=== PATIENT | male | born 1970 | race Caucasian/White ===

== ENCOUNTER 2023-04-12 13:02 | Outpatient (CLI) | payer MEDICAID, SELFPAY | END 2023-04-12 13:03 | disposition home or self-care (01) | PROVIDERS: PCP Internal Medicine; Visit Provider Internal Medicine | DX: E78.5 Hyperlipidemia, unspecified (principal); Z12.5 Encounter for screening for malignant neoplasm of prostate; Z13.29 Encounter for screening for other suspected endocrine disorder | CPT/HCPCS: 80053; 80061; 84153; 84443 ==

== ENCOUNTER 2023-07-20 08:12 | Outpatient (CLI) | payer MEDICAID, SELFPAY | END 2023-07-20 08:13 | disposition home or self-care (01) | PROVIDERS: PCP Internal Medicine; Visit Provider Internal Medicine | DX: R63.4 Abnormal weight loss (principal) | CPT/HCPCS: 80053; 84443 ==

== ENCOUNTER 2023-07-26 14:04 | Outpatient (CLI) | payer MEDICAID, SELFPAY ==
--- NOTE | 2023-07-26 15:00 | CRLHL7_ITS ---
For Patients: As a result of the Century Cures Act, medical imaging exams and procedure reports are released immediately into your electronic medical record. You may view this report before your referring provider. If you have questions, please contact your health care provider. Indication: RECENT WEIGHT LOSS, FATIGUE, ABD PAIN, LBP, SHOULDER PAIN Technique: Postcontrast CT chest, abdomen and pelvis. 74 cc Isovue 370 intravenous contrast Please note that all CT scans at this facility use dose modulation, iterative reconstruction, and/or weight-based dosing when appropriate to reduce radiation dose to as low as reasonably achievable. Comparison: 03/27/2023 Findings: In the chest, there is a 1.2 cm lobular nodule within the periphery of the right lower lobe. No pleural effusion. Mild dependent atelectasis. Mild fullness of the right hilar lymph nodes measuring up to 1.1 cm. No enlarged mediastinal lymph nodes. No pneumothorax. No fracture. In the abdomen, no intrahepatic mass is present. The gallbladder is normal. Hypodense lesion within the tail of the pancreas measuring 1.3 cm. Spleen is normal. Adrenal glands unremarkable. Ill-defined stranding within the left upper retroperitoneal fat. Mildly prominent periportal lymph nodes measuring up to 1.2 cm. Vascular calcifications. In the pelvis, there is increased stool in the rectum. No bowel obstruction. No free air or free fluid. No abscess. The appendix is absent. No abdominal wall hernia. Postop changes of bilateral vasectomy. Degenerative changes L3-4 and L5-S1. Impression: 1.3 cm hypodense lesion within the tail of the pancreas. Interval development of adjacent inflammatory changes within the upper left retroperitoneal fat. Differential diagnosis includes infected/inflamed pancreatic cyst, focal pancreatitis or solid mass. Pre and postcontrast MRI of the pancreas recommended for further evaluation. Lobular pulmonary nodule within the right lower lobe measuring 1.2 cm with suspicion of mild right hilar adenopathy. CT PET recommended for further evaluation. Please note that all CT scans at this facility use dose modulation, iterative reconstruction, and/or weight-based dosing when appropriate to reduce radiation dose to as low as reasonably achievable. Dictated by Galen Momin MD @ 07/28/2023 12:40:09 PM (Electronically Signed)
== END 2023-07-26 14:05 | disposition home or self-care (01) ==
LOC: CT 14:05
PROVIDERS: PCP Internal Medicine; Visit Provider Internal Medicine
DX: R63.4 Abnormal weight loss (principal); R91.1 Solitary pulmonary nodule; K86.9 Disease of pancreas, unspecified; R53.83 Other fatigue; R10.9 Unspecified abdominal pain
CPT/HCPCS: 71260; 74177; Q9967

== ENCOUNTER 2023-08-10 08:25 | Outpatient (CLI) | payer MEDICAID, SELFPAY ==
--- NOTE | 2023-08-10 08:15 | CRLHL7_ITS ---
For Patients: As a result of the Century Cures Act, medical imaging exams and procedure reports are released immediately into your electronic medical record. You may view this report before your referring provider. If you have questions, please contact your health care provider. INDICATION: Pancreatic tail abnormality follow-up. TECHNIQUE: Abdominal MRI. T1-T2 diffusion postcontrast T1 imaging. Contrast: 20 cc intravenous gadolinium. COMPARISON: CT scan abdomen and pelvis 07/26/2023. CT scan 03/27/2023. CT scan 10/12/2018. FINDINGS: Pancreas: Well-circumscribed area of rounded abnormal signal in the extreme tail of the pancreas. The intensity is moderate on T2 and decreased on T1. There may be some minimal peripheral gadolinium enhancement. This measures between 9 and 10 mm. No overall change in size. It was present in March as well but not present in 2017. Suggestion of slight decrease in phlegmon stranding adjacent to the tail of the pancreas in the anterior to Gerota`s fascia at the left kidney. No pancreatic duct dilatation. Liver and biliary tree: Stable no change unremarkable. Spleen adrenal glands and kidneys: No change unremarkable. Lymph nodes: No adenopathy. Ascites: Absent. IMPRESSION: 1. No progression of the lesion at the pancreatic tail. The phlegmon about the tail may be somewhat decreased but it is difficult to compare between different modalities. 2. Overlapping features could suggest either a pseudocyst from focal pancreatitis or a pancreatic neoplasm. 3. Continued surveillance is suggested. The lesion was relatively well visualized on CT scan, if CT surveillance is desired a multiphasic arterial and venous pancreatic protocol is suggested. 4. Please consider GI consult. It might be possible to potentially evaluate the lesion endoscopically through sonographic window from the stomach. Dictated by Mike Leach MD @ 08/14/2023 5:07:09 PM (Electronically Signed)
== END 2023-08-10 08:26 | disposition home or self-care (01) ==
LOC: MRI 08:25
PROVIDERS: PCP Internal Medicine; Visit Provider Internal Medicine
DX: K86.89 Other specified diseases of pancreas (principal)
CPT/HCPCS: 74183; A9575

== ENCOUNTER 2023-08-26 15:44 | Outpatient (CLI) | payer MEDICAID, SELFPAY ==
--- NOTE | 2023-08-26 16:15 | PE_ITS ---
[facility] [address] [facility] [address] Phone:?[phone] Fax:?[phone] Referring Physician Information: Eleno Vines M.D. [address] [facility] [address] Phone:?[phone] Fax:?[phone] Patient:Carole Oro D.O.B:?1970 Sex:?Male Phone:?[phone] [facility] MRN:?[id number] Exam Date:?08/26/2023 EXAM: PET EYES TO THIGHS, CANCER RESTAGING Addendum A ADDENDUM: The corrected exam title is as follows. This is a technical addendum only, provided for documentation and coding purposes. There are no changes to the interpretation of the exam. PROCEDURE: PET WHOLE BODY CANCER RESTAGING CLINICAL INFORMATION: Pancreatic cancer. TECHNICAL INFORMATION: Helical acquisition of data was obtained from the vertex to the toes with reconstruction of 3.75 mm thick images at 3.[address] data was used for attenuation correction. PET scanning was performed through the same anatomic range 60 minutes following administration of 11.84 mCi of 18-FDG delivered intravenously. The patient's glucose at the time of the injection was 91 mg/dL. PET, CT and PET/CT fusion images are interpreted using a computer viewing workstation. PET, CT and PET/CT fusion images were archived and saved in the patient's permanent medical record. COMPARISON: Abdominal MRI from 08/10/2023, CT from 07/26/2023, and prior studies. INTERPRETATION: Head and Neck: There are no abnormal hypermetabolic foci within the head or neck. There is physiologic uptake in the intracranial soft tissues. Focally increased FDG uptake at the level of vocal cords (Se 2 Im 93) is likely physiologic/volitional. Chest: Three right hilar lymph nodes demonstrate modest hypermetabolism (Se 2 Im 136, 139, 140, SUVmax = 5.7). Peripheral consolidation in the ipsilateral lower lobe (Se 2 Im 136) is not hypermetabolic (SUVmax = 1.98). Background mediastinal blood pool uptake has a maximum SUV of 2.61. Abdomen and Pelvis: There are no abnormal hypermetabolic foci within the abdomen or pelvis. Specifically, the known hypoattenuating lesion in the pancreatic tail (Se 2 Im 193) has low level FDG uptake (SUVmax = 2.69), strongly favoring a benign etiology. Background hepatic parenchymal uptake has a maximum SUV of 3.31. There is physiologic excretion of radiotracer in the urine and bowel. No abdominopelvic lymphadenopathy in terms of size, morphology, or metabolic rate. Skeleton, Musculature, and Integument: No abnormal hypermetabolic foci within the skeleton. No anoop osteoblastic or osteolytic disease. CONCLUSION: 1. No evidence of hypermetabolic malignancy. 2. Hypoattenuating lesion in the pancreatic tail has low level FDG uptake, which strongly favors a benign etiology (e.g., pseudocyst, benign cystic neoplasm). 3. Probable postinflammatory residua in the right lower lobe with ipsilateral reactive lymphadenopathy in the hilum. Electronically signed on 08/27/2023 11:28:00 AM by Rasta Nathan M.D.
== END 2023-08-26 15:45 | disposition home or self-care (01) ==
PROVIDERS: PCP Internal Medicine; Visit Provider Internal Medicine
DX: C25.9 Malignant neoplasm of pancreas, unspecified (principal)
CPT/HCPCS: 78815; 78816; A9552

== ENCOUNTER 2024-01-12 10:04 | Outpatient (CLI) | payer MEDICAID, SELFPAY | END 2024-01-12 10:05 | disposition home or self-care (01) | PROVIDERS: PCP Internal Medicine; Visit Provider Internal Medicine | DX: K85.90 Acute pancreatitis without necrosis or infection, unspecified (principal) | CPT/HCPCS: 80053; 82150 ==

== ENCOUNTER 2024-08-09 13:42 | Outpatient (CLI) | payer MEDICAID, SELFPAY ==
--- OUTSIDE RECORDS SUMMARY | 2024-08-09 13:44 | XMS_ITS | Referral Summary ---
Author Organization [facility] Address [address] [place] [address] Care Team Providers Care Jacquard Plate Maker Name Role Phone Unavailable Primary Care Provider Unavailabl e Source Comments Patient records contain information from all sites at [facility]. For routine questions regarding patient records, call [phone] during business hours, M-F 8:00 AM - 5:00 PM Central Time. Record requests for emergency care only can be directed to [phone] at any time.[facility] Encounters Date Type Department Care Team Description 07/17/2024 Clinical Communication Department of Nicotine Dependence, [facility], in [place], [place] [address] [place] [address] Jud Weaver M.S., L.A.D.C., L.P.C.C. Nicotine Dependence from Last 3 Months Allergies Active Allergy Reactions Criticality Noted Date Comments Morphine Itching Low 06/09/2007 Feels like poison octavio Peanut Other (see comments) 11/15/2019 Itching mouth Medications multivitamin-ir on-FA (CENTRUM COMPLETE) 18-400 mg-mcg per tablet Take 1 tablet by mouth daily. 01/06/2024 Active acetaminophen (TYLENOL) 500 mg tablet Take 2 tablets (1,000 mg total) by mouth every 6 (six) hours as needed for pain. 01/06/2024 Active rosuvastatin (CRESTOR) 20 mg tablet Take 1 tablet (20 mg total) by mouth at bedtime. 90 tablet 3 01/06/2024 Active thiamine (VITAMIN B1) 100 mg tablet Take 1 tablet (100 mg total) by mouth daily. 5 tablet 01/06/2024 Active oxyCODONE (ROXICODONE) 5 mg immediate release tabletIndicatio ns:Acute Pain Take 1 tablet (5 mg total) by mouth every 6 (six) hours as needed for severe pain or score 7-10 of 10 Indication: Acute Pain. 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 Lumbar Re gion 06/26/2009 Herpes Genitalis 12/13/2007 Nicotine Dependence Unspecified 12/13/2007 Affective Disorder 06/15/2007 Immunizations Name Administration Dates Next Due DTaP (Infanrix, Tripedia) 03/12/1976 Polio, Unspecified 03/12/1976 Tdap 03/28/2022,08/05/2011,08/14/2010 Social History Tobacco Use Types Packs/Day Years Used Date Smoking Tobacco: Every Day Cigarettes Tobacco Cessation:Ready to Q uit: Not Asked; Counseling Given: Not Answered Alcohol Use Standard Drinks/Week Comments Yes 0 (1 standard drink = 0.6 oz pur e alcohol) [facility] Utilities Answer Date Recorded In the past 12 months has [facility] [employer], oil, or water [employer] threatened to shut off services in your home? No 01/03/2024 Humiliation, Afraid, Rape, and Kick questionnair e Answer Date Recorded Within the last year, have y ou been afraid of your partner or ex-partner? No 01/03/2024 Within the last year, have y ou been humiliated or emotionally abused in other ways by your partner or ex-partner? No Within the last year, have y ou been kicked, hit, slapped, or otherwise physically hurt by your partner or ex-partner? No 01/03/2024 Within the last year, have y ou been raped or forced to have any kind of sexual activity by your partner or ex-partner? No 01/03/2024 Hunger Vital Sign Answer Date Recorded Within the past 12 months, y ou worried that your food would run out before you got the money to buy more. Never true 01/03/20 24 Within the past 12 months, t he food you bought just didn't last and you didn't have money to get more. Never true 01/03/2024 PRAPARE - Transportation Answer Date Re corded In the past 12 months, has l ack of transportation kept you from medical appointments or from getting medications? No 12/16 In the past 12 months, has l ack of transportation kept you from meetings, work, or from getting things needed for daily living? No 01/03/2024 Nutrition Answer Date Recorded Nutrition: EVOO Fat Source Unknown 12/19 Nutrition: Servings of Fruits/Vegetables per Day Not on file 12/19/2020 Dental Answer Date Recorded Dental: Regular Dentist Unknown 12/20/19 Housing Stability Answer Date Recorded What is your living situation today? 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 Gender Identity Not on file Sexual Orientation Not on file Last Filed Vital Signs Vital Sign Reading Time Taken Comments Blood Pressure 112/71 01/06/2024 11:00 AM CDT Pulse 93 01/06/2024 11:00 AM CDT Temperature 37.1 ??C (98.8 ??F) 01/06/2024 11:00 AM C DT Respiratory Rate 16 01/06/2024 11:00 AM CDT Oxygen Saturation 97% 01/06/2024 11:00 AM CDT Inhaled Oxygen Concentration - - Weight 68.5 kg (151 lb 0.2 oz) 01/05/2024 9:00 A M CDT Height 177.8 cm (5' 10) 01/03/2024 1:48 PM CDT Body Mass Index 21.67 01/03/2024 1:48 PM CDT Plan of Treatment Not on file Medical Devices Implanted Type Area Studio Model Device Identifier Shelf Expiration Date Model / Serial / Lot Coil Azur Cx Det 018 4x13 - [id number] Implanted:Qty : 1 on 01/04/2024 by Olivier Sosa M.D. at [facility] [employer] 08/17/2028 [id number] / / [id number] Coil Azur Cx Det 018 2x4 - [id number] Implanted:Qty : 1 on 01/04/2024 by Olivier Sosa M.D. at [facility] [employer] 12/15/2026 [id number] / / [id number] Coil Azur Cx Det 018 2x4 - [id number] Implanted:Qty : 1 on 01/04/2024 by Olivier Sosa M.D. at [facility] [employer] 08/17/2028 [id number] / / [id number] Coil Azur Cx Det 018 4x13 - [id number] Implanted:Qty : 1 on 01/04/2024 by Olivier Sosa M.D. at [facility] [employer] 08/17/2027 [id number] / / [id number] Azur Hydropack 18 5cm Implanted:Qty : 1 on 01/04/2024 by Olivier Sosa M.D. at [facility] [employer] 07/17/2028 [id number] / / [id number] Azur Hydropack 18 5cm Implanted:Qty : 1 on 01/04/2024 by Olivier Sosa M.D. at [facility] [employer] 07/17/2028 [id number] / / [id number] Azur Hydropack 18 10cm Implanted:Qty : 1 on 01/04/2024 by Olivier Sosa M.D. at [facility] [employer] 09/16/2028 [id number] / / [id number] Azur Hydropack 18 20cm Implanted:Qty : 1 on 01/04/2024 by Olivier Sosa M.D. at [facility] 07/17/2028 [id number] / / [id number] Procedures Procedure Name Priority Date/Time Associated Diagnosis Comments BASIC METABOLIC PANEL, S/P Routine 01/06/2024 5:07 AM CDT LIPID PANEL, S STAT 01/03/2024 3:03 PM CDT from Last 3 Months or Most Recently Relevant to Health Maintenance Results * Basic Metabolic Panel (01/06/2024 5:07 AM CDT) Potassium, S 4.1 3.6 - 5.2 mmol/L 01/06/2024 6:35 AM CDT DTL Sodium, S 136 135 - 145 mmol/L 01/06/2024 6:35 AM CDT DTL Chloride, S 102 98 - 107 mmol/L 01/06/2024 6:35 AM CDT DTL Bicarbonate, S 24 22 - 29 mmol/L 01/06/2024 6:35 AM CDT DTL Anion Gap 10 7 - 15 01/06/2024 6:35 AM CDT DTL BUN (Blood Urea Nitrogen), S 11 8 - 24 mg/dL 01/06/2024 6:35 AM CDT DTL Creatinine 1.01 0.74 - 1.35 mg/dL 01/06/2024 6:35 AM CDT DTL Estimated GFR (eGFR) 89 >=60 mL/min/BSA 01/06/2024 6:35 AM CDT DTL Comment: Estimated GFR calculated using the 2020 CKD_EPI creatinine equation. Calcium, Total, S 9.0 8.6 - 10.0 mg/dL 01/06/2024 6:35 AM CDT DTL Glucose, S 99 70 - 140 mg/dL 01/06/2024 6:35 AM CDT DTL Blood (Blood, Venous) 01/06/2024 5:07 AM CDT 01/06/2024 6:12 AM CDT Allie Keys M.D., M.P.H. LAB BLOOD ADD-ON Final Result [facility] [address] [place] [address], [facility] DTL [facility] [address] [place] [address] * Lipid Panel (01/03/2024 3:03 PM CDT) Triglycerides 43 mg/dL 01/03/2024 4:56 PM CDT DTL Comment: ----REFERENCE VALUE---- Normal: <150 mg/dL Borderline High: 150-199 mg/dL High: 200-499 mg/dL Very High: > or =500 mg/dL Cholesterol, Total 174 mg/dL 2023 4:56 PM CDT DTL Comment: ----REFERENCE VALUE---- Desirable: < 200 mg/dL Borderline High: 200 - 239 mg/dL High: > or = 240 mg/dL Cholesterol, LDL, Calculated 93 mg/dL 01/03/2024 4:56 PM CDT DTL Comment: ----REFERENCE VALUE---- Desirable: <100 mg/dL Above Desirable: 100-129 mg/dL Borderline High: 130-159 mg/dL High: 160-189 mg/dL Very High: >=190 mg/dL ----ADDITIONAL INFORMATION---- LDL cholesterol calculated using the Allison/NIH equation. Cholesterol, HDL, S 72 >=40 mg/dL 01/03/2024 4:56 PM CDT DTL Cholesterol, Non-HDL, Calculated 102 mg/dL 01/03/2024 4:56 PM CDT DTL Comment: ----REFERENCE VALUE---- Desirable: <130 mg/dL Above Desirable: 130-159 mg/dL Borderline High: 160-189 mg/dL High: 190-219 mg/dL Very High: > or =220 mg/dL Fasting (8 HR or more) Unknown 01/03/2024 3:36 PM CDT DTL Blood (Blood, Venous) 01/03/2024 3:03 PM CDT 01/03/2024 3:36 PM CDT Marcial Cleary M.D., Ph.D. LAB BLOOD ADD-ON Fi nal Result [facility] [address] [place] [address], [place] DTL [facility] [address] [place] [address] from Last 3 Months or Most Recently Relevant to Health Maintenance Insurance [facility] Advance Directives For more information, please contact: [phone] * Full Code (Latest Code Status on File) Date Activated Date Inactivated Comments 01/03/2024 2:35 PM 01/06/2024 2:01 PM Question Answer Comments Full Code: Discussed
--- OUTSIDE RECORDS SUMMARY | 2024-08-09 13:44 | XMS_ITS | Encounter Summary ---
Author Organization [facility] Address [address] [place] [address] Care Team Providers Care Knifeman Name Role Phone Unavailable Primary Care Provider Unavailabl e Encounter Details Date Type Department Care Team (Latest Contact Info) Description 01/03/2024 Intake [facility] Social History Tobacco Use Types Packs/Day Years Used Date Smoking Tobacco: Every Day Cigarettes Alcohol Use Standard Drinks/Week Comments Yes 0 (1 standard drink = 0.6 oz pur e alcohol) [facility] Utilities Answer Date Recorded In the past 12 months has e [employer], gas, oil, or water [email or web address] threatened to shut off services in your [...] your living situation today? 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
--- OUTSIDE RECORDS SUMMARY | 2024-08-09 13:44 | XMS_ITS | Clinical Summary ---
Author Organization [facility] Address [address] [place] [address] Care Team Providers Care Process Expert Name Role Phone Unavailable Primary Care Provider Unavailabl e Source Comments Patient records contain information from all sites at [facility]. For routine questions regarding patient records, call [phone] during business hours, M-F 8:00 AM - 5:00 PM Central Time. Record requests for emergency care only can be directed to [phone] at any time.[facility] Allergies Active Allergy Reactions Criticality Noted Date [...] Nicotine Dependence Unspecified 12/13/2007 Affective Disorder 06/15/2007 Encounters Date Type Department Care Team Description 07/17/2024 Clinical Communication Department of Nicotine Dependence, [facility], in [place] [address] [place] [address] Jud Weaver M.S., L.A.D.C., L.P.C.C. Nicotine Dependence from Last 3 Months Immunizations Name Administration Dates Next Due DTaP (Infanrix, Tripedia) 03/12/1976 Polio, Unspecified 03/12/1976 Tdap 03/28/2022,08/05/2011,08/14/2010 Social History Tobacco Use Types Packs/Day Years Used Date Smoking Tobacco: Every Day Cigarettes Tobacco Cessation:Ready to Q uit: Not Asked; Counseling Given: Not Answered Alcohol Use Standard Drinks/Week Comments Yes 0 (1 standard drink = 0.6 oz pur e alcohol) [facility] Utilities Answer Date Recorded In the past 12 months has [facility] [employer], oil, or water [employer] threatened to shut off services in your [...] your living situation today? 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 Gender Identity Not on file Sexual Orientation [...] 01/03/2024 1:48 PM CDT Plan of Treatment Health Maintenance Due Date Last Done Comments CT Colonography 1970 Cologuard 1970 Colonoscopy 1970 Colorectal Cancer Surveillance 1970 HIV Screening 1970 Hepatitis C Screening 1970 Tobacco Cessation counseling 1970 Pneumococcal vaccine (0-64 y ears) (1 of 2 - PCV) 1976 Hepatitis B Vaccines (1 of 3 - 19+ 3-dose series) 1989 Zoster Vaccines (1 of 2) 2020 Depression Screening (Annual PHQ-2) 10/18/2023 COVID-19 Vaccine (1 - 2023-2 5 season) 2024 Influenza Vaccine (#1) 2024 Fasting Glucose for Diabetes Screening 01/05/2027 01/06/2024, 01/05/2024, 01/04/2024, Additional history exists Lipid (Cholesterol) Screening 01/02/2029 01/03/2024 DTaP,Tdap,and Td Vaccines (5 - Td or Tdap) 03/28/2032 03/28/2022, 08/05/2011, 08/14/2010, Additional history exists Medical Devices Implanted Type Area Major Account Manager Device Identifier Shelf Expiration Date Model / Serial / Lot Coil Azur Cx Det 018 4x13 - [id number] Implanted:Qty : 1 on 01/04/2024 by Olivier Sosa M.D. at [facility] [employer] 08/17/2028 [id number] / / [id number] Coil Azur Cx Det 018 2x4 - [id number] Implanted:Qty : 1 on 01/04/2024 by Olivier Sosa M.D. at [facility] [employer] 12/15/2026 [id number] / / [id number] Coil Azur Cx Det 018 2x4 - [id number] Implanted:Qty : 1 on 01/04/2024 by Olivier Sosa M.D. at [facility] [employer] 08/17/2028 [id number] / / [id number] Coil Azur Cx Det 018 4x13 - [id number] Implanted:Qty : 1 on 01/04/2024 by Olivier Sosa M.D. at [facility] [employer] 08/17/2027 [id number] / / [id number] Azur Hydropack 18 5cm Implanted:Qty : 1 on 01/04/2024 by Olivier Sosa M.D. at [facility] [employer] 07/17/2028 [id number] / / [id number] Azur Hydropack 18 5cm Implanted:Qty : 1 on 01/04/2024 by Olivier Sosa M.D. at [facility] [employer] 07/17/2028 [id number] / / [id number] Azur Hydropack 18 10cm Implanted:Qty : 1 on 01/04/2024 by Olivier Sosa M.D. at [facility] [employer] 09/16/2028 [id number] / / [id number] Azur Hydropack 18 20cm Implanted:Qty : 1 on 01/04/2024 by Olivier Sosa M.D. at [facility] [employer] 07/17/2028 [id number] / / [id number] Procedures Procedure Name Priority Date/Time Associated [...] M.D., M.P.H. LAB BLOOD ADD-ON Final Result [address] [address], [facility] [address] [address] * Lipid Panel (01/03/2024 3:03 PM CDT) Pathologist [facility] Triglycerides 43 mg/dL 01/03/2024 4:56 PM CDT [...] LAB BLOOD ADD-ON Fi nal Result [facility] [address] [place] [address], [facility] [address] [place] [address] from Last 3 Months or Most Recently Relevant to Health Maintenance Insurance [facility] Member Subscriber Plan / Payer (Ef fective 2021-Present) Name:Polo Oro Relation to Subscriber:Self Name:Polo Oro Payer ID:[id number] (NAIC) _[id number] Type:Medicaid HMO Address: [facility] [address] [id number] Advance Directives For more information, please contact: [phone] * Full Code (Latest Code Status on File) Date Activated Date Inactivated Comments 01/03/2024 2:35 PM 01/06/2024 2:01 PM Question Answer Comments Full Code: Discussed
--- OUTSIDE RECORDS SUMMARY | 2024-08-09 13:44 | XMS_ITS | Encounter Summary ---
Author Organization [facility] Address [address] [place] [address] Care Team Providers Care Gas Maker Helper Name Role Phone Unavailable Primary Care Provider Unavailabl e Reason for Visit * Reason Onset Date Comments Nicotine Dependence 07/17/2024 Encounter Details Date Type Department Care Team (Latest Contact Info) Description 07/17/2024 Clinical Communication Department of Nicotine Dependence, [facility], in [place], [place] [address] [place] [phone] Jud Weaver M.S., L.A.D.C., L.P.C.C. [address] [place] [phone] Nicotine Dependence Social History Tobacco Use Types Packs/Day Years Used Date Smoking Tobacco: Every Day Cigarettes Alcohol Use Standard Drinks/Week Comments Yes 0 (1 standard drink = 0.6 oz pur e alcohol) [facility] Utilities Answer Date Recorded In the past 12 months has [facility] [employer], gas, oil, or water [employer] threatened to shut off services in your [...] your living situation today? 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
--- OUTSIDE RECORDS SUMMARY | 2024-08-09 13:44 | XMS_ITS | Continuity of Care Document ---
Author Organization [facility] Address [address] [place] [address] Phone Care Team Providers Care Alarm Security Or Surveillance Monitor Name Role Phone Lynsey Sylvester MD Unavailable Unavailable Medications Medication Instructions Dosage Effective Dates (start - stop) Status Comments Vicodin 5 mg-500 mg Tab take 1 Tablet by Oral route every 8 hours as needed - Active written rx from clinic aam Procedures Procedure Date Postop followup visit [facility] Assist Lamin[facility], [facility]explr [facility] visit,[facility] 2009 Postop followup visit Low back disk surgery/decompress 2007 PA Assist Low back disk surgery/decompre ss Office consultation, [facility] X-ray exam lower spine 2-3 views 2006 Advance Directives Directive Yes / No Effective Date File Name No Information Encounters Encounter Description Practice Location Reason(s) For Visit Diagnoses Date Provider Providers Copied on Encounter [facility], [address] [place] [address], [address], [place] tel:[phone] [facility] No Information 1 Higinio Menon. [facility], [address] [place] [address] [address], [place], [id number] , [place]. tel:[phone] [facility], [address] [place] [address], [address], [place] tel:[phone] [facility] No Information 0 0 Mehbod Amir. [facility], [address], [place], [place], [id number] , [place]. [phone] Referring Provider: Chandana Chowdhury [facility], [place], [address]. tel:[phone] [facility], [address] [place], [place] [address], [place], [address], [place] tel:[phone] [facility] No Information 9-201 0 Mehbod Amir. [facility], [address], [place], [place], [id number] , [place]. tel:[phone] Referring Provider: Chandana Chowdhury [facility], [place], [address]. tel:[phone] Office/outpat ient visit,est, low [facility], [address] [place] [address], [place], [address], [place] tel:[phone] [facility] No Information 1-201 0 Mehbod Amir. [facility], [address] [place] [address] [address], [place], [place], [id number] , [place]. [phone] Referring Provider: Chandana Chowdhury [facility] Maria M [facility], [place], [address]. tel:[phone] [facility], [address] [place], [place] [address]ite [facility], [place], [address], [place] tel:[phone] [facility] No Information 200 8 Mehbod Amir. [facility], [address] [place] [address] [address], [place], [place], [id number] , [place]. [phone] Referring Provider: Chandana Chowdhury [facility] Maria M [facility], [place], [address]. tel:[phone] [facility], [address] [place], [place] [address] [place] [address], [address], [place] tel:[phone] [facility] No Information 3-200 8 Mehbod Amir. [facility], [address] [place] [address] [address], [place], [place], [id number] , [place]. tel:[phone] Referring Provider: Chandana Chowdhury [facility] [address], [place], [address]. tel:[phone] Office consultation, low [facility], [address] [place], [place] [address], [place], [address], [place] tel:[phone] [facility] No Information 8-200 7 Mehbod Amir. [facility], [address], [place], [place], [id number] , [place]. tel:[phone] Referring Provider: Chandana Chowdhury [facility] [address], [place], [address]. tel:[phone] Family History Family Member Type Diagnosis Age At Onset No Information Payers Payer name Insurance type Covered democrat ID Yvonne shannon(s) [facility] [id number] Social History Type Description Quantity Date Captured Comments Sex Male Smoking Status No Information Chief Complaint And Reason For Visit No Information Reason For Referral Reason For Referral No Information History Of Present Illness Encounter Date Complaint History Of Prese nt Illness No Information Functional Status Date Functional Assessmen t No Information Instructions Date Instruction Additional Infor mation No Information Assessments Type Assessment Date No Information Patient Care Teams Name Effective Dates (start - stop) Status Members No Information
--- OUTSIDE RECORDS SUMMARY | 2024-08-09 13:44 | XMS_ITS ---
Author Organization [facility] Address [address] [place] [address] Care Team Providers Care Baker Head Name Role Phone Unavailable Unavailable Unavailable Surgery Details Not on file Complications Check Surgery Details section. Procedure Estimated Blood Loss Check Surgery Details section. Procedure Findings Check Surgery Details section. Procedure Specimens Taken Check Surgery Details section.
--- OUTSIDE RECORDS SUMMARY | 2024-08-09 13:45 | XMS_ITS | Clinical Summary ---
Author Organization [facility] Address [place], [place] [address] Care Team Providers Care Grade Teacher Name Role Phone Eleno Vines MD Primary Care Provider Allergies Active Allergy Reactions Criticality Noted Date Comments Morphine Itching Low 06/09/2007 Feels like poison octavio Peanut Other - Describe In Comment Field 11/15/2019 Itching mouth Medications Medication Sig Dispensed Refills Start Date End Date Status lithium carbonate (LITHOBID) 300 mg Controlled-Release tablet 10/26/2019 Active valACYclovir (VALTREX) 1 gram tabletIndications:H SV (herpes simplex virus) infection Take 1 tablet by mouth once daily. 30 tablet 11 12/18/2020 Active terbinafine HCL (LamISIL) 250 mg tabletIndications:T inea pedis of both feet,Dermatophytosi s of nail Take 1 Tablet (250 mg) by mouth once daily. 90 Tablet 12/31/2020 Active nicotine 21 mg/24 hr (NICODERM; HABITROL) 21 mg/24 hr patchIndications:Sm oking greater than 40 pack years Apply 1 Patch on dry, clean, hairless skin once daily. 30 Patch 11 10/01/2021 Active cabergoline (DOSTINEX) 0.5 mg tabletIndications:D elayed ejaculation Take 0.5 mg by mouth every Wednesday and . 14 Tablet 11 11/10/2021 Active testosterone enanthate (Xyosted) 75 mg/0.5 mL atInIndications:Hyp ogonadism in male Inject 75 mg subcutaneous once weekly. 4 Each 5 03/04/2022 Active Active Problems Problem Noted Date Diagnosed Date Failed back syndrome 02/18/2011 Hyperplastic colon polyp 12/29/2010 Overview (12/29/2010): Colonoscopy 12/2010 polyp repeat in 10 years LESLIE 06/2009 AHI- 9, supine 22 09/23/2009 Degeneration of cervical intervertebral disc 06/2009 Lumbar Disk Injury, 2006 Discectomy 06/26/2009 Tobacco use disorder 12/13/2007 Genital herpes, unspecified 12/13/2007 Lumbago 08/04/2007 Unspecified episodic mood disorder 06/15/2007 Immunizations Name Administration Dates Next Due DTaP 03/12/1976 Polio Virus, Unspecified 03/12/1976 Td (Age >=7 Years) 08/24/2000 Tdap 08/05/2011,08/14/2010 Family History * Patient is adopted Medical History Relation Name Comments Other Daughter 2 gallstones, s/p cholecystectomy Unknown Father Good Health Mother Good Health Son 2 Relation Name Status Comments Daughter 1 Alive Daughter 2 Father Other unknown Mother Alive Son 1 Alive Son 2 Social History Tobacco Use Types Packs/Day Years Used Date Smoking Tobacco: Every Day Cigarettes 1 27 Smokeless Tobacco: Never Tobacco Cessation:Ready to Q uit: Yes; Counseling Given: Yes Comments:Has tried many ways to quit Alcohol Use Standard Drinks/Week Comments Yes 0 (1 standard drink = 0.6 oz pur e alcohol) 2 drinks 4 days/week Sex and Gender Information Value Date Recorded Sex Assigned at Not on file Gender Identity Not on file Sexual Orientation Not on file Obstetrics History Last Filed Vital Signs Vital Sign Reading Time Taken Comments Blood Pressure 118/82 10/01/2021 11:18 AM DESIZING MACHINE OPERATOR HEAD END Pulse 90 10/01/2021 11:18 AM DESIZING MACHINE OPERATOR HEAD END Temperature 36.8 ??C (98.2 ??F) 02/26/2016 7:35 PM CD T Respiratory Rate 18 10/09/2020 10:01 AM DESIZING MACHINE OPERATOR HEAD END Oxygen Saturation 99% 10/01/2021 11:18 AM DESIZING MACHINE OPERATOR HEAD END Inhaled Oxygen Concentration - - Weight 76.2 kg (168 lb) 10/01/2021 11:18 AM DESIZING MACHINE OPERATOR HEAD END Height 178 cm (5' 10.08) 02/26/2016 7:35 PM CDT Body Mass Index 24.05 02/26/2016 7:35 PM CDT Plan of Treatment Health Maintenance Due Date Last Done Comments Depression screening for age 12+ 1982 Lipids for age 45-75 2015 02/07/2009 BMI (ht and wt on same day) for age 18+ 02/25/2017 02/26/2016 Zoster (shingles) series for age 50+ (1 of 2) 2020 Colonoscopy through age 75 12/23/2020 12/23/2010 Tetanus booster 08/05/2021 08/05/2011, 08/14/2010, 08/24/2000 COVID-19 vaccine series (2023- season) 2024 Influenza for age 50-64 06/18/2024 HIV for age 15-65 Completed 09/20/2008 Hepatitis C screening for ag e 18-79 Completed 09/20/2008 Tdap Completed 08/05/2011, 08/14/2010 Pneumococcal series for age 6-64 Aged Out No longer eligible b ased on patient's age to complete this topic Procedures Procedure Name Priority Date/Time Associated Diagnosis Comments LIPID PANEL Routine 02/07/2009 8:15 AM CDT Lipid Screening EXPOSURE (BBF) RAPID HIV Routine 09/20/2008 3:20 PM DESIZING MACHINE OPERATOR HEAD END Accidental Puncture or Laceration During a Procedure EXPOSURE (BBF) ANTI HCV Routine 09/20/2008 3:20 PM DESIZING MACHINE OPERATOR HEAD END Accidental Puncture or Laceration During a Procedure from Last 3 Months or Most Recently Relevant to Health Maintenance Results * (ABNORMAL) LIPID PANEL (02/07/2009 8:15 AM CDT) CHOLESTEROL,TOTAL 208(H) 110 - 199 mg/dL [facility] TRIGLYCERIDES 405(H) <150 mg/dL [facility] HDL CHOLESTEROL 38(L) >40 mg/dL [facility] CHOL/HDL RATIO 5.47(H) <4.51 [facility] LDL CHOLESTEROL Invalid LDL when Trig >400. [facility] PATIENT STATUS Fasting [facility] Blood specimen (specimen) BLOOD SPECIMEN / Unknown 02/07/2009 8:15 AM CDT 02/07/2009 8:[address] MD CHEMISTRY [facility] [address] [place] [address] * PATIENT SOURCE RAPID HIV (09/20/2008 3:20 PM DESIZING MACHINE OPERATOR HEAD END) SOURCE RAPID HIV SCREEN Non-react dash (Nonreact dash) [facility] Blood specimen (specimen) BLOOD SPECIMEN / Unknown 09/20/2008 3:20 PM DESIZING MACHINE OPERATOR HEAD END 09/20/2008 3:13 PM DESIZING MACHINE OPERATOR HEAD END Lee Deal MD SEND OUTS [facility] INTERNAL ZIP [address] [place] [address] * PATIENT SOURCE ANTI HCV (09/20/2008 3:20 PM DESIZING MACHINE OPERATOR HEAD END) SOURCE ANTI HCV Non-react dash [facility] Blood specimen (specimen) BLOOD SPECIMEN / Unknown 09/20/2008 3:20 PM DESIZING MACHINE OPERATOR HEAD END 09/20/2008 3:13 PM DESIZING MACHINE OPERATOR HEAD END Lee Deal MD SEND OUTS [facility] INTERNAL ZIP [address] [place] [address] from Last 3 Months or Most Recently Relevant to Health Maintenance Advance Directives * Full Code (Latest Code Status on File) Date Activated Date Inactivated Comments 08/26/2010 10:43 AM 08/27/2010 2:10 PM * Full Code Date Activated Date Inactivated Comments 11/01/2007 8:49 AM 11/02/2007 4:04 PM * Full Code Date Activated Date Inactivated Comments 11/01/2007 6:23 AM 11/01/2007 8:49 AM Care Teams Grade Teacher Relationship Specialty Start Date End Date Eleno Vines MD [address] [place] [address] PCP - General Internal Medicine 08/11/19
--- OUTSIDE RECORDS SUMMARY | 2024-08-09 13:45 | XMS_ITS | Referral Summary ---
Author Organization [facility] Address [address] [place] [address] Care Team Providers Care Card Boxer Name Role Phone No Ref-Primary, Physician Primary Care Provider Allergies Active Allergy Reactions Criticality Noted Date Comments Morphine Itching Low 06/09/2007 Feels like poison octavio Social History Tobacco Use Types Packs/Day Years Used Date Smoking Tobacco: Every Day Cigarettes Smokeless Tobacco: Never Tobacco Cessation:Ready to Q uit: Not Asked; Counseling Given: Not Answered Alcohol Use Standard Drinks/Week Comments Yes 0 (1 standard drink = 0.6 oz pur e alcohol) 1 a day Adolescent Education Answer Date Record ed Getting School Help Needed Not on file 09/02 Sex and Gender Information Value Date Recorded Sex Assigned at Not on file Legal Sex Male 3:48 AM SORT LINE WORKER Gender Identity Not on file Sexual Orientation Not on file Last Filed Vital Signs Vital Sign Reading Time Taken Comments Blood Pressure 138/82 09/07/2023 10:50 AM SORT LINE WORKER Pulse 66 09/07/2023 10:50 AM SORT LINE WORKER Temperature - - Respiratory Rate 15 09/07/2023 10:50 AM SORT LINE WORKER Oxygen Saturation 99% 09/07/2023 10:50 AM SORT LINE WORKER Inhaled Oxygen Concentration - - Weight 70.3 kg (155 lb) 09/07/2023 9:40 AM SORT LINE WORKER Height 177.8 cm (5' 10) 09/07/2023 9:40 AM SORT LINE WORKER Body Mass Index 22.24 09/07/2023 9:40 AM SORT LINE WORKER Plan of Treatment Not on file [facility] Care Teams Card Boxer Relationship Specialty Start Date End Date No Ref-Primary, Physician PCP - General 08/27/23
--- OUTSIDE RECORDS SUMMARY | 2024-08-09 13:45 | XMS_ITS | Clinical Summary ---
Author Organization [facility] Address [address] [place] [address] Care Team Providers Care Outdoor Pursuits Instructor Name Role Phone No Ref-Primary, Physician Primary [...] on file Legal Sex Male 3:48 AM MEDICAL EDITOR Gender Identity Not on file Sexual Orientation Not on file Last Filed Vital Signs Vital Sign Reading Time Taken Comments Blood Pressure 138/82 09/07/2023 10:50 AM MEDICAL EDITOR Pulse 66 09/07/2023 10:50 AM MEDICAL EDITOR Temperature - - Respiratory Rate 15 09/07/2023 10:50 AM MEDICAL EDITOR Oxygen Saturation 99% 09/07/2023 10:50 AM MEDICAL EDITOR Inhaled Oxygen Concentration - - Weight 70.3 kg (155 lb) 09/07/2023 9:40 AM MEDICAL EDITOR Height 177.8 cm (5' 10) 09/07/2023 9:40 AM MEDICAL EDITOR Body Mass Index 22.24 09/07/2023 9:40 AM MEDICAL EDITOR Plan of Treatment Health Maintenance Due Date Last Done Comments ADVANCE CARE PLANNING 1970 ANNUAL REVIEW OF HM ORDERS 1970 CT COLONOGRAPHY 1970 FIT 1970 FLEX SIG 1970 GLUCOSE 1970 NICOTINE/TOBACCO CESSATION COUNSELING Q 1 YR 1970 YEARLY PREVENTIVE VISIT 1970 sDNA (Cologuard) 1970 Pneumococcal Vaccine: Pediatrics (0 to 5 Years) and At-Risk Patients (6 to 64 Years) (1 of 2 - PCV) 1976 COLONOSCOPY 1980 COLORECTAL CANCER SCREENING 1980 HIV SCREENING 1985 HEPATITIS C SCREENING 1988 HEPATITIS B IMMUNIZATION (1 of 3 - 19+ 3-dose series) 1989 LIPID 2010 LUNG CANCER SCREENING 2020 ZOSTER IMMUNIZATION (1 of 2) 2020 PHQ-2 (once per calendar year) 2023 COVID-19 Vaccine ( - 2023-25 season) 2024 INFLUENZA VACCINE (#1) 2024 DTAP/TDAP/TD IMMUNIZATION (5 - Td or Tdap) 03/28/2032 03/28/2022, 08/05/2011, 08/14/2010, Additional history exists RSV VACCINE (1 - 1-dose 75+ series) 2045 HPV IMMUNIZATION Aged Out No longer e ligible based on patient's age to complete this topic MENINGITIS IMMUNIZATION Aged Out No l onger eligible based on patient's age to complete this topic RSV MONOCLONAL ANTIBODY Aged Out No l onger eligible based on patient's age to complete this topic Insurance [facility] [place] [place] [address] Care Teams Outdoor Pursuits Instructor Relationship Specialty Start Date End Date No Ref-Primary, Physician PCP - General 08/27/23
--- NOTE | 2024-08-09 14:00 | CRLHL7_ITS ---
For Patients: As a result of the Century Cures Act, medical imaging exams and procedure reports are released immediately into your electronic medical record. You may view this report before your referring provider. If you have questions, please contact your health care provider. INDICATION: Acute pancreatitis. COMPARISON: CT abdomen and pelvis March 27, 2023 and July 26, 2023; MRI abdomen August 10, 2023; PET-CT 08/26/2023. TECHNIQUE: CT abdomen pelvis with intravenous contrast; coronal and sagittal reformats. FINDINGS: No nodules through the lung bases. No evidence of pleural effusion. No focal hepatic or splenic pathology. Embolization coils identified in the left upper quadrant of the abdomen in and around the pancreatic tail. A 2.4 x 1.5 cm cystic area identified involving the tail of the pancreas; no gross interval change when compared to July 2023. 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 No evidence of pancreatic ductal dilatation. Gallbladder is unremarkable. No adrenal pathology. Kidneys are unremarkable. No retroperitoneal lymphadenopathy. No evidence of abdominal or pelvic ascites. Impression : 1. 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 2. A 2.4 x 1.5 cm cystic lesion in the tail of the pancreas; relatively stable without any grossly control change. Please note that all CT scans at this facility use dose modulation, iterative reconstruction, and/or weight-based dosing when appropriate to reduce radiation dose to as low as reasonably achievable. Dictated by Roberta Reid MD @ 08/11/2024 12:04:31 PM (Electronically Signed)
--- NOTE | 2024-08-09 14:30 | CRLHL7_ITS ---
For Patients: As a result of the Century Cures Act, medical imaging exams and procedure reports are released immediately into your electronic medical record. You may view this report before your referring provider. If you have questions, please contact your health care provider. DXA BONE MINERAL DENSITY STUDY Reason for exam: Acute pancreatitis. Current height (in): 70. Weight (lb): 160. Menopause age: N/A. Ethnicity: White. 1. Have you had a previous hip or vertebral fracture? Yes. 2. Have you had any fractures during your adult life which did not result from significant trauma (e.g., auto accident)? Yes. 3. Did either of your parents have a hip fracture? No. 4. Do you smoke? Yes. 5. Have you ever taken Glucocorticoids? No. 6. Do you have rheumatoid arthritis? No. 7. Do you have secondary osteoporosis? No. 8. Do you drink 3 or more alcoholic drinks per day? No. 9. Are you being treated for osteoporosis? No. 10. Have you ever taken any of the following medications: Actonel, Evista, Fosamax, Miacalcin, Reclast, Boniva, Forteo, HRT (i.e., estrogen/hormone therapy), Protelos, Prolia, Vitamin D, Calcium, other ??? please specify. ANSWER: No. 11. Do you have any of the following medical conditions: Anorexia or bulimia, asthma or emphysema, end stage renal disease, hyperparathyroidism, any seizure disorders, cancer, inflammatory bowel diseases, hysterectomy, other ??? please specify. ANSWER: No. 12. What was your maximum height (inches)? 70. 13. Do you perform weight bearing exercise regularly? Yes. 14. Do you regularly consume dairy products? Yes. 15. Do you drink caffeinated beverages? Yes. TECHNIQUE: Bone mineral density study was performed using the [employer]. FINDINGS: The results of the study expressed as bone mineral density (BMD) are as follows: Lumbar spine L1 to L4: BMD: 0.938 g/cm2. T-score: -1.4. Z-score: -0.9 Neck Left: BMD: 0.673 g/cm2. T-score: -1.9. Z-score: -1.1 Right: BMD: 0.686 g/cm2. T-score: -1.8. Z-score: -1.0 Total Left: BMD: 0.900 g/cm2. T-score: -0.9. Z-score: -0.5 Right: BMD: 0.908 g/cm2. T-score: -0.8. Z-score: -0.5 IMPRESSION: Osteopenia. *Comparison exams done prior to 03/2020 were performed on different unit, [employer]. Galen Momin M.D. Diagnostic Radiologist [email or web address] MILAN/ursula vergara/Dictated by: Galen Momin MD @ 08/10/2024 12:22:00 PM (Electronically Signed)
== END 2024-08-09 13:43 | disposition home or self-care (01) ==
LOC: CT 13:42
PROVIDERS: PCP Internal Medicine; Visit Provider Internal Medicine
DX: K85.90 Acute pancreatitis without necrosis or infection, unspecified (principal); K86.0 Alcohol-induced chronic pancreatitis; F17.200 Nicotine dependence, unspecified, uncomplicated; I72.8 Aneurysm of other specified arteries; M85.89 Other specified disorders of bone density and structure, multiple sites
CPT/HCPCS: 74177; 77080; Q9967

== ENCOUNTER 2025-01-09 12:37 | Emergency (ER) | payer MEDICAID, SELFPAY ==
--- OUTSIDE RECORDS SUMMARY | 2025-01-09 12:39 | XMS_ITS | Clinical Summary ---
Author Organization [facility] Address [address] [place] [address] Care Team Providers Care Spinner Frame Name Role Phone Eleno Vines MD Primary Care Provider Allergies Active Allergy Reactions Criticality Noted Date Comments Morphine Itching Low 06/09/2007 Feels like poison octavio Peanut Other - Describe In Comment Field 11/15/2019 Itching mouth Medications lithium carbonate (LITHOBID) 300 mg Controlled-Rele ase tablet 0 Active valACYclovir (VALTREX) 1 gram tabletIndicatio ns:HSV (herpes simplex virus) infection Take 1 tablet by mouth once daily. 30 tablet 11 1 Active terbinafine HCL (LamISIL) 250 mg tabletIndicatio ns:Tinea pedis of both feet,Dermatophy tosis of nail Take 1 Tablet (250 mg) by mouth once daily. 90 Tablet 1 Active nicotine 21 mg/24 hr (NICODERM; HABITROL) 21 mg/24 hr patchIndication s:Smoking greater than 40 pack years Apply 1 Patch on dry, clean, hairless skin once daily. 30 Patch 11 1 Active cabergoline (DOSTINEX) 0.5 mg tabletIndicatio ns:Delayed ejaculation Take 0.5 mg by mouth every Wednesday and . 14 Tablet 11 2 Active testosterone enanthate (Xyosted) 75 mg/0.5 mL atInIndications :Hypogonadism in male Inject 75 mg subcutaneous once weekly. 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 Gender Identity Not on file Sexual Orientation Not on file Occupation Industry Job Start Date Job End Date Not on file Not on file Not on file Not on file Obstetrics History Last Filed Vital Signs Vital Sign Reading Time Taken Comments Blood Pressure 118/82 10/01/2021 11:18 AM PEDIATRIC GENETICIST Pulse 90 10/01/2021 11:18 AM PEDIATRIC GENETICIST Temperature 36.8 C (98.2 F) 02/26/2016 7:35 PM CDT Respiratory Rate 18 10/09/2020 10:01 AM PEDIATRIC GENETICIST Oxygen Saturation 99% 10/01/2021 11:18 AM PEDIATRIC GENETICIST Inhaled Oxygen Concentration - - Weight 76.2 kg (168 lb) 10/01/2021 11:18 AM PEDIATRIC GENETICIST Height 178 cm (5' 10.08) 02/26/2016 7:35 PM CDT Body Mass Index 24.05 02/26/2016 7:35 PM CDT Plan of Treatment Upcoming Encounters Date Type Department Care Team (Late st Contact Info) Description 01/24/2025 1:00 PM CDT Office Visit [facility] [address] [place] [address] Lane Tim DPM [address] [place] [address] Health Maintenance Due Date Last Done Comments Depression screening for age 12+ 1982 Lipids for age 45-75 2015 02/07/2009 BMI (ht and wt on same day) for age 18+ 02/25/2017 02/26/2016 Pneumococcal series for age 50+ (1 of 1 - PCV) 2020 Zoster (shingles) series for age 50+ (1 of 2) 2020 Colonoscopy through age 75 12/23/2020 12/23/2010 Tetanus booster 08/05/2021 08/05/2011, 07/19, 08/24/2000 COVID-19 vaccine series (2023- season) 2024 Influenza Vaccine (#1) 2024 HIV for age 15-65 Completed 09/20/2008 Hepatitis C screening for age 18-79 Completed 09/20 Tdap Completed 08/05/2011, 08/14/2010 Procedures Procedure Name Priority Date/Time Associated Diagnosis Comments LIPID PANEL Routine 02/07/2009 8:15 AM CDT Lipid Screening EXPOSURE (BBF) RAPID HIV Routine 09/20/2008 3:20 PM PEDIATRIC GENETICIST Accidental Puncture or Laceration During a Procedure EXPOSURE (BBF) ANTI HCV Routine 09/20/2008 3:20 PM PEDIATRIC GENETICIST Accidental Puncture or Laceration During a Procedure from Last 3 Months or Most Recently Relevant to Health Maintenance Results * (ABNORMAL) LIPID PANEL (02/07/2009 8:15 AM CDT) CHOLESTEROL,TOTAL 208(H) 110 - 199 mg/dL [facility] TRIGLYCERIDES 405(H) <150 mg/dL [facility] HDL CHOLESTEROL 38(L) >40 mg/dL [facility] CHOL/HDL RATIO 5.47(H) <4.51 [facility] LDL CHOLESTEROL Invalid LDL when Trig >400. [facility] PATIENT STATUS Fasting [facility] Blood specimen (specimen) BLOOD SPECIMEN / Unknown 02/07/2009 8:15 AM CDT 02/07/2009 8:15 AM CDT us [address] MD CHEMISTRY Final Result [facility] [address] [place] [address] * PATIENT SOURCE RAPID HIV (09/20/2008 3:20 PM PEDIATRIC GENETICIST) SOURCE RAPID HIV SCREEN Non-react dash (Nonreact dash) [facility] Blood specimen (specimen) BLOOD SPECIMEN / Unknown 09/20/2008 3:20 PM PEDIATRIC GENETICIST 09/20/2008 3:13 PM PEDIATRIC GENETICIST us Lee Deal MD SEND OUTS Final Re sult [facility] INTERNAL ZIP [id number] [address] * PATIENT SOURCE ANTI HCV (09/20/2008 3:20 PM PEDIATRIC GENETICIST) SOURCE ANTI HCV Non-react dash [facility] Blood specimen (specimen) BLOOD SPECIMEN / Unknown 09/20/2008 3:20 PM PEDIATRIC GENETICIST 09/20/2008 3:13 PM PEDIATRIC GENETICIST us Lee Deal MD SEND OUTS Final Re sult [facility] INTERNAL ZIP [phone] [address] from Last 3 Months or Most Recently Relevant to Health Maintenance Insurance [facility] Advance Directives * Full Code (Latest Code Status on File) Date Activated Date Inactivated Comments 08/26/2010 10:43 AM 08/27/2010 2:10 PM * Full Code Date Activated Date Inactivated Comments 11/01/2007 8:49 AM 11/02/2007 4:04 PM * Full Code Date Activated Date Inactivated Comments 11/01/2007 6:23 AM 11/01/2007 8:49 AM Care Teams Spinner Frame Relationship Specialty Start Date End Date Eleno Vines MD [address] [place] [id number] PCP - General Internal Medicine 08/11/19
--- OUTSIDE RECORDS SUMMARY | 2025-01-09 12:39 | XMS_ITS | Clinical Summary ---
Author Organization [facility] Address [address] [place] [address] Care Team Providers Care Hospice Clinical Marketer Name Role Phone No Ref-Primary, Physician Primary [...] on file Legal Sex Male 3:48 AM BIN FILLER Gender Identity Not on file Sexual Orientation Not on file Last Filed Vital Signs Vital Sign Reading Time Taken Comments Blood Pressure 138/82 09/07/2023 10:50 AM BIN FILLER Pulse 66 09/07/2023 10:50 AM BIN FILLER Temperature - - Respiratory Rate 15 09/07/2023 10:50 AM BIN FILLER Oxygen Saturation 99% 09/07/2023 10:50 AM BIN FILLER Inhaled Oxygen Concentration - - Weight 70.3 kg (155 lb) 09/07/2023 9:40 AM BIN FILLER Height 177.8 cm (5' 10) 09/07/2023 9:40 AM BIN FILLER Body Mass Index 22.24 09/07/2023 9:40 AM BIN FILLER Plan of Treatment Health Maintenance Due Date Last Done Comments ADVANCE CARE PLANNING 1970 ANNUAL REVIEW OF HM ORDERS 1970 CT COLONOGRAPHY 1970 DIABETES SCREENING 1970 FIT 1970 FLEX SIG 1970 sDNA (Cologuard) 1970 YEARLY PREVENTIVE VISIT 1973 COLONOSCOPY 1980 COLORECTAL CANCER SCREENING 1980 HIV SCREENING 1985 HEPATITIS C SCREENING 1988 HEPATITIS B IMMUNIZATION (1 of 3 - 19+ 3-dose series) 1989 Pneumococcal Vaccine: 50+ Years (1 of 2 - PCV) 1989 LIPID 2010 LUNG CANCER SCREENING 2020 ZOSTER IMMUNIZATION (1 of 2) 2020 COVID-19 Vaccine (1 - 2023- season) 2024 INFLUENZA VACCINE (#1) 2024 PHQ-2 (once per calendar year) 2024 DTAP/TDAP/TD IMMUNIZATION (5 - Td or Tdap) 03/28/2032 03/28/2022, 08/05/2011, 08/14/2010, Additional history exists HPV IMMUNIZATION Aged Out No longer e ligible based on patient's age to complete this topic MENINGITIS IMMUNIZATION Aged Out No l onger eligible based on patient's age to complete this topic Insurance [facility] Care Teams Hospice Clinical Marketer Relationship Specialty Start Date End Date No Ref-Primary, Physician PCP - General 08/27/23
--- OUTSIDE RECORDS SUMMARY | 2025-01-09 12:39 | XMS_ITS | Clinical Summary ---
Author Organization [facility] Address [address] [place] [address] Care Team Providers Care Animal Trapper Name Role Phone Unavailable Primary Care Provider Unavailabl e Source Comments Patient records contain information from all sites at [facility]. For routine questions regarding patient records, call [phone] during business hours, M-F 8:00 AM - 5:00 PM Central Time. Record requests for emergency care only can be directed to [phone] at any time.[facility] Allergies Active Allergy Reactions Criticality Noted Date [...] Dependence Unspecified 12/13/2007 Affective Disorder 06/15/2007 Immunizations Immunization Administration Dates Next Due DTaP (Infanrix, Tripedia) 03/12/1976 Polio, Unspecified 03/12/1976 Tdap 03/28/2022,08/05/2011,08/14/2010 Social History Tobacco Use Types Packs/Day Years Used Date Smoking Tobacco: Every Day Cigarettes Tobacco Cessation:Ready to Q uit: Not Asked; Counseling Given: Not Answered Alcohol Use Standard Drinks/Week Comments Yes 0 (1 standard drink = 0.6 oz pur e alcohol) [facility] Utilities Answer Date Recorded In the past 12 months has e [employer], gas, oil, or water [employer] threatened to shut off services in your [...] your living situation today? 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 Gender Identity Not on file Sexual Orientation Not on file Last Filed Vital Signs Vital Sign Reading Time Taken Comments Blood Pressure 112/71 01/06/2024 11:00 AM CDT Pulse 93 01/06/2024 11:00 AM CDT Temperature 37.1 C (98.8 F) 01/06/2024 11:00 AM CDT Respiratory Rate 16 01/06/2024 11:00 AM CDT [...] C Screening 1970 Tobacco Cessation counseling 1970 IPV Vaccines (2 of 3 - 4-dos e series) 04/09/1976 03/12/1976 Hepatitis B Vaccines (1 of 3 - 19+ 3-dose series) 1989 Pneumococcal vaccine (50+ ye ars) (1 of 2 - PCV) 1989 Zoster Vaccines (1 of 2) 2020 COVID-19 Vaccine (1 - 2023-2 5 season) 2024 Influenza Vaccine (#1) 2024 Depression Screening (Annual PHQ-2) 10/18/2024 Fasting Glucose for Diabetes Screening 01/05/2027 01/06/2024, 01/05/2024, 01/04/2024, Additional history exists Lipid (Cholesterol) Screening 01/02/2029 01/03/2024 DTaP,Tdap,and Td Vaccines (5 - Td or Tdap) 03/28/2032 03/28/2022, 08/05/2011, 08/14/2010, Additional history exists Medical Devices Implanted Type Area Cattle Knocker Device Identifier Shelf Expiration Date Model / Serial / Lot Coil Azur Cx Det 018 4x13 - [id number] Implanted:Qty : 1 on 01/04/2024 by Olivier Sosa M.D. at [facility] Emb[employer]ization [employer] 08/17/2028 [id number] / / [id number] Coil Azur Cx Det 018 2x4 - [id number] Implanted:Qty : 1 on 01/04/2024 by Olivier Sosa M.D. at [facility] [employer] 12/15/2026 [id number] / / [id number] Coil Azur Cx Det 018 2x4 - [id number] Implanted:Qty : 1 on 01/04/2024 by Olivier Sosa M.D. at [facility] [employer]ization [employer] 08/17/2028 [id number] / / [id number] Coil Azur Cx Det 018 4x13 - [id number] Implanted:Qty : 1 on 01/04/2024 by Olivier Sosa M.D. at [facility] [employer] 08/17/2027 [id number] / / [id number] Azur Hydropack 18 5cm Implanted:Qty : 1 on 01/04/2024 by Olivier Sosa M.D. at [facility] [employer] 07/17/2028 [id number] / / [id number] Azur Hydropack 18 5cm Implanted:Qty : 1 on 01/04/2024 by Olivier Sosa M.D. at [facility] [employer] 07/17/2028 [id number] / / [id number] Azur Hydropack 18 10cm Implanted:Qty : 1 on 01/04/2024 by Olivier Sosa M.D. at [facility] [employer] 09/16/2028 [id number] / / [id number] Azur Hydropack 18 20cm Implanted:Qty : 1 on 01/04/2024 by Olivier Sosa M.D. at [facility] [employer] 07/17/2028 [id number] / / [id number] Procedures Procedure Name Priority Date/Time Associated Diagnosis Comments BASIC METABOLIC PANEL, S/P Routine 01/06/2024 5:07 AM CDT LIPID PANEL, S STAT 01/03/2024 3:03 PM CDT from Last 3 Months or Most Recently Relevant to Health Maintenance Results * Basic Metabolic Panel (01/06/2024 5:07 AM CDT) [facility] Potassium, S 4.1 3.6 - 5.2 mmol/L [...] M.D., M.P.H. LAB BLOOD ADD-ON Final Result [facility] [address] [place] [address], [facility] [address] [place] [address] * Lipid Panel (01/03/2024 3:03 PM CDT) [...] Ph.D. LAB BLOOD ADD-ON Fi nal Result [facility] [address] [place] [address], [facility] [address] [place] [address] from Last 3 Months or Most Recently Relevant to Health Maintenance Insurance [facility] Advance Directives For more information, please contact: [phone] * Full Code (Latest Code Status on File) Date Activated Date Inactivated Comments 01/03/2024 2:35 PM 01/06/2024 2:01 PM Question Answer Comments Full Code: Discussed
[2025-01-09 12:42] VITALS: BP 158/101; PULSE 96; RESP 20; TEMP 36.4; O2SAT 96; BMI 22.8
--- NOTE | 2025-01-09 13:06 | ED.GENADULT ---
HPI - General Adult General Chief complaint: Chest Pain Stated complaint: Right Shoulder pain into chest Time Seen by Provider: 01/09/25 12:39 History of Present Illness HPI narrative: This 54-year-old male comes in reporting right shoulder pain that he woke up with this morning. He does not report any specific injury event or strenuous activity. He states that he did assist in lifting a washing machine a couple days ago but did not do most of the work. He has a history of couple surgeries to his shoulder including rotator cuff repair. He does take tramadol on occasion and took 1 tablet this morning without much relief. He states that the pain is mostly located in his shoulder with some pain radiating toward his neck on the right side and also partly down his arm at times. Related Data Previous Rx's ?Medication ?Instructions ?Recorded tramadol 50 mg tablet 50 mg PO TID PRN pain #60 tabs 09/19/24 cyclobenzaprine 10 mg tablet 10 mg PO TID #15 tabs 01/09/25 ketorolac 10 mg tablet 10 mg PO TID 5 days #15 tabs 01/09/25 methylprednisolone 4 mg tablets in See Rx Instructions PO .COMPLEX 01/09/25 a dose pack (Medrol (Anoop)) #21 ea tramadol 50 mg tablet 50 mg PO Q6H PRN pain #15 tabs 01/09/25 Allergies Allergy/AdvReac Type Severity Reaction Status Date / Time [place] nut Allergy Intermediate swelling, Verified 01/09/25 12:46 itching morphine Allergy Intermediate nausea, Verified 01/09/25 12:46 hives Review of Systems Status of ROS: Reports: 10 or more systems reviewed and unremarkable except as noted in History and below Narrative: Constitutional: No fevers, no weight gain or loss. Eyes: No discharge. No vision changes. HENT: No congestion, no sore throat, no ear pain. Cardiovascular: No chest pain, no palpitations. Respiratory: No shortness of breath, no wheezes, no cough. Gastrointestinal: No abdominal pain, no vomiting, no diarrhea. Genitourinary: No dysuria, no hematuria. Musculoskeletal: Right shoulder pain as described above. Skin: No rashes, no pruritis. Neurological: No dizziness, weakness, sensory change, speech change. Endo/Heme/Allergies: No bruising or bleeding. No polydipsia. Pysch: no suicidality, no anxiety, no insomnia. All other systems reviewed and are negative. [facility] Medical History (Updated 01/09/25 @ 13:56 by Casimiro Hyatt MD) Pancreatitis ?K85.90 - Acute pancreatitis without necrosis or infection, unspecified (ICD-10) Lung mass ?R91.8 - Other nonspecific abnormal finding of lung field (ICD-10) Pancreatic mass ?K86.89 - Other specified diseases of pancreas (ICD-10) Weight loss ?R63.4 - Abnormal weight loss (ICD-10) Hyperlipidemia ?E78.5 - Hyperlipidemia, unspecified (ICD-10) Lipoma of back ?D17.1 - Benign lipomatous neoplasm of skin and subcutaneous tissue of trunk (ICD-10) Dermatitis ?L30.9 - Dermatitis, unspecified (ICD-10) Surgical History (Updated 03/27/23 @ 17:25 by Tiffanie Howell MD) H/O knee surgery ?Z98.890 - Other specified postprocedural states (ICD-10) History of colonoscopy ?Z98.890 - Other specified postprocedural states (ICD-10) History of shoulder surgery ?Z98.890 - Other specified postprocedural states (ICD-10) History of dental surgery ?Z92.89 - Personal history of other medical treatment (ICD-10) Previous back surgery ?Z98.890 - Other specified postprocedural states (ICD-10) Social History (Updated 04/12/23 @ 16:19 by Doretha Rushing ~ [facility]) What is your current living situation?: I presently have a place to live Problems where you live: no known problems In the past 12 months, utilities in danger of being shut off: no In the past 12 mos, have been you worried that your food would run out before you had money to buy more?: never true In the past 12 mos, the food you bought just didn't last and you didn't have money to buy more?: never true Smoking Status: Current every day smoker How often do you have a drink containing alcohol: 4 or more times a week How many standard drinks containing alcohol do you have on a typical day: 1 or 2 How often do you have six or more drinks on one occasion: Less than monthly AUDIT-C Alcohol total score: 5 Non-prescribed substance use: denies use How often does anyone, including family, friends and others, physically hurt you: How often does anyone, including family, friends and others, insult or talk down to you: How often does anyone, including family, friends and others, threaten you with harm: How often does anyone, including family, friends and others, scream or curse at you: service: No Exam Narrative: Exam Narrative: Constitutional: Well-developed, well-nourished, no acute distress. HEENT: Normocephalic, atraumatic. Neck: Normal range of motion. Nontender. Supple. Heart: Regular. No murmurs. Normal rate. Intact distal pulses. Lungs: Clear to auscultation. No chest discomfort. No wheezes, rhonchi, or rales. Abdomen: Normal bowel sounds. Nontender. No rebound tenderness. Genitalia: Deferred. Back: No midline tenderness. Normal range of motion. Extremities: No sign of injury. No anterior fullness of the right shoulder. Range of motion is preserved but is painful. Spurling's test is negative but the patient does report report some pain radiating down into his little finger at times. Skin: Intact. No rash. Warm. No erythema or pallor. Neurologic: No altered sensation. No weakness. Alert and oriented. Psychiatric: No suicidality. No anxiety or depression. No insomnia. Nursing notes and vitals signs are reviewed. Const: Vital Signs, click to edit/add: Vital Signs - 24 hr 01/09/25 12:42 Temperature 97.5 F L Pulse Rate [Pulse Oximeter] 96 Respiratory Rate 20 Blood Pressure [Ri ght Upper Arm] 158/101 H Pulse Oximetry 96 Oxygen Delivery Me thod Room Air Course Vital Signs Vital signs: Initial Vital Signs Temperature 97.5 F L 01/09/25 12:42 Temperature Source Temporal Artery Scan 01/09/25 12:42 Pulse Rate 96 01/09/25 12:42 Respiratory Rate 20 01/09/25 12:42 Blood Pressure 158/101 H 01/09/25 12:42 Blood Pressure Mean 120 H 01/09/25 12:42 Blood Pressure Position Sitting 01/09/25 12:42 Pulse Oximetry 96 01/09/25 12:42 Oxygen Delivery Method Room Air 01/09/25 12:42 Vital Signs Temperature 97.5 F L 01/09/25 12:42 Pulse Rate 96 01/09/25 12:42 Respiratory Rate 20 01/09/25 12:42 Blood Pressure 158/101 H 01/09/25 12:42 Pulse Oximetry 96 01/09/25 12:42 Oxygen Delivery Method Room Air 01/09/25 12:42 Temperature 97.5 F L 01/09/25 12:42 Pulse Rate 96 01/09/25 12:42 Respiratory Rate 20 01/09/25 12:42 Blood Pressure 158/101 H 01/09/25 12:42 Pulse Oximetry 96 01/09/25 12:42 Oxygen Delivery Method Room Air 01/09/25 12:42 Medications Administered Medications: Discontinued Medications Generic Name Dose Route Start Last Admin Trade Name Andrew PRN Reason Stop Dose Admin Ketorolac Tromethamine 30 mg 01/09/25 13:05 01/09/25 13:19 Ketorolac 30 Mg/Ml Inj IM 01/09/25 13:06 30 mg ONCE ONE Administration Medical Decision Making [facility] Narrative Medical decision making narrative: X-ray images of the patient's right shoulder returned with no acute findings. The patient did receive an intramuscular injection of Toradol 30 mg which has not yet provided much relief. With the pain radiating down his right arm at times there is suspicion for a cervical radiculopathy. He also has history of a couple shoulder surgeries in that right shoulder. I advised the patient to follow-up with orthopedic clinic for ongoing diagnosis and management. He did receive prescriptions for Toradol, some tablets of tramadol, Flexeril, and Medrol Dosepak. Imaging Data XR R Shoulder: Radiologist's impression: Bones: No evidence of acute fracture. Sclerosis at the level of the margin of the greater tuberosity. Joint spaces: Attachment hooks at the glenoid consistent with prior labral surgery. No dislocation. Soft tissues: Enthesopathic calcification greater tuberosity. ECG Data Attestation: I personally reviewed and interpreted this ECG as follows: Interpretation: Normal sinus rhythm. Rate is 67 beats per minute. There are no ST or T-wave abnormalities. Discharge Plan Discharge Clinical Impression: Right shoulder pain Patient Disposition: Home, Self-Care Condition: Stable Additional Instructions: Take medications as prescribed and needed. Follow-up with orthopedic clinic for ongoing diagnosis and management. Call [phone] for appointment. Return if worsening. Prescriptions: New cyclobenzaprine 10 mg tablet 10 mg PO TID Qty: 15 0RF tramadol 50 mg tablet 50 mg PO Q6H PRN (Reason: pain) Qty: 15 0RF ketorolac 10 mg tablet 10 mg PO TID 5 Days Qty: 15 0RF methylprednisolone [Medrol (Anoop)] 4 mg tablets,dose pack See Rx Instructions .ROUTE .COMPLEX Qty: 21 0RF Rx Instructions: orally per package directions No Action tramadol 50 mg tablet 50 mg PO TID PRN (Reason: pain) Qty: 60 0RF Follow Up/Referrals: Eleno Vines MD [Primary Care Provider] - Stand Alone Forms: [employer] Info Instructions
[2025-01-09] MEDS: KETOROLAC 30 MG/ML inj IM (13:19)
--- OUTSIDE RECORDS SUMMARY | 2025-01-09 13:42 | XMS_ITS | Clinical Summary ---
Author Organization [facility] Address [address] [place] [address] Care Team Providers Care Floor Finisher Name Role Phone Unavailable Primary Care Provider Unavailabl e Source Comments Patient records contain information from all sites at [facility]. For routine questions regarding patient records, call [phone] during business hours, M-F 8:00 AM - 5:00 PM Central Time. Record requests for emergency care only can be directed to [phone] at any time.[facility] Allergies Active Allergy Reactions Criticality Noted [...] drink = 0.6 oz pur e alcohol) [facility] Utilities Answer Date Recorded In the past 12 months has e [employer], gas, oil, or water [employer] threatened to shut off services in your [...] your living situation today? 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 at [facility] Embolization Coil [employer] 08/17/2028 [id number] / / [id number] Coil Azur Cx Det 018 2x4 - [id number] Implanted:Qty : 1 on 01/04/2024 by Olivier Sosa M.D. at [facility] Embolization Coil [employer] 12/15/2026 [id number] / / [id number] Coil Azur Cx Det 018 2x4 - [id number] Implanted:Qty : 1 on 01/04/2024 by Olivier Sosa M.D. at [facility] Embolization Coil [employer] 08/17/2028 [id number] / / [id number] Coil Azur Cx Det 018 4x13 - [id number] Implanted:Qty : 1 on 01/04/2024 by Olivier Sosa M.D. at [facility] Embolization Coil [employer] 08/17/2027 [id number] / / [id number] Azur Hydropack 18 5cm Implanted:Qty : 1 on 01/04/2024 by Olivier Sosa M.D. at [facility] Embolization Coil [employer] 07/17/2028 [id number] / / [id number] Azur Hydropack 18 5cm Implanted:Qty : 1 on 01/04/2024 by Olivier Sosa M.D. at [facility] Embolization Coil [employer] 07/17/2028 [id number] / / [id number] Azur Hydropack 18 10cm Implanted:Qty : 1 on 01/04/2024 by Olivier Sosa M.D. at [facility] Embolization Coil [employer] 09/16/2028 [id number] / / [id number] Azur Hydropack 18 20cm Implanted:Qty : 1 on 01/04/2024 by Olivier Sosa M.D. at [facility] Embolization Coil [employer] 07/17/2028 [id number] / / [id number] Procedures Procedure Name Priority Date/Time Associated Diagnosis Comments BASIC METABOLIC PANEL, S/P Routine 01/06/2024 5:07 AM CDT LIPID PANEL, S STAT 01/03/2024 3:03 PM CDT from Last 3 Months or Most Recently Relevant to Health Maintenance Results * Basic Metabolic Panel (01/06/2024 5:07 AM CDT) [facility] Potassium, S 4.1 3.6 - 5.2 mmol/L [...] M.D., M.P.H. LAB BLOOD ADD-ON Final Result [facility] [address] [place] [address], [facility] [address] [place] [address] * Lipid Panel (01/03/2024 3:03 PM CDT) [...] Ph.D. LAB BLOOD ADD-ON Fi nal Result [facility] [address] [place] [address], [facility] [address] [place] [address] from Last 3 Months or Most Recently Relevant to Health Maintenance Insurance [facility] Advance Directives For more information, please contact: [phone] * Full Code (Latest Code Status on File) Date Activated Date Inactivated Comments 01/03/2024 2:35 PM 01/06/2024 2:01 PM Question Answer Comments Full Code: Discussed
--- OUTSIDE RECORDS SUMMARY | 2025-01-09 13:42 | XMS_ITS | Clinical Summary ---
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 Gender Identity Not on file Sexual Orientation Not on file Occupation Industry Job Start Date Job End Date Not on file Not on file Not on file Not on file Obstetrics History Last Filed Vital Signs Vital Sign Reading Time Taken Comments Blood Pressure 118/82 10/01/2021 11:18 AM OPERATIONS INTELLIGENCE SUPERINTENDENT Pulse 90 10/01/2021 11:18 AM OPERATIONS INTELLIGENCE SUPERINTENDENT Temperature 36.8 C (98.2 F) 02/26/2016 7:35 PM CDT Respiratory Rate 18 10/09/2020 10:01 AM OPERATIONS INTELLIGENCE SUPERINTENDENT Oxygen Saturation 99% 10/01/2021 11:18 AM OPERATIONS INTELLIGENCE SUPERINTENDENT Inhaled Oxygen Concentration - - Weight 76.2 kg (168 lb) 10/01/2021 11:18 AM OPERATIONS INTELLIGENCE SUPERINTENDENT Height 178 cm (5' 10.08) 02/26/2016 7:35 PM CDT Body Mass Index 24.05 02/26/2016 7:35 PM CDT Plan of Treatment Upcoming Encounters Date Type Department Care Team (Late st Contact Info) Description 01/24/2025 1:00 PM CDT Office Visit [facility] [address] [place] [address] Lane Tim DPM [address] [place] [address] Health Maintenance Due Date Last Done Comments [...] (BBF) RAPID HIV Routine 09/20/2008 3:20 PM OPERATIONS INTELLIGENCE SUPERINTENDENT Accidental Puncture or Laceration During a Procedure EXPOSURE (BBF) ANTI HCV Routine 09/20/2008 3:20 PM OPERATIONS INTELLIGENCE SUPERINTENDENT Accidental Puncture or Laceration During a Procedure from Last 3 Months or Most Recently Relevant to Health Maintenance Results * (ABNORMAL) LIPID PANEL (02/07/2009 8:15 AM CDT) CHOLESTEROL,TOTAL 208(H) 110 - 199 mg/dL [facility] TRIGLYCERIDES 405(H) <150 mg/dL [facility] HDL CHOLESTEROL 38(L) >40 mg/dL [facility] CHOL/HDL RATIO 5.47(H) <4.51 [facility] LDL CHOLESTEROL Invalid LDL when Trig >400. [facility] PATIENT STATUS Fasting [facility] Blood specimen (specimen) BLOOD SPECIMEN / Unknown 02/07/2009 8:15 AM CDT 02/07/2009 8:15 AM CDT us Brandon Lane MD CHEMISTRY Final Result [facility] [address] [place] [address] * PATIENT SOURCE RAPID HIV (09/20/2008 3:20 PM OPERATIONS INTELLIGENCE SUPERINTENDENT) SOURCE RAPID HIV SCREEN Non-react dash (Nonreact dash) [facility] Blood specimen (specimen) BLOOD SPECIMEN / Unknown 09/20/2008 3:20 PM OPERATIONS INTELLIGENCE SUPERINTENDENT 09/20/2008 3:13 PM OPERATIONS INTELLIGENCE SUPERINTENDENT us Lee Deal MD SEND OUTS Final Re sult [facility] INTERNAL ZIP [id number] [address] * PATIENT SOURCE ANTI HCV (09/20/2008 3:20 PM OPERATIONS INTELLIGENCE SUPERINTENDENT) SOURCE ANTI HCV Non-react dash [facility] Blood specimen (specimen) BLOOD SPECIMEN / Unknown 09/20/2008 3:20 PM OPERATIONS INTELLIGENCE SUPERINTENDENT 09/20/2008 3:13 PM OPERATIONS INTELLIGENCE SUPERINTENDENT us Lee Deal MD SEND OUTS Final Re sult [facility] INTERNAL ZIP [phone] [address] from Last 3 Months or Most Recently Relevant to Health Maintenance Insurance [facility] Advance Directives * Full Code (Latest Code Status on File) Date Activated Date Inactivated Comments 08/26/2010 10:43 AM 08/27/2010 2:10 PM * Full Code Date Activated Date Inactivated Comments 11/01/2007 8:49 AM 11/02/2007 4:04 PM * Full Code Date Activated Date Inactivated Comments 11/01/2007 6:23 AM 11/01/2007 8:49 AM Care Teams Horticultural Therapist Relationship Specialty Start Date End Date Eleno Vines MD [address] [place] [id number] PCP - General Internal Medicine 08/11/19
== END 2025-01-09 14:26 | disposition home or self-care (01) ==
PROVIDERS: Emergency Provider Emergency Medicine Emergency Medical Services; PCP Internal Medicine
DX: M25.511 Pain in right shoulder (principal)
CPT/HCPCS: 73030; 96372; 99283; 99284; J1885

== ENCOUNTER 2025-05-29 05:38 | Outpatient (CLI) | payer MEDICAID, SELFPAY | END 2025-05-29 05:39 | disposition home or self-care (01) | LOC: AMB 06-28 17:31 | PROVIDERS: PCP Internal Medicine; Visit Provider Family Medicine | DX: R07.89 Other chest pain (principal) | CPT/HCPCS: A0425; A0427 ==

== ENCOUNTER 2025-09-11 11:12 | Emergency (ER) | payer MEDICAID, SELFPAY ==
--- OUTSIDE RECORDS SUMMARY | 2025-07-29 12:47 | XMS_ITS | Encounter Summary ---
Author Organization [facility] Address [address] [place] [address] Care Team Providers Care Vocational Evaluator Name Role Phone Unavailable Primary Care Provider Unavailabl e Reason for Referral * MRI/CAT/PET Scan (Routine) - Closed Specialty Diagnoses / Procedures Referred By Rodolfo mcgrath Referred To Contact Radiology Diagnoses Pseudocyst Pancreas Pancreatitis Acute (HCC) Procedures CT Abdomen Pelvis with IV Contrast Jackeline Dao M.B.B.S., M.S. [address] [place] [phone] Phone: tel: fax: [facility] Referral ID Status Reason Start Date Expiration Date Visits Re quested Visits Authorized [id number] Closed 07/12/2025 10/12/2026 1 1 Reason for Visit * MRI/CAT/PET Scan (Routine) - Closed Specialty Diagnoses / Procedures Referred By Rodolfo mcgrath Referred To Contact Radiology Diagnoses Pseudocyst Pancreas Pancreatitis Acute (HCC) Procedures CT Abdomen Pelvis with IV Contrast Jackeline Dao M.B.B.S., M.S. [address] [place] [phone] Phone: tel: fax: [facility] Referral ID Status Reason Start Date Expiration Date Visits Re quested Visits Authorized [id number] Closed 07/12/2025 10/12/2026 1 1 Encounter Details Date Type Department Care Team (Latest Contact Info) Description 07/29/2025 1:47 PM CDT - 07/29/2025 11:59 PM CDT Hospital Encounter Department of Radiology, [facility], in [place], [place] [address] [place] [address] Jackeline Dao M.B.B.S., M.S. [address] [place] [address] Pseudocyst Pancreas; Pancreatitis Acute (HCC) [K85.90] Discharge Disposition: Home or Self Care Social History Tobacco Use Types Packs/Day Years Used Date Smoking Tobacco: Every Day Cigarettes 1 44.5 Started: 03/18/1981 Smokeless Tobacco: Never Alcohol Use Standard Drinks/Week Comments Not Currently 0 (1 standard drink = 0.6 oz pure alcohol) Used to drink five to 6 drinks a week Humiliation, Afraid, Rape, and Kick questionnair e [...] the money to buy more. Never true 07/04/20 25 Within the past 12 months, t he food you bought just didn't last and you didn't have money to get more. Never true 07/04/2025 PRAPARE - Transportation Answer Date Re corded In the past 12 months, has l ack of transportation kept you from medical appointments or from getting medications? No 06/18 In the past 12 months, has l ack of transportation kept you from meetings, work, or from getting things needed for daily living? No 07/04/2025 [facility] Utilities Answer Date Recorded In the past 12 months has th [email or web address] electric, gas, oil, or water company threatened to shut off services in your home? No 07/04/2025 Housing Stability Answer Date Recorded What is your living situation today? 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 01/06/2024 multivitamin-iron -FA (CENTRUM COMPLETE) 18-400 mg-mcg per tablet Take 1 tablet by mouth daily. 01/06/2024 omeprazole (PriLOSEC) [address] capsule Take 20 mg by mouth daily before morning meal. oxyCODONE (ROXICODONE) 5 mg immediate release tabletIndications :Acute Pain Take 1 tablet (5 mg total) by mouth every 6 (six) hours as needed for severe pain or score 7-10 of 10 Indication: Acute Pain. 5 tablet 01/06/2024 pantoprazole (Protonix) 40 mg EC tablet Take 40 mg by mouth daily before morning meal. pantoprazole (Protonix) 40 mg EC tablet Take 40 mg by mouth daily. 05/29/2025 rosuvastatin (CRESTOR) 20 mg tablet Take 1 tablet (20 mg total) by mouth at bedtime. 90 tablet 3 01/06/2024 thiamine (VITAMIN B1) 100 mg tablet Take 1 tablet (100 mg total) by mouth daily. 5 tablet 01/06/2024 traMADoL (Ultram) 50 mg tablet Take 1 tablet by mouth every 8 (eight) hours as needed for pain. 06/08/2025 traMADoL (Ultram) 50 mg tablet Take 50 mg by mouth. 01/09/2025 documented as of this encounter Plan of Treatment Upcoming Encounters Date Type Department Care Team (Latest Contact Info) Description 09/21/2025 12:15 PM RANCH HAND SUPERVISOR Appointment Division of Gastroenterology in [place], [place] [address] [place] [phone] Jackeline Dao M.B.B.S., M.S. [address] [place] [phone] Ronen Garcia M.D. [address] [place] [phone] Discharge Disposition: Home or Self Care 10/22/2025 7:00 AM RANCH HAND SUPERVISOR Appointment Department of Radiology, [facility], in [address] [phone] Conchita Ontiveros M.D. [address] [place] [phone] 10/23/2025 1:40 PM RANCH HAND SUPERVISOR Virtual Visit Division of Gastroenterology in [address] [phone] Conchita Ontiveros M.D. 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 There is a thicken irregular wall that is indeterminate for infection - no internal gas. Please see the discussion in the findings for additional details. Notably, the collection/cyst involves a portion of the splenic parenchyma and displaces the residual spleen posteriorly. A linear area of low density within the residual spleen could represent infarct or a laceration due to mass effect from the collection. Additionally, embolization coils are displaced by the collection and some have uncoiled, one of which has migrated into the parenchyma of the pancreatic tail. Narrative 07/29/2025 5:04 PM CDT EXAM: CT ABDOMEN PELVIS WITH IV CONTRAST COMPARISON: CT abdomen/pelvis 05/29/2025, 01/04/2024, and 01/03/2024. Splenic artery embolization 01/04/2024. FINDINGS: Increased size of a 11.1 x 10.8 x 10.5 cm simple fluid density collection/pseudocyst, enlarged from 5.6 x 5.2 x 5.4 cm on 05/29/2025. Thickened wall with mild adjacent stranding. No internal gas. The inferior aspect of the collection is adjacent to the distal pancreatic tail, the pancreatic tail itself obscured by streak artifact from embolization coils. The collection involves the spleen with the splenic hilum distorted and not well delineated. There is mass effect upon the spleen with displacement of residual enhancing splenic parenchyma posteriorly (for example 3/104). A linear hypodensity through the splenic parenchyma (4/88) could represent infarct or laceration from the mass effect. The splenic artery tapers along the posterior aspect of the collection (3/124). The splenic artery embolization coils are seen more inferiorly along the periphery of the collection. Some of the embolization coils are within the anterior aspect of the collection (3/122) and an unraveled coil has migrated into the parenchyma of the pancreatic tail (series 4, images 141-155), not significantly changed since 05/29/2025. The configuration of the coils has changed since the time of placement, which is seen best on the piper helper image for this exam (series 1, image 1) compared to series 13, frame 5 on the embolization exam 01/04/2024. The distal splenic vein is compressed/attenuated. Mild short gastric collaterals. The remainder of the more proximal pancreas is unremarkable. Normal kidneys. Mild compression upon the proximal stomach by the collection. Appendectomy. Diverticulosis. Procedure Note Ronald Alonso M.D. - 07/29/2025 EXAM: CT ABDOMEN PELVIS WITH IV CONTRAST COMPARISON: CT abdomen/pelvis 05/29/2025, 01/04/2024, and 01/03/2024.Splenic artery embolization 01/04/2024. FINDINGS: Increased size of a 11.1 x 10.8 x 10.5 cm simple fluid densitycollection/pseudocyst, enlarged from 5.6 x 5.2 x 5.4 cm on 05/29/2025.Thickened wall with mild adjacent stranding. No internal gas. The inferioraspect of the collection is adjacent to the distal pancreatic tail, thepancreatic tail itself obscured by streak artifact from embolizationcoils. The collection involves the spleen with the splenic hilum distortedand not well delineated. There is mass effect upon the spleen withdisplacement of residual enhancing splenic parenchyma posteriorly (forexample 3/104). A linear hypodensity through the splenic parenchyma (4/88)could represent infarct or laceration from the mass effect. The splenic artery tapers along the posterior aspect of the collection(3/124). The splenic artery embolization coils are seen more inferiorlyalong the periphery of the collection. Some of the embolization coils arewithin the anterior aspect of the collection (3/122) and an unraveled coilhas migrated into the parenchyma of the pancreatic tail (series 4, [id number]), not significantly changed since 05/29/2025. The configuration ofthe coils has changed since the time of placement, which is seen best onthe piper helper image for this exam (series 1, image 1) compared to series 13,frame 5 on the embolization exam 01/04/2024. The distal splenic vein is compressed/attenuated. Mild short gastriccollaterals. The remainder of the more proximal pancreas is unremarkable.Normal kidneys. Mild compression upon the proximal stomach by thecollection. Appendectomy. Diverticulosis. IMPRESSION: Increased size of the left upper quadrant fluid collection/pseudocystsince 05/29/2025, currently measuring 11.1 x 10.8 x 10.5 cm. There is athicken irregular wall that is indeterminate for infection - no internalgas. Please see the discussion in the findings for additional details.Notably, the collection/cyst involves a portion of the splenic parenchymaand displaces the residual spleen posteriorly. A linear area of lowdensity within the residual spleen could represent infarct or a lacerationdue to mass effect from the collection. Additionally, embolization coilsare displaced by the collection and some have uncoiled, one of which hasmigrated into the parenchyma of the pancreatic tail. Jackeline Grimaldo, M.S. 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] documented in this encounter Administered Medications Inactive Administered Medications - up to 3 most recent administrations Medication Order MAR Action Action Date Dose Rate Site iohexoL 300 mg iodine/mL solution 1-200 mL (Omnipaque) 1-200 mL, intravenous, Once in imaging, contrast, Starting on [place] 07/29/25 at 1403, For 1 dose, Imaging Protocol Orders, Dose per Radiant Medication Guidelines Given 07/29/2025 2:05 PM CDT 140 mL sodium chloride (PF) 0.9 % injection 1-100 mL 1-100 mL, intravenous, Once, On 07/29/25 at 1430, For 1 dose, Imaging Protocol Orders, Dose per Radiant Medication Guidelines Given 07/29/2025 2:05 PM CDT 50 mL documented in this encounter
--- OUTSIDE RECORDS SUMMARY | 2025-07-30 08:20 | XMS_ITS | Encounter Summary ---
Author Organization [facility] Address [address] [place] [id number] Care Team Providers Care Glue Spreading Machine Operator Name Role Phone Unavailable Primary Care Provider Unavailabl e Reason for Referral * Outpatient (Routine) - Authorized Specialty Diagnoses / Procedures Referred By Contact Referred To Contact Gastroenterology and Hepatology Conchita Ontiveros M.D. [address] [place] [phone] Phone: tel: fax: [facility] Referral ID Status Reason Start Date Expiration Date V isits Requested Visits Authorized [id number] Authorized 07/30/2025 01/29/2027 1 1 Scheduling Instructions Schedule 1-[address] scan in 1 month * MRI/CAT/PET Scan (Routine) - Authorized Specialty Diagnoses / Procedures Referred By Contac t Referred To Contact Radiology Diagnoses Pseudocyst Pancreas Procedures CT Abdomen Pelvis with IV Contrast Conchita Ontiveros M.D. [address] [place] [address] Phone: tel: fax: [facility] Referral ID Status Reason Start Date Expiration Date V isits Requested Visits Authorized [id number] Authorized 07/30/2025 10/30/2026 1 1 Reason for Visit * Appointment Request (Routine) - Closed Specialty Diagnoses / Procedures Referred By Contact Referred To Contact Gastroenterology and Hepatology Diagnoses Pseudocyst Pancreas Natanael Cummings M.D. [address] [place] [address] Phone: tel: fax: Referral ID Status Reason Start Date Expiration Date Visits Re quested Visits Authorized [id number] Closed 06/21/2025 09/21/2026 1 1 Encounter Details Date Type Department Care Team (Latest Contact Info) Description 07/30/2025 9:20 AM CDT Comprehensive Visit Division of Gastroenterology in [place], [place] [address] [place] [phone] Conchita Ontiveros M.D. [address] [place] [address] Pseudocyst Pancreas (Primary Dx); Nicotine Dependence; Pancreatitis Chronic (HCC); Pancreatitis Acute (HCC) Social History Tobacco Use Types Packs/Day Years [...] things needed for daily living? No 07/04/2025 [facility] Utilities Answer Date Recorded In the past 12 months has th e electric, gas, oil, or water company threatened to shut off services in your home? No 07/04/2025 Housing Stability Answer Date Recorded What is your living situation today? I have a [facility] place to live 07/04/2025 Sex and Gender Information Value Date Recorded Sex Assigned at Male 07/04/2025 12:26 PM CDT Legal Sex Male 9:23 AM LITHOGRAPHIC PHOTOGRAPHER Gender Identity Male 07/04/2025 12:26 PM CDT Sexual Orientation Straight 07/04/2025 12 :26 PM CDT documented as of this encounter Last Filed Vital Signs Vital Sign Reading Time Taken Comments Blood Pressure 106/69 07/30/2025 9:12 AM CDT Pulse 75 07/30/2025 9:12 AM CDT Temperature - - Respiratory Rate - - Oxygen Saturation - - Inhaled Oxygen Concentration - - Weight 68 kg (149 lb 14.6 oz) 07/30/2025 9:12 AM CDT Height 179 cm (5' 10.47) 07/30/2025 9:12 AM CDT Body Mass Index 21.22 07/30/2025 9:12 AM CDT documented in this encounter Consult Notes * Conchita Ontvieros M.D. - 07/30/2025 9:20 AM CDT Gastroenterology & Hepatology Clinic Note DATE: 07/30/2025 REFERRING PROVIDER: Natanael Cummings M.D. PRIMARY CARE PROVIDER: No primary care provider on file. SUBJECTIVE Supervising Assistant Sales Director: Dr. Dao CHIEF COMPLAINT / REASON FOR VISIT Pancreatic pseudocyst HISTORY OF PRESENT ILLNESS Addi Oro is a 54 y.o. 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 The patient first started noting unintentional weight loss and was feeling very fatigued and out ofit in 2022. He went from 175 to 135 over about a year long time frame. He was eating normally and was not having any abdominal pain at that time. He underwent EUS 08/2023 which showed a 1.6 cm cysticin the pancreatic tail with appearance consistent with a pseudocyst. He also had pancreatic parenchymal changes consistent with chronic pancreatitis. Fluid from the cyst was aspirated with negative mucicarmine stain, CEA 152, and amylase >7,500. This was thought to be a pseudocyst. At this time, he was drinking about 5 drinks of hard liquor per week, and had been for about 30 years. He also has smoked about a pack per day of cigarettes since age 15. In 2023, he had a couple episodes of abdominal pain which he attributed to being constipated, but nothing major. However, he wasthen hospitalized at [facility] 01/02-01/06/2024 with severe LUQ/chest pain initially thought to have a STEMI due to ST elevation in the inferior leads however angiogram only showed mild CAD. Lipase was elevated at [address] 01/03/2024 showed a 5 mm splenic artery pseudoaneurysm and a similar size pancreatic tail lesion measuring 1.8 x 2.1 x 1.7 cm with a superimposed inflammatory process. The following day, he had an episode of hematemesis prompting repeat CTA abdomen pelvis which showed new hemoperitoneum. Due to concern for arterial bleed, he underwent splenic artery embolization 01/04/2024. His symptoms improved and he was discharged on 01/06/2024. After this hospitalization, he quit drinking for some time. He now drinks about 1-2 drinks every other week. He reportedly underwent an endoscopy with [facility] 05/2024 at which time he was diagnosed with a fungal infection and treated with antifungals. He does not think this was in the pseudocyst, but we unfortunately do not have these records. Over the past year, he has had about 4-5 episodes of left-sided retrosternal pain within 30 min to 2 hours of eating if he eats something large, fatty, or sugary. Whenever he has pain, it feels like someone is sticking a needle through the left shoulder blade into the left retrosternal area. The intense pain goes away after a few hours, but leaves a very sore muscle feeling. Given this happens with larger meals, he now eats about 8 snacks per day instead of full meals. He had a more severe episode 05/29/2025 which was initially presumed to be pancreatitis, however lipase was normal. CT abdomenand pelvis did not show any acute peripancreatic inflammation but did show the cystic lesion had now enlarged to 5.8 x 5.8 x 5.5 cm located between the pancreatic tail and spleen with a thick cyst wall. It was thought that this could be causing mass effect/nerve compression resulting in shoulder and epigastric pain. He was referred to [facility] for ongoing evaluation. CT abdomen and pelvis yesterday showed the cyst has now enlarged to 11.1 x 10.8 x 10.5 cm with a thickened wall but no internal gas. The fluid collection is showing mass effect on the spleen and displacing the spleen posteriorly. There is also an area of low density within the spleen which could ryan infarct/laceration. Some of the embolization coils have been displaced from mass effect and there is an embolization coil within the parenchyma of the pancreatic tail. Since his initial weight loss, he has gained back about 10 lb and his weight has plateaued around 145 lb. He continues to eat 8 snacks per day given larger meals cause pain in his left upper quadrant/chest region. He denies any diarrhea or steatorrhea. He continues to smoke a pack of cigarettes perday. He is adopted so he is not sure of any family history of pancreatitis or pancreatic cancer. OBJECTIVE VITAL SIGNS Vitals: 07/30/25 0912 BP: 106/69 Pulse: 75 PHYSICAL EXAMINATION General: Alert, thin appearing male, sitting in chair comfortably, no acute distress. HEENT: Moist mucous membranes, no scleral icterus. Lungs: Normal work of breathing on room air. Abdomen: Soft, nondistended, mild pressure in the left upper quadrant without significant pain. No mass appreciated. ASSESSMENT / PLAN # Large pancreatic pseudocyst # Acute pancreatitis 12/2023 c/b splenic artery pseudoaneurysm s/p embolization # Chronic pancreatitis of the pancreatic tail # Tobacco use disorder Addi Oro is a 54 y.o. 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 The patient has a history of acute pancreatitis secondary to tobacco and alcohol use. He was initially found to have a small pancreatic pseudocyst 08/2023 which has now grown in size substantially and has a even doubled in size over the past 2 months. A pseudocyst is now causing mass effect on his stomach, diaphragm, and spleen which has led to left upper quadrant pain following eating. He also ap pears to have evidence of chronic pancreatitis in the pancreatic tail given calcifications seen within the pseudocyst on CT abdomen 12/2023. Fortunately, he does not appear to have any evidence of pancreatic insufficiency at this time. We discussed with the patient that his acute pancreatitis is secondary to tobacco and alcohol use. We discussed how if he continues to smoke cigarettes, he will continue to have risk of developing acute pancreatitis as well as further progression of chronic pancreatitis and risk of developing pancreatic exocrine insufficiency as well as a higher risk of pancreatic cancer in the areas for chronic pancreatitis. We recommend complete cessation of smoking and alcohol use to decrease this risk. We offered nicotine dependence counseling, however he declined this but he is motivated to quit smoking on his own. For his pseudocyst, we recommend proceeding with EUS with cyst gastrostomy for decompression of thepseudocyst. 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 We will plan to repeat CT ofthe abdomen and pelvis 1 month after cyst gastrostomy placement. If this is has decompressed, we will then remove the stent and repeat imaging 1 month following this. If the cyst does not decompress after initial cyst gastrostomy placement or if the cyst reaccumulate after initial stent is removed,we will then plan for repeat stent placement which we would then likely leave in place indefinitely. Plan to follow up with me via phone after initial [address] scan to determine next steps. Recommendations: -EUS with cystgastrostomy for symptomatic large pseudocyst -Repeat CT abdomen pelvis in 1 month to assess for cyst decompression -If cyst has decompressed in 1 month, we will remove the stent and then repeat CT in 1 month -If cyst were to reaccumulate after stent removal, we would then replace the stent and leave in place indefinitely I personally spent over half of total 60 minutes in counseling and discussion with the patient and coordination of care as described above. CC: Natanael Cummings M.D. -- Conchita Ontiveros MD PGY-4 Gastroenterology and Hepatology Fellow Cosigned by Jackeline Dao M.B.B.S., M.S. at 07/30/2025 5:28 PM CDT Associated attestation - Jackeline Dao M.B.B.S., M.S. - 07/30/2025 5:28 PM CDT I saw and evaluated the patient, participating in the silva portions of the service. I reviewed the resident/fellow???s note. I agree with the resident/fellow???s findings and plan. In addition I have the following assessment. Mr. Preethi hamilton is a very pleasant 54 years old gentleman with history of ongoing nicotine dependence. In 2022, he underwent CT imaging for fatigue and some nonspecific symptoms which identified pancreatic cystic lesion in the tail, for which he eventually ended up with PET-CT scan and endoscopic ultrasound with sampling for which he was told this is a pseudocyst. Subsequently in 2023 he had an episode of acute pancreatitis and hemoperitoneum due to a splenic artery pseudoaneurysm that required embolization. In 2024, he started having symptoms of early satiety and some meals intolerance. CT abdomen was pursued in May of this year highlighting an enlarging cystic lesion by the pancreatic tail. I reviewed his imaging and he clearly sustained an episode of acute pancreatitis back in 2023 demonstrated by peripancreatic stranding along with a slightly expanding pancreatic tail cystic lesion that does have the appearance of a pseudocyst with a speck of calcification, meanwhile his most recentCT does demonstrate expansion of the cystic lesion with some perigastric impingement. His repeat imaging at [facility] highlights enlarging cystic lesion with classic compression effect against the stomach greater curvature as well as the left hemidiaphragm. Certainly he will benefit from cyst gastrostomy and cyst drainage, however I worry about an ongoing pancreatic fistula by that region for which potential indefinite stenting might be required but we will assess the need for that depends onresponse to his initial drainage attempt. On the other hand, we have had extensive discussion aboutthe significant importance of smoking cessation as I believe he might be having underlying chronic p ancreatitis findings specially with the prior speck of calcification seen within the center of the pancreatic cystic lesion. documented in this encounter Plan of Treatment Upcoming Encounters Date Type Department Care Team (Latest Contact Info) Description 09/21/2025 12:15 PM LITHOGRAPHIC PHOTOGRAPHER Appointment Division of Gastroenterology in [address] [phone] Jackeline Dao M.B.B.S., M.S. [address] [place] [phone] Ronen Garcia M.D. [address] [place] [phone] Discharge Disposition: Home or Self Care 10/22/2025 7:00 AM LITHOGRAPHIC PHOTOGRAPHER Appointment Department of Radiology, [facility], in [address] [phone] Conchita Ontiveros M.D. [address] [place] [phone] 10/23/2025 1:40 PM LITHOGRAPHIC PHOTOGRAPHER Virtual Visit Division of Gastroenterology in [address] [phone] Conchita Ontiveros M.D. [address] [place] [phone] Scheduled Orders Name Type Priority Associated Diagnoses Orde r Schedule CT Abdomen Pelvis with IV Contrast Imaging RAD - Routine (most inpatients and all outpatients) Pseudocyst Pancreas Expected: 10/22/2025, Expires: 10/30/2026 Scheduled Referrals Name Type Priority Associated Diagnoses Order Schedule Gastroenterology and Hepatology office visit (clinic) Outpatient Referral Routine Expected: 08/30/2025, Expires: 10/30/2026 documented as of this encounter Visit Diagnoses Diagnosis Pseudocyst Pancreas- Primary Nicotine Dependence Pancreatitis Chronic (HCC) Pancreatitis Acute (HCC) documented in this encounter
[2025-09-11 11:19] VITALS: BP 161/84; PULSE 90; RESP 18; TEMP 37; O2SAT 96; BMI 21.5
--- OUTSIDE RECORDS SUMMARY | 2025-09-11 11:20 | XMS_ITS | Clinical Summary ---
Author Organization [facility] Address [address] [place] [address] Care Team Providers Care Baker Bench Name Role Phone Eleno Vines MD Primary Care Provider Allergies Active Allergy Reactions Criticality Noted Date Comments Morphine Itching Low 06/09/2007 Feels like poison octavio Peanut Other - Describe In Comment Field 11/15/2019 Itching mouth Medications lithium carbonate (LITHOBID) 300 mg Controlled-Release tablet 10/26/19 20 Active valACYclovir (VALTREX) 1 gram tabletIndications: HSV (herpes simplex virus) infection Take 1 tablet by mouth once daily. 30 tablet 11 12/19/19 21 Active Additional Information Patient not taking.Reported on 06/07/2025 terbinafine HCL (LamISIL) 250 mg tabletIndications: Tinea pedis of both feet,Dermatophytos is of nail Take 1 Tablet (250 mg) by mouth once daily. 90 Tablet 01/01/20 21 Active nicotine 21 mg/24 hr (NICODERM; HABITROL) 21 mg/24 hr patchIndications:S moking greater than 40 pack years Apply 1 Patch on dry, clean, hairless skin once daily. 30 Patch 11 10/01/20 21 Active Additional Information Patient not taking.Reported on 06/07/2025 cabergoline (DOSTINEX) 0.5 mg tabletIndications: Delayed ejaculation Take 0.5 mg by mouth every Wednesday and . 14 Tablet 11 11/10/19 22 Active Additional Information Patient not taking.Reported on 06/07/2025 testosterone enanthate (Xyosted) 75 mg/0.5 mL atInIndications:Hy pogonadism in male Inject 75 mg subcutaneous once weekly. 4 Each 5 03/04/20 22 Active Additional Information Patient not taking.Reported on 06/07/2025 ammonium lactate (AmLactin) 12 % lotionIndications: Dry skin Apply topically to affected area(s) two times daily. 396 g 01/25/20 25 Active pantoprazole (PROTONIX) 40 mg delayed-release tabletIndications: Chest pain, unspecified type,Pancreatic pseudocyst (HC),Gastritis, presence of bleeding unspecified, unspecified chronicity, unspecified gastritis type,Colitis Take 1 Tablet (40 mg) by mouth once daily. 30 Tablet 05/29/20 25 Active acetaminophen (TYLENOL EXTRA STRGTH) 500 mg tabletIndications: Acute pancreatitis, unspecified complication status, unspecified pancreatitis type (HC) Take 2 Tablets (1,000 mg) by mouth every 6 hours if needed for Pain. Max acetaminophen dose: 4000mg in 24 hrs. 60 Tablet 05/29/20 25 Active ibuprofen (ADVIL; MOTRIN) 600 mg tabletIndications: Acute pancreatitis, unspecified complication status, unspecified pancreatitis type (HC),Pancreatic pseudocyst (HC),Gastritis, presence of bleeding unspecified, unspecified chronicity, unspecified gastritis type Take 1 Tablet (600 mg) by mouth every 6 hours if needed for Pain. Maximum of 3200 mg in 24 hours. 28 Tablet 05/29/20 25 Active ondansetron (ZOFRAN ODT) 4 mg disintegrating tabletIndications: Acute pancreatitis, unspecified complication status, unspecified pancreatitis type (HC),Pancreatic pseudocyst (HC) Place 1 Tablet (4 mg) on the tongue every 8 hours if needed for Nausea/Vomiting. 30 Tablet 05/29/20 25 Active Active Problems Problem Noted Date Diagnosed Date Failed back syndrome 02/18/2011 Hyperplastic colon polyp 12/29/2010 Overview (12/29/2010): Colonoscopy 12/2010 polyp repeat in 10 years LESLIE 06/2009 AHI- 9, supine 22 09/23/2009 Degeneration of cervical intervertebral disc 06/2009 Lumbar Disk Injury, 2007 Discectomy 06/26/2009 Tobacco use disorder 12/13/2007 Genital [...] pur e alcohol) 2 drinks 4 days/week Interpersonal Safety Answer Date Record ed Are you being hit, kicked, p ushed or yelled at (see row info)? No 05/29/2025 Interpersonal Safety Abuse 12 - 18 Not on file 05/29/2025 Interpersonal Safety Ambulatory Vulnerability No t on file 05/29/2025 Sex and Gender Information Value Date Recorded Sex Assigned at Not on file Legal Sex Male 5:26 AM PIGMENT WEIGHER Gender Identity Not on file Sexual Orientation Not on file Occupation Industry Job Start Date Job End Date Not on file Not on file Not on file Not on file Obstetrics History Last Filed Vital Signs Vital Sign Reading Time Taken Comments Blood Pressure 130/79 06/07/2025 1:42 PM CDT Pulse 77 06/07/2025 1:42 PM CDT Temperature 36.6 C (97.8 F) 05/29/2025 6:53 AM CDT Respiratory Rate 18 05/29/2025 6:53 AM CDT Oxygen Saturation 99% 06/07/2025 1:42 PM CDT Inhaled Oxygen Concentration - - Weight 68.8 kg (151 lb 9.6 oz) 06/07/2025 1:42 P M CDT Height 177.8 cm (5' 10) 05/29/2025 6:58 AM CDT Body Mass Index 21.75 05/29/2025 6:58 AM CDT Plan of Treatment Health Maintenance Due Date Last Done Comments Depression screening for age 12+ 1982 Hepatitis B series for 19+ ( 1 of 3 - 19+ 3-dose series) 1989 Pneumococcal series for age 50+ (1 of 2 - PCV) 1989 Lipids for age 45-75 2015 02/07/2009 BMI (ht and wt on same day) for age 18+ 02/25/2017 02/26/2016 Zoster (shingles) series for age 50+ (1 of 2) 2020 Colonoscopy through age 75 12/23/2020 12/23/2010 Tetanus booster 08/05/2021 08/05/2011, 07/19, 08/24/2000 Influenza Vaccine (#1) 2025 RSV vaccine for adults or pr egnancy (1 - 1-dose 75+ series) 2045 HIV for age 15-65 Completed 09/20/2008 Hepatitis C screening for age 18-79 Completed 09/20 Procedures Procedure Name Priority Date/Time Associated Diagnosis Comments LIPID PANEL Routine 02/07/2009 8:15 AM CDT Lipid Screening EXPOSURE (BBF) RAPID HIV Routine 09/20/2008 3:20 PM PIGMENT WEIGHER Accidental Puncture or Laceration During a Procedure EXPOSURE (BBF) ANTI HCV Routine 09/20/2008 3:20 PM PIGMENT WEIGHER Accidental Puncture or Laceration During a Procedure from Last 3 Months or Most Recently Relevant to Health Maintenance Results * (ABNORMAL) LIPID PANEL (02/07/2009 8:15 AM CDT) CHOLESTEROL,TOTAL 208(H) 110 - 199 mg/dL [facility] TRIGLYCERIDES 405(H) <150 mg/dL [facility] HDL CHOLESTEROL 38(L) >40 mg/dL [facility] CHOL/HDL RATIO 5.47(H) <4.51 [facility] LDL CHOLESTEROL Invalid LDL when Trig >400. [facility] PATIENT STATUS Fasting [facility] Blood specimen (specimen) BLOOD SPECIMEN / Unknown 02/07/2009 8:15 AM CDT 02/07/2009 8:15 AM CDT us [address] MD CHEMISTRY Final Result [facility] [address] [place] [address] * PATIENT SOURCE RAPID HIV (09/20/2008 3:20 PM PIGMENT WEIGHER) SOURCE RAPID HIV SCREEN Non-react dash (Nonreact dash) [facility] Blood specimen (specimen) BLOOD SPECIMEN / Unknown 09/20/2008 3:20 PM PIGMENT WEIGHER 09/20/2008 3:13 PM PIGMENT WEIGHER us Lee Deal MD SEND OUTS Final Re sult [facility] INTERNAL ZIP [id number] [address] * PATIENT SOURCE ANTI HCV (09/20/2008 3:20 PM PIGMENT WEIGHER) SOURCE ANTI HCV Non-react dash [facility] Blood specimen (specimen) BLOOD SPECIMEN / Unknown 09/20/2008 3:20 PM PIGMENT WEIGHER 09/20/2008 3:13 PM PIGMENT WEIGHER us Lee Deal MD SEND OUTS Final Re sult [facility] INTERNAL ZIP [phone] [place] [phone] from Last 3 Months or Most Recently Relevant to Health Maintenance Insurance [facility] Advance Directives * Full Code (Latest Code Status on File) Date Activated Date Inactivated Comments 08/26/2010 10:43 AM 08/27/2010 2:10 PM * Full Code Date Activated Date Inactivated Comments 11/01/2007 8:49 AM 11/02/2007 4:04 PM * Full Code Date Activated Date Inactivated Comments 11/01/2007 6:23 AM 11/01/2007 8:49 AM Care Teams Baker Bench Relationship Specialty Start Date End Date Eleno Vines MD [address] [place] [id number] PCP - General Internal Medicine 08/11/19
--- OUTSIDE RECORDS SUMMARY | 2025-09-11 11:20 | XMS_ITS | Clinical Summary ---
Author Organization [facility] Address [address] [place] [id number] Care Team Providers Care Supervising Librarian Name Role Phone No Ref-Primary, Physician Primary [...] on file Legal Sex Male 3:48 AM CATALOGUE MAKER Gender Identity Not on file Sexual Orientation Not on file Last Filed Vital Signs Vital Sign Reading Time Taken Comments Blood Pressure 138/82 09/07/2023 10:50 AM CATALOGUE MAKER Pulse 66 09/07/2023 10:50 AM CATALOGUE MAKER Temperature - - Respiratory Rate 15 09/07/2023 10:50 AM CATALOGUE MAKER Oxygen Saturation 99% 09/07/2023 10:50 AM CATALOGUE MAKER Inhaled Oxygen Concentration - - Weight 70.3 kg (155 lb) 09/07/2023 9:40 AM CATALOGUE MAKER Height 177.8 cm (5' 10) 09/07/2023 9:40 AM CATALOGUE MAKER Body Mass Index 22.24 09/07/2023 9:40 AM CATALOGUE MAKER Plan of Treatment Health Maintenance Due Date Last Done Comments ADVANCE CARE PLANNING 1970 ANNUAL REVIEW OF HM ORDERS 1970 CT COLONOGRAPHY 1970 DIABETES SCREENING 1970 FIT 1970 FLEX SIG 1970 sDNA (Cologuard) 1970 YEARLY PREVENTIVE VISIT 1973 COLONOSCOPY 1980 COLORECTAL CANCER SCREENING 1980 HIV SCREENING 1985 HEPATITIS C SCREENING 1988 HEPATITIS B VACCINE (1 of 3 - 19+ 3-dose series) 1989 LIPID 2010 LUNG CANCER SCREENING 2020 PNEUMOCOCCAL VACCINE 50+ YEARS (1 of 1 - PCV) 2020 ZOSTER VACCINE (1 of 2) 2020 PHQ-2 (once per calendar year) 2024 COVID-19 VACCINE (1 - 2024- season) 2025 INFLUENZA VACCINE (#1) 2025 DTAP/TDAP/TD VACCINE (5 - Td or Tdap) 03/28/2032 03/28/2022, 08/05/2011, 08/14/2010, Additional history exists HPV VACCINE (No Doses Required) Completed MENINGITIS VACCINE Aged Out No longer eligible based on patient's age to complete this topic Insurance [facility] Care Teams Supervising Librarian Relationship Specialty Start Date End Date No Ref-Primary, Physician PCP - General 08/27/23
--- OUTSIDE RECORDS SUMMARY | 2025-09-11 11:20 | XMS_ITS | Encounter Summary ---
Author Organization [facility] Address [address] [place] [address] Care Team Providers Care An Employee Sponsor Or Advocate And Name Role Phone Unavailable Primary Care Provider Unavailabl e Reason for Referral * Outpatient (Routine) - Authorized Specialty Diagnoses / Procedures Referred By Rodolfo t Referred To Contact Rasheed Torres MD [facility] Referral ID Status Reason Start Date Expiration Date V isits Requested Visits Authorized [id number] Authorized 06/21/2025 12/21/2026 1 1 Encounter Details Date Type Department Care Team (Late st Contact Info) Description 06/21/2025 Orders Only Division of Gastroenterology in [place], [place] [address] [place] [phone] [facility] Social History Tobacco Use Types Packs/Day Years Used Date Smoking Tobacco: Every Day Cigarettes Alcohol Use Standard Drinks/Week Comments Yes 0 (1 standard drink = 0.6 oz pur e alcohol) [facility] Utilities Answer Date Recorded In the past 12 months has [facility] [employer] gas, oil, or water [employer] threatened to shut off services in your [...] things needed for daily living? No 01/03/2024 Housing Stability Answer Date Recorded What is your living situation today? I have a [facility] place to live 01/03/2024 Sex and Gender Information Value Date Recorded Sex Assigned at Male 07/04/2025 12:26 PM CDT Legal Sex Male 9:23 AM ENGINEERING ASSISTANT Gender Identity Male 07/04/2025 12:26 PM CDT Sexual Orientation Straight 07/04/2025 12 :26 PM CDT documented as of this encounter Plan of Treatment Upcoming Encounters Date Type Department Care Team (Latest Contact Info) Description 09/21/2025 12:15 PM ENGINEERING ASSISTANT Appointment Division of Gastroenterology in [place], [place] [address] [place] [phone] Jackeline Dao M.B.B.S., M.S. [address] [place] [phone] Ronen Garcia M.D. [address] [place] [phone] Discharge Disposition: Home or Self Care 10/22/2025 7:00 AM ENGINEERING ASSISTANT Appointment Department of Radiology, [facility], in [place], [place] [address] [place] [address] Conchita Ontiveros M.D. [address] [place] [address] 10/23/2025 1:40 PM ENGINEERING ASSISTANT Virtual Visit Division of Gastroenterology in [place], [place] [address] [place] [phone] Conchita Ontiveros M.D. [address] [place] [address] Scheduled Referrals Name Type Priority Associated Diagnoses Orde r Schedule Previsit Telehealth: Outpatient Referral Routine Expected: 06/21/2025, Expires: 09/20/2026 documented as of this encounter Visit Diagnoses Not on filedocumented in this encounter
--- OUTSIDE RECORDS SUMMARY | 2025-09-11 11:20 | XMS_ITS | Clinical Summary ---
Author Organization [facility] Address [address] [place] [address] Care Team Providers Care Crime Victim Specialist Name Role Phone Unavailable Primary Care Provider Unavailabl e Source Comments Patient records contain information from all sites at [facility]. For routine questions regarding patient records, call [phone] during business hours, M-F 8:00 AM - 5:00 PM Central Time. Record requests for emergency care only can be directed to [phone] at any time.[facility] Allergies Active Allergy Reactions Criticality Noted Date Comments [place] Nut Itching High 01/09/2025 Morphine Itching,Other (see comments) High 06/09/2007 Feels like poison octavio Peanut Other (see comments) 11/15/2019 Itching mouth Tree Nut Itching 07/26/2025 Medications * This document contains information received from the source organization and may not represent a complete record from that organization. multivitamin-ir on-FA (CENTRUM COMPLETE) 18-400 mg-mcg per tablet Take 1 tablet by mouth daily. 4 Active acetaminophen (TYLENOL) 500 mg tablet Take 2 tablets (1,000 mg total) by mouth every 6 (six) hours as needed for pain. 4 Active rosuvastatin (CRESTOR) 20 mg tablet Take 1 tablet (20 mg total) by mouth at bedtime. 90 tablet 3 4 Active Additional Information Patient not taking.Reported on 07/26/2025 thiamine (VITAMIN B1) 100 mg tablet Take 1 tablet (100 mg total) by mouth daily. 5 tablet 4 Active oxyCODONE (ROXICODONE) 5 mg immediate release tabletIndicatio ns:Acute Pain Take 1 tablet (5 mg total) by mouth every 6 (six) hours as needed for severe pain or score 7-10 of 10 Indication: Acute Pain. 5 tablet 4 Active Additional Information Patient not taking.Reported on 07/26/2025 traMADoL (Ultram) 50 mg tablet Take 1 tablet by mouth every 8 (eight) hours as needed for pain. 5 Active omeprazole (PriLOSEC) [address] capsule Take 20 mg by mouth daily before morning meal. Active pantoprazole (Protonix) 40 mg EC tablet Take 40 mg by mouth daily before morning meal. Active traMADoL (Ultram) 50 mg tablet Take 50 mg by mouth. Active pantoprazole (Protonix) 40 mg EC tablet Take 40 mg by mouth daily. 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 Date Type Department Care Team Description 07/30/2025 9:20 AM CDT Comprehensive Visit Division of Gastroenterology in [place], [place] [address] [place] [address] Conchita Ontiveros M.D. Pseudocyst Pancreas (Primary Dx); Nicotine Dependence; Pancreatitis Chronic (HCC); Pancreatitis Acute (HCC) 07/29/2025 1:47 PM CDT - 07/29/2025 11:59 PM CDT Hospital Encounter Department of Radiology, [facility], in [place], [place] [address] [place] [phone] Jackeline Dao M.B.B.S., M.S. Pseudocyst Pancreas; Pancreatitis Acute (HCC) [K85.90] Discharge Disposition: Home or Self Care 07/26/2025 10:45 AM CDT Clinical Communication Virtual Review in [address] [phone] Previsit Preparation ([facility]ALES DONE ER 07/26 ) 07/11/2025 11:00 AM CDT Telemedicine Division of Gastroenterology in [place], [place] [address] [place] [phone] Eloisa Ontiveros R.N. Cyst Pancreas (Primary Dx); Pseudocyst Pancreas; Pancreatitis Acute (HCC) [K85.90] 07/06/2025 10:45 AM CDT Clinical Communication Virtual Review in [address] [phone] Previsit Preparation 06/21/2025 Clinical Communication Division of Gastroenterology in [address] [phone] Prescheduling, Provider Pancreas 06/21/2025 Orders Only Division of Gastroenterology in [address] [phone] [facility], ProviderMD from Last 3 Months Immunizations Immunization Administration Dates Next Due DTaP ([employer], [employer]) 03/12/1976 Polio, Unspecified 03/12/1976 Tdap 03/28/2022,08/05/2011,08/14/2010 Social History Tobacco Use Types Packs/Day Years Used Date Smoking Tobacco: Every Day Cigarettes 1 44.5 Started: 03/18/1981 Smokeless Tobacco: Never Tobacco Cessation:Ready to Q uit: Not Asked; Counseling Given: Not Answered Alcohol Use Standard Drinks/Week Comments Not Currently [...] things needed for daily living? No 07/04/2025 [facility] Utilities Answer Date Recorded In the past 12 months has [employer] electric, gas, oil, or water company threatened to shut off services in your home? No 07/04/2025 Housing Stability Answer Date Recorded What is your living situation today? I have a [facility] place to live 07/04/2025 Sex and Gender Information Value Date Recorded Sex Assigned at Male 07/04/2025 12:26 PM CDT Legal Sex Male 9:23 AM DENTAL INSURANCE COORDINATOR Gender Identity Male 07/04/2025 12:26 PM CDT Sexual Orientation Straight 07/04/2025 12 :26 PM CDT Last Filed Vital Signs Vital Sign Reading Time Taken Comments Blood Pressure 106/69 07/30/2025 9:12 AM CDT Pulse 75 07/30/2025 9:12 AM CDT Temperature 37.1 C (98.8 F) 01/06/2024 11:00 AM CDT Respiratory Rate 16 01/06/2024 11:00 AM CDT Oxygen Saturation 97% 01/06/2024 11:00 AM CDT Inhaled Oxygen Concentration - - Weight 68 kg (149 lb 14.6 oz) 07/30/2025 9:12 AM CDT Height 179 cm (5' 10.47) 07/30/2025 9:12 AM CDT Body Mass Index 21.22 07/30/2025 9:12 AM CDT Plan of Treatment Upcoming Encounters Date Type Department Care Team (Latest Contact Info) Description 09/21/2025 12:15 PM DENTAL INSURANCE COORDINATOR Appointment Division of Gastroenterology in [place], [place] [address] [place] [phone] Jackeline Dao M.B.B.S., M.S. [address] [place] [phone] Ronen Garcia M.D. [address] [place] [phone] Discharge Disposition: Home or Self Care 10/22/2025 7:00 AM DENTAL INSURANCE COORDINATOR Appointment Department of Radiology, [facility], in [place], [place] [address] [place] [phone] Conchita Ontiveros M.D. [address] [place] [phone] 10/23/2025 1:40 PM DENTAL INSURANCE COORDINATOR Virtual Visit Division of Gastroenterology in [place], [place] [address] [place] [phone] Conchita Ontiveros M.D. [address] [place] [phone] Health Maintenance Due Date Last Done Comments CT Colonography 1970 Cologuard 1970 Colonoscopy 1970 Colorectal Cancer Surveillance 1970 Hepatitis C Screening 1970 Lung Cancer Screening 1970 Tobacco Cessation counseling 1970 IPV Vaccines (2 of 3 - 4-dos e series) 04/09/1976 03/12/1976 Hepatitis B Vaccines (1 of 3 - 19+ 3-dose series) 1989 Pneumococcal vaccine (50+ ye ars) (1 of 2 - PCV) 1989 Zoster Vaccines (1 of 2) 2020 Depression Screening (Annual PHQ-2) 10/18/2024 COVID-19 Vaccine (1 - 2024-2 6 season) 2025 Influenza Vaccine (#1) 2025 Fasting Glucose for Diabetes Screening 07/29/2028 07/29/2025, 05/29/2025, 01/06/2024, Additional history exists Lipid (Cholesterol) Screening 01/02/2029 01/03/2024 DTaP,Tdap,and Td Vaccines (5 - Td or Tdap) 03/28/2032 03/28/2022, 08/05/2011, 08/14/2010, Additional history exists Medical Devices Implanted Type Area Towel Inspector Device Identifier Shelf Expiration Date Model / Serial / Lot Coil Azur Cx Det 018 4x13 - [id number] Implanted:Qty : 1 on 01/04/2024 by Olivier Sosa M.D. at [facility] Embolization [employer]il [employer] 08/17/2028 [id number] / / [id number] Coil Azur Cx Det 018 2x4 - [id number] Implanted:Qty : 1 on 01/04/2024 by Olivier Sosa M.D. at [facility] [employer] 12/15/2026 [id number] / / [id number] Coil Azur Cx Det 018 2x4 - [id number] Implanted:Qty : 1 on 01/04/2024 by Olivier Sosa M.D. at [facility] [employer] 08/17/2028 [id number] / / [id number] Coil Azur Cx Det 018 4x13 - [id number] Implanted:Qty : 1 on 01/04/2024 by Olivier Sosa M.D. at [facility] [employer] 08/17/2027 [id number] / / [id number] Azur Hydropack 18 5cm Implanted:Qty : 1 on 01/04/2024 by Olivier Sosa M.D. at [facility] [employer] 07/17/2028 [id number] / / [id number] Azur Hydropack 18 5cm Implanted:Qty : 1 on 01/04/2024 by Olivier Sosa M.D. at [facility] [employer] 07/17/2028 [id number] / / [id number] Azur Hydropack 18 10cm Implanted:Qty : 1 on 01/04/2024 by Olivier Sosa M.D. at [facility] [employer] 09/16/2028 [id number] / / [id number] Azur Hydropack 18 20cm Implanted:Qty : 1 on 01/04/2024 by Olivier oSsa M.D. at [facility] [employer] 07/17/2028 [id number] / / [id number] Procedures Procedure Name Priority Date/Time Associated Diagnosis Comments CT ABDOMEN PELVIS WITH IV CONTRAST RAD - Routine (most inpatients and all outpatients) 07/29/2025 2:13 PM CDT Pseudocyst Pancreas Pancreatitis Acute (HCC) [K85.90] PROTHROMBIN TIME (PT), P Routine 07/29/2025 12:22 PM CDT Pseudocyst Pancreas Pancreatitis Acute (HCC) [K85.90] COMPREHENSIVE METABOLIC PANEL, S/P Routine 07/29/2025 12:22 PM CDT Pseudocyst Pancreas Pancreatitis Acute (HCC) [K85.90] CBC WITH DIFFERENTIAL, B Routine 07/29/2025 12:21 PM CDT Pseudocyst Pancreas Pancreatitis Acute (HCC) [K85.90] LIPID PANEL, S STAT 01/03/2024 3:03 PM CDT from Last 3 Months or Most Recently Relevant to Health Maintenance Results * CT Abdomen Pelvis with IV [...] placement, which is seen best on the ssrs developer image for this exam (series 1, image [...] parenchyma of the pancreatic tail (series 4, [id number]), not significantly changed since 05/29/2025. The configuration ofthe coils has changed since the time of placement, which is seen best onthe ssrs developer image for this exam (series 1, image [...] Grimaldo, M.S. IMG CT PROCEDURES Final Result * Prothrombin Time (PT) (07/29/2025 12:22 PM CDT) Prothrombin Time, P 12.0 9.4 - 12.5 sec 07/29/2025 12:46 PM CDT DTL INR 1.1 0.9 - 1.1 07/29/2025 12:46 PM CDT DTL Comment: ----ADDITIONAL INFORMATION---- Standard intensity warfarin therapeutic range: 2.0 to 3.0 High intensity warfarin therapeutic range: 2.5 to 3.5 Blood (Blood, Venous) 07/29/2025 12:22 PM CDT 07/29/2025 12:28 PM CDT Jackeline Grimaldo, M.S. LAB BLOOD ADD-ON F inal Result [facility] [address] [place] [address], [place] DTL [facility] [place] [address] [place] [address] * (ABNORMAL) Comprehensive Metabolic Panel (07/29/2025 12:22 PM CDT) [facility] Potassium, S 5.0 3.6 - 5.2 mmol/L 07/29/2025 12:56 PM CDT DTL Sodium, S 134(L) 135 - 145 mmol/L 07/29/2025 12:56 PM CDT DTL Chloride, S 99 98 - 107 mmol/L 07/29/2025 12:56 PM CDT DTL Bicarbonate, S 25 22 - 29 mmol/L 07/29/2025 12:56 PM CDT DTL Anion Gap 10 7 - 15 07/29/2025 12:56 PM CDT DTL BUN (Blood Urea Nitrogen), S 14 8 - 24 mg/dL 07/29/2025 12:56 PM CDT DTL Creatinine 0.94 0.74 - 1.35 mg/dL 07/29/2025 12:56 PM CDT DTL Estimated GFR (eGFR) >90 >=60 mL/min/BS A 07/29/2025 12:56 PM CDT DTL Comment: Estimated GFR calculated using the 2020 CKD_EPI creatinine equation. Calcium, Total, S 9.6 8.6 - 10.0 mg/dL 07/29/2025 12:56 PM CDT DTL Glucose, S 115 70 - 140 mg/dL 07/29/2025 12:56 PM CDT DTL Protein, Total, S 6.9 6.3 - 7.9 g/dL 07/29/2025 12:56 PM CDT DTL Albumin, S 3.9 3.5 - 5.0 g/dL 07/29/2025 12:56 PM CDT DTL Aspartate Aminotransferase (AST), S 49(H) 8 - 48 U/L 07/29/2025 12:56 PM CDT DTL Alkaline Phosphatase, S 76 40 - 129 U/L 07/29/2025 12:56 PM CDT DTL Alanine Aminotransferase (ALT), S 48 7 - 55 U/L 07/29/2025 12:56 PM CDT DTL Bilirubin, Total, S 0.4 0.0 - 1.2 mg/dL 07/29/2025 12:56 PM CDT DTL Blood (Blood, Venous) 07/29/2025 12:22 PM CDT 07/29/2025 12:27 PM CDT us Jackeline Grimaldo, M.S. LAB BLOOD ADD-ON F inal Result [facility] [address] [place] [address], [facility] DTL [facility] [place] [facility] [place] [address] [place] [address] * (ABNORMAL) CBC with Differential, Blood (07/29/2025 12:21 PM CDT) Hemoglobin 12.2(L) 13.2 - 16.6 g/dL 07/29/2025 12:37 PM CDT DTL Hematocrit 36.3(L) 38.3 - 48.6 % 07/29/2025 12:37 PM CDT DTL Erythrocytes 4.01(L) 4.35 - 5.65 x10(12)/L 07/29/2025 12:37 PM CDT DTL MCV 90.5 78.2 - 97.9 fL 07/29/2025 12:37 PM CDT DTL RBC Distrib Width 14.1 11.8 - 14.5 % 07/29/2025 12:37 PM CDT DTL Platelet Count 498(H) 135 - 317 x10(9)/L 07/29/2025 12:37 PM CDT DTL Leukocytes 5.6 3.4 - 9.6 x10(9)/L 07/29/2025 12:37 PM CDT DTL Neutrophils 2.17 1.56 - 6.45 x10(9)/L 07/29/2025 12:36 PM CDT DHPM Lymphocytes 2.22 0.95 - 3.07 x10(9)/L 07/29/2025 12:37 PM CDT DTL Monocytes 0.88(H) 0.26 - 0.81 x10(9)/L 07/29/2025 12:37 PM CDT DTL Eosinophils 0.21 0.03 - 0.48 x10(9)/L 07/29/2025 12:37 PM CDT DTL Basophils 0.09(H) 0.01 - 0.08 x10(9)/L 07/29/2025 12:37 PM CDT DTL Blood (Blood, Venous) 07/29/2025 12:21 PM CDT 07/29/2025 12:29 PM CDT Jackeline Grimaldo, M.S. LAB BLOOD ADD-ON F inal Result [facility] [address] [place] [address], [facility] DTL [facility] [place] [facility] [place] [address] [place] [address] [facility] [address] [place] [address] * Lipid Panel (01/03/2024 3:03 PM CDT) [...] Ph.D. LAB BLOOD ADD-ON Fi nal Result [facility] [address] [place] [address], [facility] [address] [place] [address] from Last 3 Months or Most Recently Relevant to Health Maintenance Insurance [facility] Advance Directives For more information, please contact: [phone] * Full Code (Latest Code Status on File) Date Activated Date Inactivated Comments 01/03/2024 2:35 PM 01/06/2024 2:01 PM Question Answer Comments Full Code: Discussed
--- NOTE | 2025-09-11 13:32 | ED.GENADULT ---
HPI - General Adult General Date Seen: 09/11/25 Chief complaint: Head Injury/Pain Stated complaint: L side face pain Time Seen by Provider: 09/11/25 13:16 Source: patient Mode of arrival: ambulatory Limitations: no limitations History of Present Illness HPI narrative: Patient is a 54-year-old male presenting to emergency department for left sinus pain. He states he has been having viral symptoms for the past 2 weeks but then over the past few days has been noticing worsening left sinus pain along with some left sinus screen discharge from his nose. States the pain radiates to his forehead and jaw. Was seen by his dentist this morning for a checkup and was told no abnormalities were seen on their exam. Has not noticed any fevers or chills. States his has been having viral symptoms to. Has never had issues with sinus pain before. States he has a very mild headache please says it feels like it is radiating from his sinus. Denies any vision issues. Denies any weakness or numbness. Has not had any trismus. No other concerns noted Related Data Previous Rx's ?Medication ?Instructions ?Recorded tramadol 50 mg tablet 50 mg PO Q6H PRN pain #15 tabs 01/09/25 cyclobenzaprine 10 mg tablet 10 mg PO TID #15 tabs 04/14/25 ketorolac 10 mg tablet 10 mg PO TID 5 days #15 tabs 04/14/25 tramadol 50 mg tablet 50 mg PO TID PRN pain #60 tabs 04/14/25 amoxicillin 875 mg-potassium 1 tab PO BID 10 days #20 tabs 09/11/25 clavulanate 125 mg tablet Allergies Allergy/AdvReac Type Severity Reaction Status Date / Time [place] nut Allergy Intermediate swelling, Verified 09/11/25 11:21 itching morphine Allergy Intermediate nausea, Verified 09/11/25 11:21 hives Review of Systems Narrative: Pertinent systems reviewed and were negative unless stated in HPI PFSH PFSH Medical History Pancreatitis ?K85.90 - Acute pancreatitis without necrosis or infection, unspecified (ICD-10) Lung mass ?R91.8 - Other nonspecific abnormal finding of lung field (ICD-10) Pancreatic mass ?K86.89 - Other specified diseases of pancreas (ICD-10) Weight loss ?R63.4 - Abnormal weight loss (ICD-10) Hyperlipidemia ?E78.5 - Hyperlipidemia, unspecified (ICD-10) Lipoma of back ?D17.1 - Benign lipomatous neoplasm of skin and subcutaneous tissue of trunk (ICD-10) Dermatitis ?L30.9 - Dermatitis, unspecified (ICD-10) Surgical History S/P anterior [place] repair of right shoulder (~1989) ?Z98.890 - Other specified postprocedural states (ICD-10) ?Z87.828 - Personal history of other (healed) physical injury and trauma (ICD-10) H/O knee surgery ?Z98.890 - Other specified postprocedural states (ICD-10) History of colonoscopy ?Z98.890 - Other specified postprocedural states (ICD-10) History of shoulder surgery (11/26/21) ?Z98.890 - Other specified postprocedural states (ICD-10) History of dental surgery ?Z92.89 - Personal history of other medical treatment (ICD-10) Previous back surgery ?Z98.890 - Other specified postprocedural states (ICD-10) Social History What is your current living situation?: I presently have a place to live Problems where you live: no known problems In the past 12 months, utilities in danger of being shut off: no In the past 12 mos, have been you worried that your food would run out before you had money to buy more?: never true In the past 12 mos, the food you bought just didn't last and you didn't have money to buy more?: never true Smoking Status: Current every day smoker How often do you have a drink containing alcohol: 4 or more times a week How many standard drinks containing alcohol do you have on a typical day: 1 or 2 How often do you have six or more drinks on one occasion: Less than monthly AUDIT-C Alcohol total score: 5 Non-prescribed substance use: denies use How often does anyone, including family, friends and others, physically hurt you: How often does anyone, including family, friends and others, insult or talk down to you: How often does anyone, including family, friends and others, threaten you with harm: How often does anyone, including family, friends and others, scream or curse at you: service: No Exam Narrative: Exam Narrative: Const: Well-nourished, Well-developed, in mild distress Eyes: PERRL, no conjunctival injection, and symmetrical lids HENT: Atraumatic external nose and ears. Moist mucous membranes. Tenderness noted to left maxillary and frontal sinus. Good dentition. No signs of facial swelling or erythema. Neck: Symmetric, trachea midline, No thyromegaly. CVS: RRR, No murmurs or gallops. Peripheral pulses 2+ and equal in all extremities RESP: Unlabored respiratory effort. Clear to auscultation bilaterally. GI: Nontender/Nondistended, No rebound or guarding. MSK:Extremities w/o deformity, Normal Active ROM Skin: Warm, Dry. No rashes or lesions. Neuro: Normal Muscle tone, No focal neurological deficits. Psych: Awake, Alert, & Oriented x3. Appropriate mood and affect. Const: Vital Signs, click to edit/add: Vital Signs - 24 hr 09/11/25 11:19 Temperature 98.6 F Pulse Rate [Pulse Oximeter] 90 Respiratory Rate 18 Blood Pressure [Ri ght Upper Arm] 161/84 H Pulse Oximetry 96 Oxygen Delivery Me thod Room Air Course Vital Signs Vital signs: Initial Vital Signs Temperature 98.6 F 09/11/25 11:19 Temperature Source Temporal Artery Scan 09/11/25 11:19 Pulse Rate 90 09/11/25 11:19 Respiratory Rate 18 09/11/25 11:19 Blood Pressure 161/84 H 09/11/25 11:19 Blood Pressure Mean 109 H 09/11/25 11:19 Blood Pressure Position Sitting 09/11/25 11:19 Pulse Oximetry 96 09/11/25 11:19 Oxygen Delivery Method Room Air 09/11/25 11:19 Vital Signs Temperature 98.6 F 09/11/25 11:19 Pulse Rate 90 09/11/25 11:19 Respiratory Rate 18 09/11/25 11:19 Blood Pressure 161/84 H 09/11/25 11:19 Pulse Oximetry 96 09/11/25 11:19 Oxygen Delivery Method Room Air 09/11/25 11:19 Temperature 98.6 F 09/11/25 11:19 Pulse Rate 90 09/11/25 11:19 Respiratory Rate 18 09/11/25 11:19 Blood Pressure 161/84 H 09/11/25 11:19 Pulse Oximetry 96 09/11/25 11:19 Oxygen Delivery Method Room Air 09/11/25 11:19 Medications Administered Medications: Discontinued Medications Generic Name Dose Route Start Last Admin Trade Name Freq PRN Reason Stop Dose Admin Ketorolac Tromethamine 30 mg 09/11/25 13:35 09/11/25 13:44 Ketorolac 30 Mg/Ml Inj IM 09/11/25 13:36 30 mg ONCE ONE Administration Medical Decision Making MDM Narrative Medical decision making narrative: Patient is a 54-year-old male presenting for left maxillary sinus pain. He has no swelling around the area no erythema. Do not believe there is any signs of an abscess. Dentition looks good at this time. Symptoms are consistent with sinusitis. Considering how long he has been having viral symptoms I will treat her for bacterial sinusitis. He is agreeable to this plan. Will give him a dose of Toradol. Do not believe imaging will be beneficial at this time. Discharge Plan Discharge Clinical Impression: Sinusitis Patient Disposition: Home, Self-Care Condition: Stable Instructions: Sinusitis (ED) Additional Instructions: Take antibiotics as directed. If symptoms are not improving follow-up with the primary care provider. He may need to eventually see ENT. Take your home pain medication as needed. Return to emergency department for new or worsening symptoms such as systemic fatigue, fevers, changes in your mentation or any other concerning symptoms Prescriptions: New amoxicillin-pot clavulanate 875-125 mg tablet 1 tab PO BID 10 Days Qty: 20 0RF No Action tramadol 50 mg tablet 50 mg PO Q6H PRN (Reason: pain) Qty: 15 0RF tramadol 50 mg tablet 50 mg PO TID PRN (Reason: pain) Qty: 60 0RF cyclobenzaprine 10 mg tablet 10 mg PO TID Qty: 15 0RF ketorolac 10 mg tablet 10 mg PO TID 5 Days Qty: 15 0RF Follow Up/Referrals: Eleno Vines MD [Primary Care Provider, Internal Medicine] Stand Alone Forms: [facility] Info Instructions
== END 2025-09-11 13:51 | disposition home or self-care (01) ==
PROVIDERS: Emergency Provider Student in an Organized Health Care Education/Training Program; PCP Internal Medicine
DX: J01.00 Acute maxillary sinusitis, unspecified (principal); F17.210 Nicotine dependence, cigarettes, uncomplicated
CPT/HCPCS: 96372; 99283; J1885

== ENCOUNTER 2025-10-17 15:30 | Emergency (ER) | payer MEDICAID, SELFPAY ==
--- OUTSIDE RECORDS SUMMARY | 2025-09-21 09:48 | XMS_ITS | Encounter Summary ---
Author Organization [facility] Address [address] [place] [id number] Care Team Providers Care Rubber Stamp Die Inspector Name Role Phone Unavailable Primary Care Provider Unavailabl e Reason for Referral * Gastrointestinal (Routine) - ClosedSpecialtyDiagnoses / ProceduresReferred By ContactReferred To Contact Diagnoses Pseudocyst Pancreas Pancreatitis Acute (HCC) Procedures Upper Endoscopic Ultrasound (EUS) Jackeline Dao M.B.B.S., M.S. [address] [place] [address] Phone: tel: fax: [facility] Referral IDStatusMoreliaasonStart DateExpiration DateVisits RequestedVisits [id number]/25/202512/26/202611 IC RELATIONS PLAYER Reason for Visit * Gastrointestinal (Routine) - ClosedSpecialtyDiagnoses / ProceduresReferred By ContactReferred To Contact Diagnoses Pseudocyst Pancreas Pancreatitis Acute (HCC) Procedures Upper Endoscopic Ultrasound (EUS) Jackeline Dao M.B.B.S., M.S. [address] [place] [address] Phone: tel: fax: [facility] Referral IDStatusReasonStart DateExpiration DateVisits RequestedVisits [id number] Encounter Details DateTypeDepartmentCare Team (Latest Contact Info)Osasafvtirk86/05/2025 9:48 AM PUBLIC RELATIONS PLAYER - 09/21/2025 9:55 AM CSTHospital Encounter Division of Gastroenterology in [place], [place] [address] [place] [phone] Jackeline Dao M.B.B.S., M.S. [address] [place] [phone] Ronen Garcia M.D. [address] [place] [phone] Pseudocyst Pancreas; Pancreatitis Acute (HCC) [K85.90] Discharge Disposition: Home or Self Care Social History Tobacco UseTypesPacks/DayYears UsedDateSmoking Tobacco: DpuyhdJsgxwwzafm891.5 Started: 03/18/1981Smokeless Tobacco: NeverAlcohol UseStandard Drinks/Week CommentsNot Currently0 (1 standard drink = 0.6 oz pure alcohol)Used to drink five to 6 drinks a weekHumiliation, Afraid, Rape, and Kick questionnaireAnswer Date RecordedWithin the last year, have you been afraid of your partner or ex-partner?No01/03/2024Within the last year, have you been humiliated or emotionally abused in other ways by your partner or ex-partner?No01/03/2024 Within the last year, have you been kicked, hit, slapped, or otherwise physically hurt by your partner or ex-partner?No01/03/2024Within the last year, have you been raped or forced to have any kind of sexual activity by your part ner or ex-partner?No01/03/2024Hunger Vital SignAnswerDate RecordedWithin the past 12 months, you worried that your food would run out before you got the money to buymore.Never true07/04/2025Within the past 12 months, the food you bought just didn't last and you didn't have money to get more.Never true 07/04/2025PRAPARE - TransportationAnswerDate RecordedIn the past 12 months, has lack of transportation kept you from medical appointments or from getting medications?No07/04/2025In the past 12 months, has lack of transportation kept you from meetings, work, or from getting things needed for daily living?No 07/04/2025HC UtilitiesAnswerDate RecordedIn the past 12 months has the electric, gas, oil, or water company threatened to shut off services in your home?No07/04/2025Housing StabilityAnswerDate RecordedWhat is your living situation today?I have a steady place to live07/04/2025Sex and Gender InformationValueDate RecordedSex Assigned at LqdisEgdc79/17/2025 12:26 PM CDT Legal SkuUgkb0211/20/2016 9:23 AM CSTGender OqxxhpnoHntj75/17/2025 12:26 PM CDT Sexual CljosxbtmoiMokawkcs64/17/2025 12:26 PM CDTdocumented as of this encounter Functional Status * Patient VerificationQuestionAnswerDate of AssessmentAuthorBlood transfusion or in past 5 months?No09/21/2025 10:02 AM Demi Obrien REdmundoN. * Obstructive Sleep Apnea ScreenQuestionAnswerDate of AssessmentAuthorPatient has a diagnosis of obstructive sleep apnea? 10:02 AM Demi Obrien R.N. * Advanced DirectiveQuestionAnswerDate of AssessmentAuthorAdvance Directive Patient does not have advance directive, does not want kwkxfflyjye76/05/2025 10:04 AM Demi Obrien REdmundoN. * Assistive DevicesQuestionAnswerDate of AssessmentAuthorAssistive Devices Izjtbbdkwr77/05/2025 10:02 AM Demi Obrien R.N. * NPOQuestionAnswerDate of AssessmentAuthorTime of last dpauwk9635130/05/2025 10:02 AM Demi Obrien R.N.Date of last nilqjg6214790/05/2025 10:02 AM Demi Obrien R.N.Date of last rhbrm1731401/05/2025 10:02 AM Demi Obrien R.N.Time of last ymsez7913904/05/2025 10:02 AM Demi Obrien R.N. * Tobacco useQuestionAnswerDate of AssessmentAuthorHave you smoked any form of tobacco today?Yes09/21/2025 10:02 AM Demi Obrien R.N.Have you smoked any form of tobacco in the last 30 days?Yes09/21/2025 10:02 AM Demi Obrien R.N. * STOP-BANG QuestionnaireQuestionAnswerDate of AssessmentAuthorDo you snore loudly (loud enough to be heard through closed doors or your bed-partner elbows you for snoring at night)? 10:02 AM Demi Obrien R.N. Do you often feel tired, fatigued, or sleepy during the daytime (such as falling asleep during driving or talking to someone)? 10:02 AM Demi Bhagat R.N.Has anyone observed you stop breathing or choking/gasping during your sleep? 10:02 AM Demi Obrien R.N.Do you have or are being treated for high blood pressure? 10:02 AM Demi Obrien R.N.Body Mass Index more than 35 kg/m2? 10:02 AM Demi Bhagat R.N.Age older than 50? 10:02 AM Demi Obrien R.N.Is your shirt collar 16 inches/40cm or larger? 10:02 AM Demi Bhagat R.N.Gender = Male? 10:02 AM Demi Obrien R.N.STOP-BANG Total Klmvy07711/22/2024 10:02 AM Demi Obrien R.N. * Modified [place] ScoreQuestionAnswerDate of AssessmentAuthorMotor Activity2 09/21/2025 11:56 AM Sallie Browne R.N., C.P.A.N.Vumyemwwgyt012/05/2025 11:56 AM Sallie Browne R.N., C.P.A.N.Cytlxcltazdfy917/05/2025 11:56 AM Sallie Browne R.N., C.P.A.N.Oxygen Soayhqnnwv709/05/2025 11:56 AM Sallie Browne R.N., C.P.A.N.Modified [place] Yhyrj1567/05/2025 11:56 AM Sallie Browne R.N., C.P.A.N.Systolic BP 11:56 AM Sallie Browne R.N., C.P.A.N. * Fall RiskQuestionAnswerDate of AssessmentAuthorHave you fallen within the last year or do you fear you might fall?09/21/2025 10:03 AM Demi Obrien R.N.Do you use an assisted device to walk? (Walker, cane, wheelchair, crutch) 09/21/2025 10:03 AM Demi Obrien R.N.Today, do you feel any of the following? Weak, dizzy, shaky, or unsteady?09/21/2025 10:03 AM Demi Obrien R.N.Have you taken any medication within the last 6 hours which may make you feel drowsy? Such as sleep, pain, or anxiety elghidjqwfHd62/05/2025 10:03 AM Demi Obrien R.N. * Additional Fall Risk IndicationQuestionAnswerDate of AssessmentAuthor Clinically assessed at higher fall risk?09/21/2025 10:03 AM Demi Obrien R.N. * Pain AssessmentQuestionAnswerDate of AssessmentAuthorPain Score0 - No pain 09/21/2025 11:49 AM Sallie Browne R.N., C.P.A.N. * [place] Agitation Sedation Scale (RASS)AnswerDate of AssessmentAuthor0 09/21/2025 11:49 AM Sallie Browne R.N., CJose JuanN. * Exparel?? / Zynrelef??QuestionAnswerDate of AssessmentAuthorHave you had a procedure outside of [facility] in the past 4 days? (Select Yes if the patient iswearing an Exparel?? or a Zynrelef?? armband.)No09/21/2025 10:02 AM Demi Obrien R.N. documented as of this encounter Mental Status * [place] Coma ScaleQuestionAnswerEntry DateAuthorEye Rkaictl719/05/2025 10:02 AM Demi Obrien R.N.Best Motor Ptlbjezp433/05/2025 10:02 AM Demi Obrien R.N.Best Verbal Qhpensns693/05/2025 10:02 AM Demi Obrien R.N. [place] Coma Scale Xlnos7156/05/2025 10:02 AM Demi Obrien R.N. documented in this encounter Medications at Time of Discharge MedicationSigDispense QuantityRefillsLast FilledStart DateEnd Date acetaminophen (TYLENOL) 500 mg tablet Take 2 tablets (1,000 mg total) by mouth every 6 (six) hours as needed for pain. 01/06/2024 amoxicillin-pot clavulanate (Augmentin) 875-125 mg per tablet Take 1 tablet by mouth 2 (two) times a day.09/11/2025 sfnmzqhqgejb-hjca-LE (CENTRUM COMPLETE) 18-400 mg-mcg per tablet Take 1 tablet by mouth daily.01/06/2024 omeprazole (PriLOSEC) [address] capsule Take 20 mg by mouth daily before morning meal. oxyCODONE (ROXICODONE) 5 mg immediate release tablet Indications:Acute PainTake 1 tablet (5 mg total) by mouth every 6 (six) hours as needed for severe pain or score 7-10 of 10 Indication: Acute Pain. 5 tablet 01/06/2024 pantoprazole (Protonix) 40 mg EC tablet Take 40 mg by mouth daily before morning meal. pantoprazole (Protonix) 40 mg EC tablet Take 40 mg by mouth daily.05/29/2025 rosuvastatin (CRESTOR) 20 mg tablet Take 1 tablet (20 mg total) by mouth at bedtime. 90 tablet thiamine (VITAMIN B1) 100 mg tablet Take 1 tablet (100 mg total) by mouth daily. 5 tablet 01/06/2024 traMADoL (Ultram) 50 mg tablet Take 1 tablet by mouth every 8 (eight) hours as needed for pain.06/08/2025 traMADoL (Ultram) 50 mg tablet Take 50 mg by mouth.01/09/2025documented as of this encounter Plan of Treatment DateTypeDepartmentCare Team (Latest Contact Info)Pkdglqwmckx85/06/2026 1:40 PM CSTVirtual Visit Division of Gastroenterology in [place], [place] [address] [place] [address] Conchita Ontiveros M.D. 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 - A large 10 cm peripancreatic fluid collection. Successful ? cystgastrostomy with placement of a 15 x 10 mm lumen-apposing metal ? stent as described. A coaxial 7 Persian by 7 cm double pigtail stent was ? placed into the cavity. ? - Lobular pancreatic parenchyma with hyperechoic duct wall suggestive of ? chronic pancreatitis. Narrative 09/21/2025 11:03 AM PUBLIC RELATIONS PLAYER [place] [facility] Patient Name: Polo Oro Date of : 1970 Age: 55 Procedure Date: 09/21/2025 Procedure: ? Upper EUS Providers: ? Ronen Garcia MD, Mary CrossSEdmundo (Fellow) Referring Provider: ?ANTOLIN Garcia Pre-op Diagnoses: ?History of acute pancreatitis with a peripancreatic ? fluid collection. Referred for cystgastrostomy. Recommendation: ? - The patient will be observed post-procedure, until all discharge ? criteria are met. ? - Patient has a contact number available for emergencies. The signs and ? symptoms of potential delayed complications were discussed with the ? patient. Return to normal activities tomorrow. Written discharge ? instructions were provided to the patient. ? - Full liquid diet today, then advance as tolerated to resume previous ? diet. ? - Coca Cola Zero one can a day. ? - Cipro (ciprofloxacin) 500 mg PO BID for 2 weeks. ? - Repeat the upper endoscopic ultrasound/EGD with fluoroscopy in 2 weeks ? for reassessment and likely metal stent removal. ? - Return to referring physician as previously scheduled. Findings: ? ENDOSONOGRAPHIC FINDING: : ? The esophagus, stomach and duodenum were examined endosonographically. ? An anechoic pseudocyst with internal debris was identified in the ? peripancreatic region in the tail of the pancreas. It is not in obvious ? communication with the pancreatic duct. The lesion measured 100 mm by 90 ? mm in maximal cross-sectional diameter. There was a single compartment ? without septae. The outer wall of the lesion was thick. There was no ? associated mass. The decision was made to create a cystogastrostomy ? using the AXIOS stent system. Once an appropriate position in the ? stomach was identified, the common wall between the stomach and the cyst ? was interrogated utilizing color Doppler imaging to identify interposed ? vessels. The AXIOS stent and electrocautery device were introduced ? through the working channel. The AXIOS catheter was advanced to the ? common wall between the stomach and the cyst. Current was applied to the ? cautery tip and then the catheter was advanced into the cyst. A 15 x 10 ? mm AXIOS stent was placed with the flanges in close approximation to the ? batres of the cyst and the stomach through the cystogastrostomy. A ? coaxial 7 Fr X 7 cm double pigtail stent (Respirics) was placed under ? fluoroscopic guidance into the pseudocyst through the lumen-apposing ? metal stent. The stents were in good position. There were spontaneous ? flow of brown liquid with significant decrease in size of the pseudocyst. ? Endosonographic imaging of the pancreas showed sonographic changes ? indicative of mild-moderate chronic pancreatitis in the entire pancreas. ? The parenchyma had lobularity with honeycombing and hyperechoic strands. ? The pancreatic duct had a hyperechoic duct margin. The pancreatic duct ? measured up to 2.5 mm in diameter. ? There was no sign of significant endosonographic abnormality in the ? common bile duct. The maximum diameter of the duct was 4 mm. ? Visualized portions of the liver and gallbladder were normal on ? ultrasound examination. Procedural Details: ? The patient was seen, evaluated, history reviewed, airway and heart-lung ? exams were performed by licensed provider and were satisfactory for ? planned level of sedation care. ? The risks, benefits and alternatives for the procedure and sedation were ? discussed and informed consent was obtained. A procedural pause was ? conducted in the presence of assisting personnel to verify the correct ? patient identity and procedure to be performed. Throughout the ? procedure, the patient's blood pressure, pulse, and oxygen saturations ? were monitored continuously. The Endosonoscope was introduced through ? the mouth, and advanced to the second part of duodenum. The upper EUS ? was accomplished without difficulty. The patient tolerated the procedure ? well. IV Ciprofloxacin was administered during the procedure. The total ? fluoroscopy exposure time was 0.9 minute. Complications: ? No immediate complications. Estimated Blood Loss: ?None Attending Participation: I was present and participated during the entire ? procedure, including non-silva portions. Dr. Ronen Garcia MD 09/21/2025 11:03:42 AM This report has been signed electronically. 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
--- OUTSIDE RECORDS SUMMARY | 2025-09-21 09:55 | XMS_ITS | Encounter Summary ---
Author Organization [facility] Address [address] [place] [address] Care Team Providers Care Rougher For Cement Name Role Phone Unavailable Primary Care Provider Unavailabl e Encounter Details DateTypeDepartmentCare Team (Latest Contact Info)Fcnppqzvzxq38/05/2025 9:55 AM CSTAncillary Procedure Department of Gastroenterology Social History Tobacco UseTypesPacks/DayYears UsedDateSmoking Tobacco: LkghrhBdmftdtvcf616.5 Started: 03/18/1981Smokeless Tobacco: NeverAlcohol UseStandard Drinks/Week CommentsNot [...] live07/04/2025Sex and Gender InformationValueDate RecordedSex Assigned at BjmwkDcjy36/17/2025 12:26 PM CDT Legal MvtQief3811/20/2016 9:23 AM CSTGender EnbxscmhAqcx98/17/2025 12:26 PM CDT Sexual XdfcvfebokkXxkmefui04/17/2025 12:26 PM CDTdocumented as of this encounter Plan of Treatment DateTypeDepartmentCare Team (Latest Contact Info)Ycxphkagnte03/06/2026 1:40 PM CSTVirtual Visit Division of Gastroenterology in [place], [place] [address] [place] [address] Conchita Ontiveros M.D. [address] [place] [address] documented as of this encounter Procedures Procedure NamePriorityDate/TimeAssociated DiagnosisCommentsGASTROENTEROLOGY IMAGE CSUVDkwfkec48/05/2025 9:55 AM SKIVER COUNTER documented in this encounter Results * Upper EUS-Gastroenterology Image Exam (09/21/2025 9:55 AM SKIVER COUNTER)Specimen (Source)Anatomical Location / LateralityCollection Method / VolumeCollection TimeReceived Time09/21/2025 9:53 AM SKIVER COUNTER Narrative IIMS - 09/21/2025 11:12 AM SKIVER COUNTER This order has been created and auto-finalized to support the import of images acquired without order. The clinical documentation to support these images can be found on the encounter that produced images. Authorizing ProviderResult TypeResult StatusProvider Not In SystemIMG NON RAD IMAGING PROCEDURESFinal ResultPerforming OrganizationAddressCity/State/ZIP Code Phone Number IIMS NA documented in this encounter Visit Diagnoses Not on filedocumented in this encounter
--- OUTSIDE RECORDS SUMMARY | 2025-09-21 09:56 | XMS_ITS | Encounter Summary ---
Author Organization [facility] Address [address] [place] [address] Care Team Providers Care Patent Attorney Name Role Phone Unavailable Primary Care Provider Unavailabl e Reason for Referral * Outpatient (Routine) - ClosedSpecialtyDiagnoses / ProceduresReferred By ContactReferred To Contact Diagnoses Pseudocyst Pancreas Pancreatitis Acute (HCC) Procedures FL Fluoro Less Than 1 Hour Jackeline Dao M.B.B.S., M.S. [address] [place] [address] Phone: tel: fax: [facility] Referral IDStatusRemaximilianoStart DateExpiration DateVisits RequestedVisits [id number]/5/20253/7/202711 H FOOD MANAGER Reason for Visit * Outpatient (Routine) - ClosedSpecialtyDiagnoses / ProceduresReferred By ContactReferred To Contact Diagnoses Pseudocyst Pancreas Pancreatitis Acute (HCC) Procedures FL Fluoro Less Than 1 Hour Jackeline Dao M.B.BEdmundoS., M.S. [address] [place] [address] Phone: tel: fax: [facility] Referral IDStatusReasonStart DateExpiration DateVisits RequestedVisits [id number]/5/26361/7/[id number] Encounter Details DateTypeDepartmentCare Team (Latest Contact Info)Gvgaznesdpi19/05/2025 9:56 AM FRESH FOOD MANAGER - 09/21/2025 11:59 PM CSTHospital Encounter Department of Radiology, [facility], in [place], [place] [address] [place] [address] Jackeline Dao M.B.B.S., M.S. [address] [place] [phone] Pseudocyst Pancreas; Pancreatitis Acute (HCC) [K85.90]; Pancreatitis Acute (HCC) Discharge Disposition: Home or Self Care Social History Tobacco UseTypesPacks/DayYears UsedDateSmoking Tobacco: BwvjuiTwmxtjpqic648.5 Started: 03/18/1981Smokeless Tobacco: NeverAlcohol UseStandard Drinks/Week CommentsNot [...] live07/04/2025Sex and Gender InformationValueDate RecordedSex Assigned at HuadcLkxv87/17/2025 12:26 PM CDT Legal IsaMxzu1711/20/2016 9:23 AM CSTGender RuhspjqhPqgo45/17/2025 12:26 PM CDT Sexual LnourqganmuSviglvcm08/17/2025 12:26 PM CDTdocumented as of this encounter Medications at Time of Discharge MedicationSigDispense QuantityRefillsLast FilledStart DateEnd Date acetaminophen (TYLENOL) 500 mg tablet Take 2 tablets (1,000 mg total) by mouth every 6 (six) hours as needed for pain. 01/06/2024 amoxicillin-pot clavulanate (Augmentin) 875-125 mg per tablet Take 1 tablet by mouth 2 (two) times a day.09/11/2025 ijxakkpsprsw-vlyp-ZY (CENTRUM COMPLETE) 18-400 mg-mcg per tablet Take [...] 50 mg tablet Take 50 mg by mouth.01/09/2025 ciprofloxacin (Cipro) 500 mg tablet Indications:Pseudocyst PancreasTake 1 tablet (500 mg total) by mouth 2 (two) times a day for 14 days. 28 tablet 09/21/2025 12:18 PM CSTdocumented as of this encounter Plan of Treatment DateTypeDepartmentCare Team (Latest Contact Info)Dbjdcdlmcbn94/06/2026 1:40 PM CSTVirtual Visit Division of Gastroenterology in [place], [place] [address] [place] [address] Conchita Ontiveros M.D. [address] [place] [address] documented as of this encounter Procedures Procedure NamePriorityDate/TimeAssociated DiagnosisCommentsFL FLUORO LESS THAN 1 HOURRAD - Routine (most inpatients and all outpatients)09/21/2025 10:52 AM FRESH FOOD MANAGER Pseudocyst Pancreas Pancreatitis Acute (HCC) documented in this encounter Results * FL Fluoro Less Than 1 Hour (09/21/2025 10:52 AM FRESH FOOD MANAGER)Specimen (Source) Anatomical Location / LateralityCollection Method / VolumeCollection Time Received Time Narrative ERCP LOS RST - 09/21/2025 10:52 AM FRESH FOOD MANAGER This exam does not require a radiologist review or interpretation. Please refer to the patient's medical record on this date for clinical details. 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
--- OUTSIDE RECORDS SUMMARY | 2025-09-21 10:13 | XMS_ITS | Encounter Summary ---
Author Organization [facility] Address [address] [place] [address] Care Team Providers Care Major Gifts Manager Name Role Phone Unavailable Primary Care Provider Unavailabl e Encounter Details DateTypeDepartmentCare Team (Latest Contact Info)Sucgmbwitbs99/05/2025 10:13 AM CSTAnesthesia Event Division of Gastroenterology in [place], [place] [address] [place] [phone] Nemo Pulido APRN, CRNA, D.N.P. [address] [place] [phone] Sandy Cabral M.D. [address] [place] [phone] Anesthesia Record Procedure NameResponsible AnesthesiologistAnesthesia Start TimeAnesthesia Stop TimeUPPER ENDOSCOPIC ULTRASOUND (EUS)Nemo Pulido APRN, CRNA, D.N.P. 09/21/25 50600211/22/24 9338KheyZtbhFxjmjVbdpvnm66/05/335264279462Bg Start Machine/Equipment Checked Infection Precautions Followed Procedure/Site Verified NPO Status Verified Supine Standard ASA Monitors Ufrcvwb5732Pb Xczsomtpk4172Cr Beflrvgpof6334Ldqvkwoy to Cwdefvsopjwar6847Zyqb Cnmaq4157Aurn Gic8502Mnxxcnny to ANE Uiiak7889Nrzibz Removal Criteria Gia6388Aaqbykfdca/Airway Fqpsurv7998iy stop gagt9996Wz EndI completed my handoff to the receiving staff during which we 1. Identified the patient 2. Identified the responsible provider 3. Reviewed the pertinent medical history 4. Discussed the surgical course 5. Reviewed intra-op anesthesia management and issues during anesthesia 6. Set expectations for post- procedure period 7. Allowed opportunity for questions and acknowledgement of understanding.* NameTotalfentanyl injection 50 mcg/mL100 mcglidocaine 2% (mg) zoaqumyzq70 mgsuccinylcholine 20 mg/mL mgondansetron 4 mg/2 mL injection4 mgpropofol 10 mg/mL eomydqgl129.05 mgpropofol 10 mg/mL anqskehsg878 mgciprofloxacin (Cipro) IVPB 400 mg in D5W 200 mL (premix)400 mgLactated Ringers Free Dfka639 mL * Agents No agents on file. * Blood No blood administrations on file. TypeDetailsPlacementRemovalPeripheral IVPlacement Date: 09/21/25; Placement Time: 1003; Catheter Size: 20 G; Orientation: Right; Location: Antecubital; Removal Date: 09/21/25; Removal Time: 1150; Removal Reason: Completion of qjfmufp03/05/25 1003 by Demi Sellers RTa09/21/25 1150 by Sallie Puentes R.N., C.P.A.N.ETTPlacement Date: 09/21/25; Placement Time: 102 (created via procedure documentation); Mask Ventilation: Easy mask; Technique: Video laryngoscopy; Type: Standard ETT; Single Lumen Tube Size: 7 mm; Cuffed: Yes; Location: Oral; Grade View: Grade 1; Insertion Attempts: 1; Placement Verification: Bilateral breath sounds, Positive ETCO2, Symmetrical chest wall movement; Removal Date: 09/21/25; Removal Time: 1023 by Nemo Pulido APRN, CRNA, D.N.P.09/21/25 1051 by Nemo Pulido APRN, CRNA, D.N.P.documented in this encounter Social History Tobacco UseTypesPacks/DayYears UsedDateSmoking Tobacco: KptfpyKcnebhookf913.5 Started: 03/18/1981Smokeless Tobacco: NeverAlcohol UseStandard Drinks/Week CommentsNot [...] live07/04/2025Sex and Gender InformationValueDate RecordedSex Assigned at SxgxtZrfg38/17/2025 12:26 PM CDT Legal LrmUlua6111/20/2016 9:23 AM CSTGender DcpjhwsmRhai13/17/2025 12:26 PM CDT Sexual IxwbbxkcyplAlhbhieo73/17/2025 12:26 PM CDTdocumented as of this encounter OR Notes * Anesthesia Postprocedure Evaluation - Nemo Pulido APRN, CRM MARKETING MANAGER, D.N.P. - 09/21/2025 11:00 AMCST Patient: Polo Oro Procedure Summary Date: 09/21/25 Room / Location: Division of Gastroenterology in [place], [place] Anesthesia Start: 1013 Anesthesia Stop: 1100 Procedure: UPPER ENDOSCOPIC ULTRASOUND (EUS) Diagnosis: Pseudocyst Pancreas Pancreatitis Acute (HCC) Scheduled Providers: Ronen Garcia M.D. Responsible Provider: Nemo Pulido APRN, CRNA, D.N.P. Anesthesia Type: general ASA Status: 2 Anesthesia Type: general Last vitals Vitals Value Taken Time BP 130/82 09/21/25 10:56 Temp 36.5 ??C 09/21/25 10:04 Pulse 84 09/21/25 11:00 Resp 15 09/21/25 11:00 SpO2 97 % 09/21/25 11:00 Vitals shown include unfiled device data. Please reference Vitals flowsheet for most recent vital signs. Anesthesia Post Evaluation Patient Disposition: dismissal Cardiovascular status: hemodynamics (HR & BP) acceptable Respiratory status: patent airway with spontaneous effort Temperature: normothermic Oxygen requirements: room air Level of consciousness: awake Pain score: pain adequately controlled and/or at baseline Post Op nausea/vomiting: none Hydration status: euvolemic Notable Events No notable events documented. GER ATHLETICS * Anesthesia Procedure Notes - Nemo Pulido APRN, CRNA, D.N.P. - 09/21/2025 10:30 AM CSTAssociated Order(s): Airway Airway Date/Time: 09/21/2025 10:23 AM Performed by: Nemo Pulido APRN, CRNA, D.N.P. Authorized by: Nemo Pulido APRN, CRNA, D.N.P. Patient location during procedure: OR / Procedure Area PROCEDURE DETAILS: Mask difficulty assessment: easy mask Final airway type: video laryngoscope Laryngeal Manipulation: no Final best view of glottic structures - Cormack/Lehane Score: grade 1 ETT location: oral VL device: glide scope War scope blade size: 3 Tube size: 7 ETT distance at teeth/gum: 23 Oral tube type: standard ETT Cuffed: yes Number of attempt to successful placement: 1 Airway confirmation: bilateral breath sounds, positive ETCO2 and bilateral chest rise Other previous techniques attempted: none PRE PROCEDURE DETAILS: Pre evaluation for airway management: procedure Urgency: elective Preop assessment of probable difficulty: no difficulty anticipated Preoxygenation: bag valve mask SEDATION / ANESTHESIA Anesthesia method: anesthesia POST PROCEDURE DETAILS: Procedure outcome: successful Notable Events: no complications GER ATHLETICS * Anesthesia Preprocedure Evaluation - Sandy Cabral M.D. - 09/21/2025 10:08 AM CST Preprocedure Anesthesia & H&P Assessment Procedure Summary Date/Time: 09/21/25 1215 Scheduled providers: Ronen Garcia M.D. 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 Present illness and pre-op diagnosis were confirmed. The planned surgery / procedure was verified with the patient / legal guardian. The patient's general health condition remains unchanged RELEVANT COMORBID CONDITIONS Other (+) Nicotine Dependence Unspecified OBJECTIVE PHYSICAL EXAMINATION Airway (HEENT) Mallampati: I TM Distance: >3 FB Neck ROM: Full Mouth Opening: >3 cm Upper Lip Bite Test Class: I Cardiovascular Rhythm: Regular Rate: Normal Cardiovascular Assessment: cardiovascular normal Functional Capacity: >4 METS Pulmonary Pulmonary Assessment: Clear General / Constitutional Constitutional Assessment: Normal General State of Health:: healthy appearing and calm ASSESSMENT / PLAN ANESTHESIA PLAN ASA: 2 Anesthesia Plan: general Acute pancreatitis and pancreatic pseudocyst; smoker. No airway documents here. GETA per proceduralist request. Patient seen and allergies reviewed, anesthesia plan and risks discussed directly with patient /legal guardian or through an hourly sign language interpreter. The use of blood products not discussed Approval to Proceed: approved for anesthesia GER ATHLETICS documented in this encounter Plan of Treatment DateTypeDepartmentCare Team (Latest Contact Info)Smydhfishoo16/06/2026 1:40 PM CSTVirtual Visit Division of Gastroenterology in [place], [place] [address] [place] [phone] Conchita Ontiveros M.D. [address] [place] [phone] documented as of this encounter Procedures Procedure NamePriorityDate/TimeAssociated DiagnosisCommentsLDA ANE ENDOTRACHEAL WMQMRHPdelmyp04/05/2025 10:23 AM MANAGER ATHLETICS documented in this encounter Results * LDA ANE ENDOTRACHEAL AIRWAY (09/21/2025 10:23 AM MANAGER ATHLETICS) Narrative Nemo Pulido APRN, CRNA, D.N.P. - 09/21/2025 10:23 AM MANAGER ATHLETICS Nemo Pulido APRN, CRNA, D.N.P. 09/21/2025 10:32 AM Airway Date/Time: 09/21/2025 10:23 AM Performed by: Nemo Pulido APRN, CRNA, D.N.P. Authorized by: Nemo Pulido APRN, CRNA, D.N.P. ?? Patient location during procedure: OR / Procedure Area PROCEDURE DETAILS: Mask difficulty assessment: easy mask Final airway type: video laryngoscope Laryngeal Manipulation: no ?? Final best view of glottic structures - Cormack/Lehane Score: grade 1 ETT location: oral VL device: glide scope War scope blade size: 3 Tube size: 7 ETT distance at teeth/gum: 23 Oral tube type: standard ETT Cuffed: yes Number of attempt to successful placement: 1 Airway confirmation: bilateral breath sounds, positive ETCO2 and bilateral chest rise Other previous techniques attempted: none PRE PROCEDURE DETAILS: Pre evaluation for airway management: procedure Urgency: elective Preop assessment of probable difficulty: no difficulty anticipated Preoxygenation: bag valve mask SEDATION / ANESTHESIA Anesthesia method: anesthesia POST PROCEDURE DETAILS: ? Procedure outcome: successful ?? Notable Events: no complications Authorizing ProviderResult TypeResult StatusNemo Pulido APRN CRM MARKETING MANAGER, D.N.P.ANESTHESIA ORDERABLESFinal Result documented in this encounter Visit Diagnoses Not on filedocumented in this encounter Administered Medications Medication OrderMAR ActionAction DateDoseRateSite ciprofloxacin in D5W IVPB (Cipro) intravenous, Administer over 60 Minutes, As needed, Starting on Wed09/21/25 at 1032, Anesthesia Intra-op Given09/21/2025 10:32 AM KON591 mg fentaNYL injection (Sublimaze) intravenous, As needed, Starting on Wed09/21/25 at 1020, Anesthesia Intra-op Given09/21/2025 10:20 AM IZG282 mcg Lactated Ringer's intravenous, Continuous Infusion: Per Instructions PRN, Starting on Wed09/21/25 at 1013, AnesthesiaIntra-op New Bag09/21/2025 10:13 AM MANAGER ATHLETICS lidocaine (PF) (cardiac) injection intravenous, As needed, Starting on Wed09/21/25 at 1020, Anesthesia Intra-op Given09/21/2025 10:20 AM CST80 mg ondansetron (PF) injection (Zofran) intravenous, As needed, Starting on Wed09/21/25 at 1017, Anesthesia Intra-op Given09/21/2025 10:17 AM CST4 mg propofol 10 mg/mL infusion (Diprivan) intravenous, Continuous Infusion: Per Instructions PRN, Starting on Wed09/21/25 at 1020, AnesthesiaIntra-op Rate/Dose Wyypev1209/21/2025 10:34 AM QPF178 mcg/kg/min84.36 mL/hrNew Bag 09/21/2025 10:20 AM KIB542 mcg/kg/min63.27 mL/hr propofoL injection (Diprivan) intravenous, As needed, Starting on Wed09/21/25 at 1020, Anesthesia Intra-op Given09/21/2025 10:20 AM GLA385 mg succinylcholine (PF) injection (Anectine) intravenous, As needed, Starting on Wed09/21/25 at 1021, Anesthesia Intra-op Given09/21/2025 10:21 AM CST80 mgdocumented in this encounter
--- OUTSIDE RECORDS SUMMARY | 2025-10-17 12:17 | XMS_ITS | Encounter Summary ---
Author Organization [facility] Address [address] [place] [address] Care Team Providers Care Architectural Representative Name Role Phone Unavailable Primary Care Provider Unavailabl e Reason for Referral * MRI/CAT/PET Scan (Routine) - ClosedSpecialtyDiagnoses / ProceduresReferred By ContactReferred To ContactRadiology Diagnoses Pseudocyst Pancreas Procedures CT Abdomen Pelvis with IV Contrast Conhcita Ontiveros M.D. [address] [place] [phone] Phone: tel: fax: [facility] Referral IDStatusReasonStart DateExpiration DateVisits RequestedVisits [id number]/13/20251/13/202711 SIT CLERK Reason for Visit * MRI/CAT/PET Scan (Routine) - ClosedSpecialtyDiagnoses / ProceduresReferred By ContactReferred To ContactRadiology Diagnoses Pseudocyst Pancreas Procedures CT Abdomen Pelvis with IV Contrast Conchita Ontiveros M.D. [address] [place] [phone] Phone: tel: fax: [facility] Referral IDStatusReasonStart DateExpiration DateVisits RequestedVisits [id number]/13/20251/13/202711 Encounter Details DateTypeDepartmentCare Team (Latest Contact Info)Iljoybohkgp52/31/2025 12:17 PM CSTHospital Encounter Department of Radiology, [facility], in [place], [place] [address] [place] [address] Conchita Ontiveros M.D. [address] [place] [address] Pseudocyst Pancreas Social History Tobacco UseTypesPacks/DayYears UsedDateSmoking Tobacco: BxfuufLsfdyereen118.5 Started: 03/18/1981Smokeless Tobacco: NeverAlcohol UseStandard Drinks/Week CommentsNot Currently0 (1 standard drink = 0.6 oz pure alcohol)Used to drink five to 6 drinks a weekHumiliation, Afraid, Rape, and Kick questionnaireAnswer Date RecordedWithin the last year, have you been afraid of your partner or ex-partner?No01/03/2024Within the last year, have you been humiliated or emotionally abused in other ways by your partner or ex-partner?01/03/2024 Within the last year, have you been kicked, hit, slapped, or otherwise physically hurt by your partner or ex-partner?01/03/2024Within the last year, have you been raped or forced to have any kind of sexual activity by your part ner or ex-partner?01/03/2024Hunger Vital SignAnswerDate RecordedWithin the past 12 months, [...] threatened to shut off services in your home?07/04/2025Housing StabilityAnswerDate RecordedWhat is your living situation today?I have a steady place to live07/04/2025Sex and Gender InformationValueDate RecordedSex Assigned at LfpuyMmrv80/17/2025 12:26 PM CDT Legal FiiOllk3111/20/2016 9:23 AM CSTGender HajnolmbKzis33/17/2025 12:26 PM CDT Sexual VzstlmksqceTqcptaea43/17/2025 12:26 PM CDTdocumented as of this encounter Plan of Treatment DateTypeDepartmentCare Team (Latest Contact Info)Yjlqipvohko31/06/2026 1:40 PM CSTVirtual Visit Division of Gastroenterology in [place], [place] [address] [place] [phone] Conchita Ontiveros M.D. [address] [place] [phone] documented as of this encounter Procedures Procedure NamePriorityDate/TimeAssociated DiagnosisCommentsCT ABDOMEN PELVIS WITH IV CONTRASTRAD - Routine (most inpatients and all outpatients)10/17/2025 1:31 PM DEPOSIT CLERK Pseudocyst Pancreas documented in this encounter Results * CT Abdomen Pelvis with IV Contrast (10/17/2025 1:31 PM DEPOSIT CLERK)Anatomical Region LateralityModalityAbdomen, Pelvis, Abdominal RST LOS, Abdominal ARZ LOS, Abdominal FLA LOSN/AComputed Tomography, Computed TomographySpecimen (Source) Anatomical Location / LateralityCollection Method / VolumeCollection Time Received Time10/17/2025 1:21 PM DEPOSIT CLERK Impressions 10/17/2025 2:59 PM DEPOSIT CLERK 1. Status post cystogastrostomy stents placement with near complete resolution of the peripancreatic pseudocyst with only residual trace amount of fluid. 2. ??Unchanged appearance of the uncoiled splenic artery embolization coil with migration into pancreatic tail parenchyma/ductal. 3. ??Incidental segmental pulmonary thromboembolism in the bilateral lower lobes. Findings were discussed with Dr. Rachel on 10/17/2025 at 2:55 PM Narrative 10/17/2025 2:59 PM DEPOSIT CLERK EXAM: CT ABDOMEN PELVIS WITH IV CONTRAST COMPARISON: ??07/29/2025 FINDINGS: Nonocclusive pulmonary thromboembolism in the left lower lobe and the right lower lobe (series 4 image 11 and image 14). Patient is status post cystogastrostomy stent placement with coaxial plastic stents. Near complete resolution of the peripancreatic stent with only residual trace fluid and soft tissue stranding nearthe pancreatic tail and splenic hilum. Sequelae of splenic infarct. Redemonstration of the uncoiling of splenic artery embolization coils with one coil migrating into pancreatic parenchyma/duct. Unremarkable liver, adrenals, kidneys, and bowel. ??Focal narrowing of the splenic vein near the hilum with some collaterals. Procedure Note Tisha Torres M.D. - 10/17/2025 EXAM: CT ABDOMEN PELVIS WITH IV CONTRAST COMPARISON: 07/29/2025 FINDINGS: Nonocclusive pulmonary thromboembolism in the left lower lobe and theright lower lobe (series 4 image 11 and image 14). Patient is status post cystogastrostomy stent placement with coaxialplastic stents. Near complete resolution of the peripancreatic stent withonly residual trace fluid and soft tissue stranding near the pancreatictail and splenic hilum. Sequelae of splenic infarct. Redemonstration of the uncoiling of splenicartery embolization coils with one coil migrating into pancreaticparenchyma/duct. Unremarkable liver, adrenals, kidneys, and bowel. Focal narrowing of thesplenic vein near the hilum with some collaterals. IMPRESSION: 1. Status post cystogastrostomy stents placement with near completeresolution of the peripancreatic pseudocyst with only residual traceamount of fluid. 2. Unchanged appearance of the uncoiled splenic artery embolization coilwith migration into pancreatic tail parenchyma/ductal. 3. Incidental segmental pulmonary thromboembolism in the bilateral lowerlobes. Findings were discussed with Dr. Rachel on 10/17/2025 at 2:55 PM Authorizing ProviderResult TypeResult StatusHanrupinder TOMPKINS CT PROCEDURESFinal Result documented in this encounter Visit Diagnoses Diagnosis Pseudocyst Pancreas documented in this encounter Administered Medications Medication OrderMAR ActionAction DateDoseRateSite iohexoL 300 mg iodine/mL solution 1-200 mL (Omnipaque) 1-200 mL, intravenous, Once in imaging, contrast, Starting on Wed10/17/25 at 1307, For 1 dose, Imaging Protocol Orders, Dose per Radiant Medication Guidelines Given10/17/2025 1:07 PM MFV204 mL sodium chloride (PF) 0.9 % injection 1-100 mL 1-100 mL, intravenous, Once, On Wed10/17/25 at 1330, For 1 dose, Imaging Protocol Orders, Dose perRadiant Medication Guidelines Given10/17/2025 1:07 PM CST50 mLdocumented in this encounter
--- OUTSIDE RECORDS SUMMARY | 2025-10-17 15:33 | XMS_ITS | Clinical Summary ---
Author Organization [employer] [facility] Address [address] [place] [address] Care Team Providers Care Destaticizer Feeder Name Role Phone Eleno Vines MD Primary Care Provider [phone] Allergies Active AllergyReactionsCriticalityNoted RpysQydyxsuxJgiiaageAgtxyeuJhl19/23/2007 Feels like poison octavio PeanutOther - Describe In Comment Field11/15/2019 Itching mouth Medications MedicationSigDispense QuantityRefillsLast FilledStart DateEnd DateStatus lithium carbonate (LITHOBID) 300 mg Controlled-Release tablet 10/26/2019Active valACYclovir (VALTREX) 1 gram tablet Indications:HSV (herpes simplex virus) infectionTake 1 tablet by mouth once daily. 30 tablet ctive Additional Information Patient not taking.Reported on 06/07/2025 terbinafine HCL (LamISIL) 250 mg tablet Indications:Tinea pedis of both feet,Dermatophytosis of nailTake 1 Tablet (250 mg) by mouth once daily. 90 Tablet 12/31/2020ctive nicotine 21 mg/24 hr (NICODERM; HABITROL) 21 mg/24 hr patch Indications:Smoking greater than 40 pack yearsApply 1 Patch on dry, clean, hairless skin once daily. 30 Patch ctive Additional Information Patient not taking.Reported on 06/07/2025 cabergoline (DOSTINEX) 0.5 mg tablet Indications:Delayed ejaculationTake 0.5 mg by mouth every Wednesday and . 14 Tablet 2Active Additional Information Patient not taking.Reported on 06/07/2025 testosterone enanthate (Xyosted) 75 mg/0.5 mL atIn Indications:Hypogonadism in maleInject 75 mg subcutaneous once weekly. 4 Each 2Active Additional Information Patient not taking.Reported on 06/07/2025 ammonium lactate (AmLactin) 12 % lotion Indications:Dry skinApply topically to affected area(s) two times daily. 396 g 5Active pantoprazole (PROTONIX) 40 mg delayed-release tablet Indications:Chest pain, unspecified type,Pancreatic pseudocyst (HC),Gastritis, presence of bleeding unspecified, unspecified chronicity, unspecified gastritis type,ColitisTake 1 Tablet (40 mg) by mouth once daily. 30 Tablet 5Active acetaminophen (TYLENOL EXTRA STRGTH) 500 mg tablet Indications:Acute pancreatitis, unspecified complication status, unspecified pancreatitis type (HC)Take 2 Tablets (1,000 mg) by mouth every 6 hours if needed for Pain. Max acetaminophen dose: 4000mgin 24 hrs. 60 Tablet 5Active ibuprofen (ADVIL; MOTRIN) 600 mg tablet Indications:Acute pancreatitis, unspecified complication status, unspecified pancreatitis type (HC),Pancreatic pseudocyst (HC),Gastritis, presence of bleeding unspecified, unspecified chronicity, unspecified gastritis typeTake 1 Tablet (600 mg) by mouth every 6 hours if needed for Pain. Maximum of 3200 mg in 24 hours. 28 Tablet 5Active ondansetron (ZOFRAN ODT) 4 mg disintegrating tablet Indications:Acute pancreatitis, unspecified complication status, unspecified pancreatitis type (HC),Pancreatic pseudocyst (HC)Place 1 Tablet (4 mg) on the tongue every 8 hours if needed for Nausea/Vomiting. 30 Tablet 5Active Active Problems ProblemNoted DateDiagnosed DateFailed back /04/2011Hyperplastic colon polyp12/29/2010 Overview (12/29/2010): Colonoscopy 12/2010 polyp repeat in 10 years LESLIE 06/2009 AHI- 9, supine 221/04/2009Degeneration of cervical intervertebral disc06/26/2009Lumbar Disk Injury, 2007 Umrdtzuzvf32/09/2009Tobacco use disorder 12/13/2007Genital herpes, /26/2650Pnaahqm88/18/2007Unspecified episodic mood eoylrgip03/29/2007 Immunizations ImmunizationAdministration DatesNext JrvEYlA3603/12/1976Polio Virus, Unspecified 03/12/1976Td (Age >=7 Years)08/24/2000Tdap1,08/14/2010 Family History * Patient is adopted Medical HistoryRelationNameCommentsOtherDaughter 2gallstones, s/p cholecystectomyUnknownFatherGood HealthMotherGood HealthSon 2RelationNameStatus CommentsDaughter 1AliveDaughter 2FatherOtherunknownMotherAliveSon 1AliveSon 2 Social History Tobacco UseTypesPacks/DayYears UsedDateSmoking Tobacco: Every JzqHwgayajiyq854 Smokeless Tobacco: Never Tobacco Cessation:Ready to Q uit: Yes; Counseling Given: Yes Comments:Has tried many ways to quit Alcohol UseStandard Drinks/WeekCommentsYes0 (1 standard drink = 0.6 oz pure alcohol)2 drinks 4 days/weekInterpersonal SafetyAnswerDate RecordedAre you being hit, kicked, pushed or yelled at (see row info)?No05/29/2025Interpersonal Safety Abuse 12 - 18Not on file05/29/2025Interpersonal Safety Ambulatory Vulnerability Not on file05/29/2025Sex and Gender InformationValueDate RecordedSex Assigned at BirthNot on fileLegal CplPurk4410/31/2012 5:26 AM CSTGender IdentityNot on file Sexual OrientationNot on fileOccupationIndustryJob Start DateJob End DateNot on fileNot on fileNot on fileNot on file Last Filed Vital Signs Vital SignReadingTime TakenCommentsBlood Vtyrhbvs508/7906/07/2025 1:42 PM CDT Kijqe073706/07/2025 1:42 PM ILDMmyezdcfkok78.6 ??C (97.8 ??F)05/29/2025 6:53 AM CDTRespiratory Plxj219105/29/2025 6:53 AM CDTOxygen Dcfccnkwjf00%06/07/2025 1:42 PM CDTInhaled Oxygen Concentration--Scypnr05.8 kg (151 lb 9.6 oz)06/07/2025 1:42 PM QWNMpdlpu804.8 cm (5' 10)05/29/2025 6:58 AM CDTBody Mass Index21.75 05/29/2025 6:58 AM CDT Plan of Treatment Health MaintenanceDue DateLast DoneCommentsDepression screening for age 12+ 1982Hepatitis B series for 19+ (1 of 3 - 19+ 3-dose series)1989 Pneumococcal series for age 50+ (1 of 2 - PCV)1989Lipids for age 45-75 MI (ht and wt on same day) for age 18+ Zoster (shingles) series for age 50+ (1 of 2)2020Colonoscopy through age 7503//05/2011Tetanus mizcbsu71/, 08/14/2010, 08/24/2000COVID-19 vaccine series ( - 2024- season)2025Influenza Vaccine (#1)2025RSV vaccine for adults or (1 - 1-dose 75+ series)2045HIV for age 15-90Vjwlcurmf83/04/2008Hepatitis C screening for age 18-64Hhvpkenrf92/04/2008 Procedures Procedure NamePriorityDate/TimeAssociated DiagnosisCommentsLIPID PANELRoutine 02/07/2009 8:15 AM CDT Lipid Screening EXPOSURE (BBF) RAPID ZHTNinwkic28/04/2008 3:20 PM REVERSE LOGISTICS ANALYST Accidental Puncture or Laceration During a Procedure EXPOSURE (BBF) ANTI BPTIugdiiz49/04/2008 3:20 PM REVERSE LOGISTICS ANALYST Accidental Puncture or Laceration During a Procedure from Last 3 Months or Most Recently Relevant to Health Maintenance Results * (ABNORMAL) LIPID PANEL (02/07/2009 8:15 AM CDT)ComponentValueRef RangeTest MethodAnalysis TimePerformed AtPathologist SignatureCHOLESTEROL,SNRKJ088(H)110 - 199 mg/dLNORIDGEVIEW SIBLEY [facility] PRDNIFDAIFFFPFNY411(H)<150 mg/dLNORIDGEVIEW SIBLEY MEDICAL CENTER LAB HDL GGWUTJCWCPN15(L)>40 mg/dLNORIDGEVIEW SIBLEY MEDICAL CENTER LABCHOL/HDL RATIO5.47(H)<4.51 [facility] LABLDL CHOLESTEROLInvalid LDL when Trig >400.[facility] PATIENT STATUSFastingNORTPINE REST CH[facility] LABSpecimen (Source)Anatomical Location / LateralityCollection Method / VolumeCollection TimeReceived TimeBlood specimen (specimen)BLOOD SPECIMEN / Fklfeov5402/07/2009 8:15 AM CDT02/07/2009 8:15 AM CDT Narrative Authorizing ProviderResult TypeResult StatusBrandon Lane MDCHEMISTRYFinal ResultPerforming OrganizationAddressCity/State/ZIP CodePhone Number [facility] [address] [place] [address] * PATIENT SOURCE RAPID HIV (09/20/2008 3:20 PM REVERSE LOGISTICS ANALYST)ComponentValueRef RangeTest MethodAnalysis TimePerformed AtPathologist SignatureSOURCE RAPID HIV SCREEN Non-reactive(Nonreactive)[facility] (Source) Anatomical Location / LateralityCollection Method / VolumeCollection Time Received TimeBlood specimen (specimen)BLOOD SPECIMEN / Ywzlgug7909/20/2008 3:20 PM CST09/20/2008 3:13 PM REVERSE LOGISTICS ANALYST Narrative Authorizing ProviderResult TypeResult StatusLee Deal MDSEND OUTS Final ResultPerforming OrganizationAddressCity/State/ZIP CodePhone Number [facility] INTERNAL ZIP [phone] [address] * PATIENT SOURCE ANTI HCV (09/20/2008 3:20 PM REVERSE LOGISTICS ANALYST)ComponentValueRef RangeTest MethodAnalysis TimePerformed AtPathologist SignatureSOURCE ANTI HCV Non-reactiveABSt. Luke's Hospital (Source)Anatomical Location / LateralityCollection Method / VolumeCollection TimeReceived TimeBlood specimen (specimen)BLOOD SPECIMEN / Vloivqv1909/20/2008 3:20 PM CST09/20/2008 3:13 PM REVERSE LOGISTICS ANALYST Narrative Authorizing ProviderResult TypeResult StatusLee Deal MDSEND OUTS Final ResultPerforming OrganizationAddressCity/State/ZIP CodePhone Number [facility] [place]NAL ZIP [address] [address] from Last 3 Months or Most Recently Relevant to Health Maintenance Insurance Advance Directives * Full Code (Latest Code Status on File) Date ActivatedDate DncnjsqjcmoWluwhgte47/9/2010 10:43 AM08/27/2010 2:10 PM * Full Code Date ActivatedDate InactivatedComments11/01/2007 8:49 AM11/02/2007 4:04 PM * Full Code Date ActivatedDate InactivatedComments11/01/2007 6:23 AM11/01/2007 8:49 AM Care Teams Team MemberRelationshipSpecialtyStart DateEnd Date Eleno Vines MD [address] [place] [address] PCP - GeneralInternal Imbkaatu91/25/19
--- OUTSIDE RECORDS SUMMARY | 2025-10-17 15:33 | XMS_ITS | Clinical Summary ---
Author Organization [facility] Address [address] [place] [address] Care Team Providers Care Blasting Entry Specialist Name Role Phone No Ref-Primary, Physician Primary Care Provider Allergies Active AllergyReactionsCriticalityNoted RutcQtnjljbjGodfgsxdXrujxocPyt11/23/2007 Feels like poison octavio Social History Tobacco UseTypesPacks/DayYears UsedDateSmoking Tobacco: Every DayCigarettes Smokeless Tobacco: Never Tobacco Cessation:Ready to Q uit: Not Asked; Counseling Given: Not Answered Alcohol UseStandard Drinks/WeekCommentsYes0 (1 standard drink = 0.6 oz pure alcohol)1 a dayAdolescent EducationAnswerDate RecordedGetting School Help Needed Not on file09/02/2023Sex and Gender InformationValueDate RecordedSex Assigned at BirthNot on fileLegal WciSgky71/04/2012 3:48 AM CSTGender IdentityNot on file Sexual OrientationNot on file Last Filed Vital Signs Vital SignReadingTime TakenCommentsBlood Mwpersyv473/8211 10:50 AM PARENT TRAINER Uilym807309/07/2023 10:50 AM CSTTemperature--Respiratory Bxme229311/07/2022 10:50 AM CSTOxygen Ggssbcuveo56%09/07/2023 10:50 AM CSTInhaled Oxygen Concentration-- Podiah60.3 kg (155 lb)09/07/2023 9:40 AM XETSsaucl118.8 cm (5' 10)09/07/2023 9:40 AM CSTBody Mass Index22.24111/07/2022 9:40 AM PARENT TRAINER Plan of Treatment Health MaintenanceDue DateLast DoneCommentsADVANCE CARE PRBTKVYC1970ANNUAL REVIEW OF HM KWAURD72 1970CT WJSKVSFNOCDW1970DIABETES SCREENING 1970FIT1970FLEX SIG1970DNA (Cologuard)1970YEARLY PREVENTIVE VISIT09/18/19731301VBSRNCAXZMK96/02/1980COLORECTAL CANCER SCREENING 1980HIV MPSEILGHQ71/02/1985HEPATITIS C VNCEVWLWU70/02/1988HEPATITIS B VACCINE (1 of 3 - 19+ 3-dose series)09/18/19892275BQSAZ76/02/2010LUNG CANCER EPEMAHZUH28/02/2020PNEUMOCOCCAL VACCINE 50+ YEARS (1 of 1 - PCV)2020ZOSTER VACCINE (1 of 2)2020PHQ-2 (once per calendar year)2024OVID-19 VACCINE (1 - 2024- season)2025INFLUENZA VACCINE (#1)2025 DTAP/TDAP/TD VACCINE (5 - Td or Tdap)/08/2022, 08/05/2011, 08/14/2010, Additional history existsHPV VACCINE (No Doses Required)Completed MENINGITIS VACCINEAged OutNo longer eligible based on patient's age to complete this topic Insurance * Guarantor: Polo [place] AAccount TypeRelation to PatientDate of BirthPhone Billing AddressPersonal/KinqfvLycv1970 [address] [place] [address] * Guarantor: Polo Oro AAccount TypeRelation to PatientDate of BirthPhone Billing AddressPersonal/DawkcdQequ1970 [address] [place] [address] Care Teams Team MemberRelationshipSpecialtyStart DateEnd Date No Ref-Primary, Physician PCP - Trioamb69/10/23
--- OUTSIDE RECORDS SUMMARY | 2025-10-17 15:33 | XMS_ITS | Encounter Summary ---
Author Organization [facility] Address [address] [place] [address] Care Team Providers Care Director Agency & Strategic Partnerships Name Role Phone Unavailable Primary Care Provider Unavailabl e Encounter Details DateTypeDepartmentCare Team (Latest Contact Info)Tjjqmynsejj27/31/2025 Documentation Division of Gastroenterology in [place], [place] [address] [place] [phone] Michi Rachel M.D. [address] [place] [address] Social History Tobacco UseTypesPacks/DayYears UsedDateSmoking Tobacco: JicnxjAoefbllrdt898.5 Started: 03/18/1981Smokeless Tobacco: NeverAlcohol UseStandard Drinks/Week CommentsNot [...] RecordedIn the past 12 months has the [employer] gas, oil, or water company threatened to shut off services in your home?No07/04/2025Housing StabilityAnswerDate RecordedWhat is your living situation today?I have a steady place to live07/04/2025Sex and Gender InformationValueDate RecordedSex Assigned at JarmqWnzr64/17/2025 12:26 PM CDT Legal PkzIrgb2211/20/2016 9:23 AM CSTGender HzxbxrkiZyhz10/17/2025 12:26 PM CDT Sexual SpkgxpxhyifKnffbmvi67/17/2025 12:26 PM CDTdocumented as of this encounter Progress Notes * Michi Rachel M.D. - 10/17/2025 3:02 PM CST #1 New segmental pulmonary embolism #2 Pancreatic pseudocyst #3 Splenic artery pseudoaneurysm #4 Chronic pancreatitis I received a call from the Radiology team as the GI provider on-call regarding imaging findings of concern. He had a CT abdomen/pelvis completed today in the context of known pancreatic pseudocyst for re-evaluation of that. They noted some new segmental pulmonary emboli that had not been seen on imaging of the chest back in May. I called him to discuss situation. He notes that he was diagnosedwith bronchitis and treated with antibiotics earlier this week and was having significant coughing at that time. This has improved with antibiotics although no imaging was obtained at that time. He has traveled back towards home in his nearly back in [place] now. We discuss that it is somewhat difficult to clarify the true urgency of being evaluated/treated particularly given that he has been feeling better, but that the safest thing to do would be to get imaging of the chest done now so that the pulmonary emboli burden could be evaluated and he could be started on appropriate medications to help manage this. He is planning to present to the emergency department in [place] given that he is now back there to discuss this with them and hopefully get imaging obtained today. I will let his primary GI provider know about the situation. 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 [address] [place] [address] documented as of this encounter Visit Diagnoses Not on filedocumented in this encounter
--- OUTSIDE RECORDS SUMMARY | 2025-10-17 15:33 | XMS_ITS | Clinical Summary ---
Author Organization [facility] Address [address] [place] [address] Care Team Providers Care Supervisor Statement Clerks Name Role Phone Unavailable Primary Care Provider Unavailabl e Source Comments Patient records contain information from all sites at [facility]. For routine questions regarding patient records, call [phone] during business hours, M-F 8:00 AM - 5:00 PM Central Time. Record requests for emergency care only can be directed to [phone] at any time.[facility] Allergies Active AllergyReactionsCriticalityNoted DateCommentsBrazil NutItchingHigh 01/09/2025MorphineItching,Other (see comments),Hives only, no other systemic fxxepdgaUmxr98/23/2007 Feels like poison octavio Tree EkhJigoijw51/09/2025 Medications * This document contains information received from the source organization and may not represent a complete record from that organization. MedicationSigDispense QuantityRefillsLast FilledStart DateEnd DateStatus uuneuirbrgbu-xqth-DH (CENTRUM COMPLETE) 18-400 mg-mcg per tablet Take 1 tablet by mouth daily.01/06/2024ctive acetaminophen (TYLENOL) 500 mg tablet Take 2 tablets (1,000 mg total) by mouth every 6 (six) hours as needed for pain. 01/06/2024ctive rosuvastatin (CRESTOR) 20 mg tablet Take 1 tablet (20 mg total) by mouth at bedtime. 90 tablet ctive Additional Information Patient not taking.Reported on 07/26/2025 thiamine (VITAMIN B1) 100 mg tablet Take 1 tablet (100 mg total) by mouth daily. 5 tablet 03/21/2024Active oxyCODONE (ROXICODONE) 5 mg immediate release tablet Indications:Acute PainTake 1 tablet (5 mg total) by mouth every 6 (six) hours as needed for severe pain or score 7-10 of 10 Indication: Acute Pain. 5 tablet 4Active Additional Information Patient not taking.Reported on 07/26/2025 traMADoL (Ultram) 50 mg tablet Take 1 tablet by mouth every 8 (eight) hours as needed for pain.5Active omeprazole (PriLOSEC) [address] capsule Take 20 mg by mouth daily before morning meal.Active pantoprazole (Protonix) 40 mg EC tablet Take 40 mg by mouth daily before morning meal.Active traMADoL (Ultram) 50 mg tablet Take 50 mg by mouth.5Active pantoprazole (Protonix) 40 mg EC tablet Take 40 mg by mouth daily.5Active amoxicillin-pot clavulanate (Augmentin) 875-125 mg per tablet Take 1 tablet by mouth 2 (two) times a day.5Active ciprofloxacin (Cipro) 500 mg tablet Indications:Pseudocyst PancreasTake 1 tablet (500 mg total) by mouth 2 (two) times a day for 14 days. 28 tablet 09/21/2025 12:18 PM CSTExpired Active Problems ProblemNoted DateDiagnosed DatePancreatitis Acute01/05/2024neurysm Splenic Szofnk4401/05/2024 Overview (01/05/2024): Pseudoaneurysm Postlaminectomy Vczhwpln65/04/2011Polyp Colon12/29/2010 Overview (01/03/2024): Colonoscopy 12/2010 polyp repeat in 10 years Apnea Sleep Rpilsubymgo70/07/2009Degeneration Disc Jqvwsrqc01/09/2009Other Intervertebral Disc Displacement Lumbar Albfkt5906/26/2009Herpes Genitalis 12/13/2007Nicotine Dependence Knsbtnssbsm13/26/2008ffective Vdgaqdjw38/29/2007 Encounters DateTypeDepartmentCare TtnhJmqubhhbqrv76/31/2025 12:17 PM CSTHospital Encounter Department of Radiology, [facility] in [place], [place] [address] [place] [address] Conchita Ontiveros M.D. Pseudocyst Vfvonwlp10/31/2025Documentation Division of Gastroenterology in [place], [place] [address] [place] [phone] Michi Rachel M.D. 09/21/2025 10:13 AM CSTAnesthesia Event Division of Gastroenterology in [place], [place] [address] [place] [phone] Nemo Pulido, ZONIA REY D.N.PSandy Diaz M.D. 09/21/2025 9:56 AM BLOCK TRIMMER - 09/21/2025 11:59 PM CSTHospital Encounter Department of Radiology, [facility] in [place], [place] [address] [place] [address] Jackeline Dao M.B.BMarsha., M.S. Pseudocyst Pancreas; Pancreatitis Acute (HCC) [K85.90]; Pancreatitis Acute (HCC) Discharge Disposition: Home or Self Care09/21/2025 9:55 AM CSTAncillary Procedure Department of Gastroenterology 09/21/2025 9:48 AM BLOCK TRIMMER - 09/21/2025 9:55 AM CSTHospital Encounter Division of Gastroenterology in [place], [place] [address] [place] [address] Jackeline Dao M.B.B.S., M.S. Ronen Garcia M.D. Pseudocyst Pancreas; Pancreatitis Acute (HCC) [K85.90] Discharge Disposition: Home or Self Care09/21/2025Orders Only Division of Gastroenterology in [place], [place] [address] [place] [address] Martina Field P.A.-C. 07/30/2025 9:20 AM CDTComprehensive Visit Division of Gastroenterology in [place], [place] [address] [place] [address] Conchita Ontiveros M.D. Pseudocyst Pancreas (Primary Dx); Nicotine Dependence; Pancreatitis Chronic (HCC); Pancreatitis Acute (HCC)07/29/2025 1:47 PM CDT - 07/29/2025 11:59 PM CDTHospital Encounter Department of Radiology, [facility], in [place], [place] [address] [place] [address] Jackeline Dao M.B.B.S., M.S. Pseudocyst Pancreas; Pancreatitis Acute (HCC) [K85.90] Discharge Disposition: Home or Self Care07/26/2025 10:45 AM CDTClinical Communication Virtual Review in [place], [place] [address] [place] [address] Previsit Preparation (ROSALES DONE ER 07/26 )from Last 3 Months Immunizations ImmunizationAdministration DatesNext DueDTaP (Infanrix, Tripedia)03/12/1976 Polio, Rsedwyqwxcp09/26/7332Jqms87/11/2022,08/05/2011,08/14/2010 Social History Tobacco UseTypesPacks/DayYears UsedDateSmoking Tobacco: PpjyddHmdesuqjnl422.5 Started: 03/18/1981Smokeless Tobacco: Never Tobacco Cessation:Counseling Given: Not Answered Alcohol UseStandard Drinks/WeekCommentsNot Currently0 (1 standard drink = 0.6 oz pure alcohol)Used to drink five to 6 drinks a weekHumiliation, Afraid, Rape, and Kick questionnaireAnswerDate RecordedWithin the last year, have you been afraid of your partner or ex-partner?01/03/2024Within the last year, have you been humiliated or emotionally abused in other ways by your partner or ex-partner?01/03/2024Within the last year, have you been kicked, hit, slapped, or otherwise physically hurt by your partner or ex-partner?01/03/2024Within the last year, have you been raped or forced to have any kind of sexual activity by your partner or ex-partner?01/03/2024Hunger Vital SignAnswerDate Recorded Within the past 12 months, you worried that [...] live07/04/2025Sex and Gender InformationValueDate RecordedSex Assigned at SflegInhg09/17/2025 12:26 PM CDT Legal YolTtgz5611/20/2016 9:23 AM CSTGender HkpalxidShnf79/17/2025 12:26 PM CDT Sexual QnqzmxavssoCydhbcbs80/17/2025 12:26 PM CDT Last Filed Vital Signs Vital SignReadingTime TakenCommentsBlood Qfnweqdj167/8809/21/2025 11:34 AM BLOCK TRIMMER Udful703709/21/2025 11:49 AM EAEJhlzqfeozgo14.4 ??C (97.5 ??F)09/21/2025 11:56 AM CSTRespiratory Kike406611/22/2024 11:49 AM CSTOxygen Uskqskqzyi30%09/21/2025 11:49 AM CSTInhaled Oxygen Concentration--Octeud42 kg (149 lb 14.6 oz)07/30/2025 9:12 AM LMDVwgvxd676 cm (5' 10.47)07/30/2025 9:12 AM CDTBody Mass Index21.22 07/30/2025 9:12 AM CDT Plan of Treatment DateTypeDepartmentCare Team (Latest Contact Info)Mhwwmauzice50/06/2026 1:40 PM CSTVirtual Visit Division of Gastroenterology in [place], [place] [address] [place] [address] Conchita Ontiveros M.D. [address] [place] [address] Health MaintenanceDue DateLast DoneCommentsCT Ozmnhilxqgyv1970Cologuard 1970 6560Pdwrqstpncj1970Colorectal Cancer Ejwiomqavxsi1970Hepatitis C Xnycgbyop1970IPV Vaccines (2 of 3 - 4-dose series) Hepatitis B Vaccines (1 of 3 - 19+ 3-dose series)1989Pneumococcal vaccine (50+ years) (1 of 1 - PCV)2020Zoster Vaccines (1 of 2)2020Depression Screening (Annual PHQ-2)10/18/2024OVID-19 Vaccine (1 - 2024- season) 2025Influenza Vaccine (#1)2025Fasting Glucose for Diabetes Screening /09/2025, 05/29/2025, 01/06/2024, Additional history existsLipid (Cholesterol) Agykagdib95/TaP,Tdap,and Td Vaccines (5 - Td or Tdap)/08/2022, 08/05/2011, 08/14/2010, Additional history exists Medical Devices ImplantedTypeAreaManufacturerDevice IdentifierShelf Expiration DateModel / Serial / LotStnt [facility] Otw 7x7 - [id number] Implanted:Qty: 1 on 09/21/2025 by Kamila Daley M.B.BEdmundoSEdmundo at [facility] Biliary StentCook Lajtjef8607/10/2028G22167 / / [id number] Azur Cx Det 018 4x13 - [id number] Implanted:Qty: 1 on 01/04/2024 by [facility]ier S[facility]D. [facility] CoilTerumo Hvsknuc28/31/[id number] / / [id number] Azur Cx Det 018 2x4 - [id number] Implanted:Qty: 1 on 01/04/2024 by [id number] / / [id number] Azur Cx Det 018 2x4 - [id number] Implanted:Qty: 1 on 01/04/2024 by Olivier oSsa M.D. at [id number] / / [id number] Azur Cx Det 018 4x13 - [id number] Implanted:Qty: 1 on 01/04/2024 by Olivier Sosa M.D. at [id number] / / [id number] Hydropack 18 5cm Implanted:Qty: 1 on 01/04/2024 by [id number] / / [id number] Hydropack 18 5cm Implanted:Qty: 1 on 01/04/2024 by [facility]D. [id number] / / [id number] Hydropack 18 10cm Implanted:Qty: 1 on 01/04/2024 by Olivier Sosa M.D. at [id number] / / [id number] Hydropack 18 20cm Implanted:Qty: 1 on 01/04/2024 by [facility]ier [facility] M.D. at [id number] / / [id number] Axi[employer] Hot Enhncd 15x10 - [id number] Implanted:Qty: 1 on 09/21/2025 by Kamila Daley M.B.BEdmundoS. at [facility] Pancreatic StentBoston Qftpgrbunt79/27/[id number] / / [id number] Procedures Procedure NamePriorityDate/TimeAssociated DiagnosisCommentsCT ABDOMEN PELVIS WITH IV CONTRASTRAD - Routine (most inpatients and all outpatients)10/17/2025 1:31 PM BLOCK TRIMMER Pseudocyst Pancreas FL FLUORO LESS THAN 1 HOURRAD - Routine (most inpatients and all outpatients) 09/21/2025 10:52 AM BLOCK TRIMMER Pseudocyst Pancreas Pancreatitis Acute (HCC) LDA ANE ENDOTRACHEAL AFCSLPBqbtpav98/05/2025 10:23 AM BLOCK TRIMMER GASTROENTEROLOGY IMAGE ZPJNGufnijj96/05/2025 9:55 AM BLOCK TRIMMER UPPER BNCRqgqonx19/05/2025 9:53 AM BLOCK TRIMMER Pseudocyst Pancreas Pancreatitis Acute (HCC) [K85.90] UPPER ENDOSCOPIC ULTRASOUND (EUS)Ipzcmuz0909/21/2025 9:53 AM BLOCK TRIMMER Pseudocyst Pancreas Pancreatitis Acute (HCC) [K85.90] CT ABDOMEN PELVIS WITH IV CONTRASTRAD - Routine (most inpatients and all outpatients)07/29/2025 2:13 PM CDT Pseudocyst Pancreas Pancreatitis Acute (HCC) [K85.90] PROTHROMBIN TIME (PT), WOpsjcni87/12/2025 12:22 PM CDT Pseudocyst Pancreas Pancreatitis Acute (HCC) [K85.90] COMPREHENSIVE METABOLIC PANEL, S/GIaqrbjb00/12/2025 12:22 PM CDT Pseudocyst Pancreas Pancreatitis Acute (HCC) [K85.90] CBC WITH DIFFERENTIAL, RNfdhbfw68/12/2025 12:21 PM CDT Pseudocyst Pancreas Pancreatitis Acute (HCC) [K85.90] LIPID PANEL, SSTAT01/03/2024 3:03 PM CDT from Last 3 Months or Most Recently Relevant to Health Maintenance Results * CT Abdomen Pelvis with IV Contrast (10/17/2025 1:31 PM BLOCK TRIMMER) Only the most recent of2 resultswithin the time period is included. Anatomical RegionLateralityModalityAbdomen, Pelvis, Abdominal RST LOS, Abdominal ARZ LOS, Abdominal FLA LOSN/AComputed Tomography, Computed TomographySpecimen (Source)Anatomical Location / LateralityCollection Method / VolumeCollection TimeReceived Time10/17/2025 1:21 PM BLOCK TRIMMER Impressions 10/17/2025 2:59 PM BLOCK TRIMMER 1. Status post cystogastrostomy stents placement with near complete resolution of the peripancreatic pseudocyst with only residual trace amount of fluid. 2. ??Unchanged appearance of the uncoiled splenic artery embolization coil with migration into pancreatic tail parenchyma/ductal. 3. ??Incidental segmental pulmonary thromboembolism in the bilateral lower lobes. Findings were discussed with Dr. Rachel on 10/17/2025 at 2:55 PM Narrative 10/17/2025 2:59 PM BLOCK TRIMMER EXAM: CT ABDOMEN PELVIS WITH IV CONTRAST [...] 10/17/2025 at 2:55 PM Authorizing ProviderResult TypeResult StatusConchita Ontiveros M.D.IMG CT PROCEDURESFinal Result * FL Fluoro Less Than 1 Hour (09/21/2025 10:52 AM BLOCK TRIMMER)Specimen (Source) Anatomical Location / LateralityCollection Method / VolumeCollection Time Received Time Narrative ERCP LOS RST - 09/21/2025 10:52 AM BLOCK TRIMMER This exam does not require a radiologist review or interpretation. Please refer to the patient's medical record on this date for clinical details. Authorizing ProviderResult TypeResult Christiane Grimaldo, M.S.IMG FLUOROSCOPY PROCEDURESFinal ResultPerforming OrganizationAddressCity/State/ZIP CodePhone Number ERCP LOS RST * LDA ANE ENDOTRACHEAL AIRWAY (09/21/2025 10:23 AM BLOCK TRIMMER) Narrative Nemo Pulido APRN, CRNA, D.N.P. - 09/21/2025 10:23 AM BLOCK TRIMMER Nemo Pulido APRN, CRNA, D.N.P. 09/21/2025 10:32 [...] ETT location: oral VL device: glide scope [place] scope blade size: 3 Tube size: 7 [...] no complications Authorizing ProviderResult TypeResult StatusNemo Pulido APRN, CRNA, D.N.P.ANESTHESIA ORDERABLESFinal Result * Upper EUS-Gastroenterology Image Exam (09/21/2025 9:55 AM BLOCK TRIMMER)Specimen (Source)Anatomical Location / LateralityCollection Method / VolumeCollection TimeReceived Time09/21/2025 9:53 AM BLOCK TRIMMER Narrative IIMS - 09/21/2025 11:12 AM BLOCK TRIMMER This order has been created and auto-finalized to support the import of images acquired without order. The clinical documentation to support these images can be found on the encounter that produced images. Authorizing ProviderResult TypeResult StatusProvider Not In SystemIMG NON RAD IMAGING PROCEDURESFinal ResultPerforming OrganizationAddressCity/State/ZIP Code Phone Number IIMS NA * Upper Endoscopic Ultrasound (EUS) (09/21/2025 9:53 AM BLOCK TRIMMER)Anatomical Region LateralityModalityDigital RadiographySpecimen (Source)Anatomical Location / LateralityCollection Method / VolumeCollection TimeReceived Time09/21/2025 9:53 AM BLOCK TRIMMER Narrative Authorizing ProviderResult TypeResult Christiane Grimaldo, M.S.GI PROCEDURE ORDERABLESFinal Result * Upper EUS (09/21/2025 9:53 AM BLOCK TRIMMER)Anatomical RegionLateralityModalityDigital RadiographySpecimen (Source)Anatomical Location / LateralityCollection Method / VolumeCollection TimeReceived Time09/21/2025 9:53 AM BLOCK TRIMMER Impressions 09/21/2025 11:03 AM BLOCK TRIMMER Post-op Diagnoses: ? - A large 10 cm peripancreatic fluid collection. Successful ? cystgastrostomy with placement of a 15 x 10 mm lumen-apposing metal ? stent as described. A coaxial 7 Kyrgyz by 7 cm double pigtail stent was ? placed into the cavity. ? - Lobular pancreatic parenchyma with hyperechoic duct wall suggestive of ? chronic pancreatitis. Narrative 09/21/2025 11:03 AM BLOCK TRIMMER Gonda 2 GI Patient Name: Polo Oro Date of : 1970 Age: 55 Procedure Date: 09/21/2025 Procedure: ? Upper EUS Providers: ? Ronen Garcia MD, Kalia CrossBEdmundoSEdmundo (Fellow) Referring Provider: ?ANTOLIN Garcia Pre-op Diagnoses: [...] Fr X 7 cm double pigtail stent (ZimSjapper) was placed under ? fluoroscopic guidance into [...] 09/21/2025 9:53 AM Authorizing ProviderResult TypeResult StatusMozora Zaman., M.S.GI PROCEDURE ORDERABLESFinal Result * Prothrombin Time (PT) (07/29/2025 12:22 PM CDT)ComponentValueRef RangeTest MethodAnalysis TimePerformed AtPathologist SignatureProthrombin Time, P12.09.4 - 12.5 sec07/29/2025 12:46 PM CDTDTLINR1.10.9 - 1.110 12:46 PM CDTDTL Comment: ----ADDITIONAL INFORMATION---- Standard intensity warfarin therapeutic range: 2.0 to 3.0 ?? High intensity warfarin therapeutic range: 2.5 to 3.5 Specimen (Source)Anatomical Location / LateralityCollection Method / Volume Collection TimeReceived TimeBlood (Blood, Venous)07/29/2025 12:22 PM CDT 07/29/2025 12:28 PM CDT Narrative Authorizing ProviderResult TypeResult StatusMozora Grimaldo, M.S.LAB BLOOD ADD-ONFinal ResultPerforming OrganizationAddressCity/State/ZIP CodePhone Number [facility] [address] [place] [address], [facility] [address] [place] [address] * (ABNORMAL) Comprehensive Metabolic Panel (07/29/2025 12:22 PM CDT)Component ValueRef RangeTest MethodAnalysis TimePerformed AtPathologist Signature Potassium, S5.03.6 - 5.2 mmol/L1 12:56 PM CDTDTLSodium, S134(L)135 - 145 mmol/L1 12:56 PM CDTDTLChloride, S9998 - 107 mmol/L1 12:56 PM CDTDTLBicarbonate, S2522 - 29 mmol/L1 12:56 PM CDTDTLAnion Und581 - 151 12:56 PM CDTDTLBUN (Blood Urea Nitrogen), S148 - 24 mg/dL07/29/2025 12:56 PM CDTDTLCreatinine0.940.74 - 1.35 mg/dL07/29/2025 12:56 PM CDTDTLEstimated GFR (eGFR)>90>=60 mL/min/BSA07/29/2025 12:56 PM CDTDTL Comment: Estimated GFR calculated using the 2020 CKD_EPI creatinine equation. Calcium, Total, S9.68.6 - 10.0 mg/dL07/29/2025 12:56 PM CDTDTLGlucose, E24049 - 140 mg/dL07/29/2025 12:56 PM CDTDTLProtein, Total, S6.96.3 - 7.9 g/dL07/29/2025 12:56 PM CDTDTLAlbumin, S3.93.5 - 5.0 g/dL07/29/2025 12:56 PM CDTDTLAspartate Aminotransferase (AST), S49(H)8 - 48 U/L1 12:56 PM CDTDTLAlkaline Phosphatase, S7640 - 129 U/L1 12:56 PM CDTDTLAlanine Aminotransferase (ALT), S487 - 55 U/L1 12:56 PM CDTDTLBilirubin, Total, S0.40.0 - 1.2 mg/dL07/29/2025 12:56 PM CDTDTLSpecimen (Source)Anatomical Location / Laterality Collection Method / VolumeCollection TimeReceived TimeBlood (Blood, Venous) 07/29/2025 12:22 PM CDT1 12:27 PM CDT Narrative Authorizing ProviderResult TypeResult StatusMotaaaron HernandezS., M.S.LAB BLOOD ADD-ONFinal ResultPerforming OrganizationAddressCity/State/ZIP CodePhone Number [facility] [address] [place] [address], [facility] DTL [facility] [address] [place] [address] * (ABNORMAL) CBC with Differential, Blood (07/29/2025 12:21 PM CDT)Component ValueRef RangeTest MethodAnalysis TimePerformed AtPathologist Signature Bbgxlgnlfh44.2(L)13.2 - 16.6 g/dL07/29/2025 12:37 PM INAMBOFnbfanonpy88.3(L) 38.3 - 48.6 %07/29/2025 12:37 PM CDTDTLErythrocytes4.01(L)4.35 - 5.65 x10(12)/L1 12:37 PM HPJVEHPDB39.578.2 - 97.9 fL07/29/2025 12:37 PM CDTDTLRBC Distrib Width14.111.8 - 14.5 %07/29/2025 12:37 PM CDTDTLPlatelet Daowd748(H)135 - 317 x10(9)/L1 12:37 PM CDTDTLLeukocytes5.63.4 - 9.6 x10(9)/L1 12:37 PM CDTDTLNeutrophils2.171.56 - 6.45 x10(9)/L 07/29/2025 12:36 PM CDTDHPMLymphocytes2.220.95 - 3.07 x10(9)/L1 12:37 PM CDTDTLMonocytes0.88(H)0.26 - 0.81 x10(9)/L1 12:37 PM CDTDTL Eosinophils0.210.03 - 0.48 x10(9)/L1 12:37 PM CDTDTLBasophils0.09(H) 0.01 - 0.08 x10(9)/L1 12:37 PM CDTDTLSpecimen (Source)Anatomical Location / LateralityCollection Method / VolumeCollection TimeReceived Time Blood (Blood, Venous)07/29/2025 12:21 PM CDT1 12:29 PM CDT Narrative Authorizing ProviderResult TypeResult StatusMozora Elizabeth.S., M.S.LAB BLOOD ADD-ONFinal ResultPerforming OrganizationAddressCity/State/ZIP [place] [address], [facility] [place] [address] * Lipid Panel (01/03/2024 3:03 PM CDT)ComponentValueRef RangeTest MethodAnalysis TimePerformed AtPathologist ToubvisjmOhvccfhlpnxmc91yt/dL01/03/2024 4:56 PM CDTDTLComment: ----REFERENCE VALUE---- Normal: <150 mg/dL Borderline High: 150-199 mg/dL High: 200-499 mg/dL Very High: > or =500 mg/dL Cholesterol, Kdytt481zz/dL01/03/2024 4:56 PM CDTDTLComment: ----REFERENCE VALUE---- Desirable: < 200 mg/dL Borderline High: 200 - 239 mg/dL High: > or = 240 mg/dL Cholesterol, LDL, Abmxlqrvid85hw/dL01/03/2024 4:56 PM CDTDTLComment: ----REFERENCE VALUE---- Desirable: <100 mg/dL Above Desirable: 100-129 mg/dL Borderline High: 130-159 mg/dL High: 160-189 mg/dL Very High: >=190 mg/dL ----ADDITIONAL INFORMATION---- LDL cholesterol calculated using the Allison/NIH equation. Cholesterol, HDL, S72>=40 mg/dL01/03/2024 4:56 PM CDTDTLCholesterol, Non-HDL, Mzdrkvhuhz683cy/dL01/03/2024 4:56 PM CDTDTLComment: ----REFERENCE VALUE---- Desirable: <130 mg/dL Above Desirable: 130-159 mg/dL Borderline High: 160-189 mg/dL High: 190-219 mg/dL Very High: > or =220 mg/dL Fasting (8 HR or more)Udcivpf2001/03/2024 3:36 PM CDTDTLSpecimen (Source) Anatomical Location / LateralityCollection Method / VolumeCollection Time Received TimeBlood (Blood, Venous)01/03/2024 3:03 PM CDT01/03/2024 3:36 PM CDT Narrative Authorizing ProviderResult TypeResult StatusBemarlyn Cleary M.D., Ph.D.LAB BLOOD ADD-ONFinal ResultPerforming OrganizationAddressCity/State/ZIP CodePhone Number [facility] [address] [place] [address], [place] DTL [facility] [address] [place] [address] from Last 3 Months or Most Recently Relevant to Health Maintenance Insurance Advance Directives For more information, please contact: [phone] * Full Code (Latest Code Status on File) Date ActivatedDate InactivatedComments01/03/2024 2:35 PM01/06/2024 2:01 PMQuestion AnswerCommentsFull Code:* Discussed
--- OUTSIDE RECORDS SUMMARY | 2025-10-17 15:33 | XMS_ITS | Encounter Summary ---
Author Organization [facility] Address [address] [place] [address] Care Team Providers Care Pest Control Applicator Name Role Phone Unavailable Primary Care Provider Unavailabl e Encounter Details DateTypeDepartmentCare Team (Latest Contact Info)Jutkzvzbjzd55/05/2025Orders Only Division of Gastroenterology in [place], [place] [address] [place] [phone] Martina Field P.A.-C. [address] [place] [phone] Social History Tobacco UseTypesPacks/DayYears UsedDateSmoking Tobacco: IaqbuuKobnshomsg373.5 Started: 03/18/1981Smokeless Tobacco: NeverAlcohol UseStandard Drinks/Week CommentsNot [...] live07/04/2025Sex and Gender InformationValueDate RecordedSex Assigned at MobcwKkcc53/17/2025 12:26 PM CDT Legal IxvAhhl6611/20/2016 9:23 AM CSTGender DcvhyhgdStzs85/17/2025 12:26 PM CDT Sexual VnmpeljqkhzKbhnvyeh32/17/2025 12:26 PM CDTdocumented as of this encounter Plan of Treatment DateTypeDepartmentCare Team (Latest Contact Info)Rxugthyffhx71/06/2026 1:40 PM CSTVirtual Visit Division of Gastroenterology in [place], [place] [address] [place] [id number] Conchita Ontiveros M.D. [address] [place] [address] documented as of this encounter Visit Diagnoses Not on filedocumented in this encounter
[2025-10-17 15:42] VITALS: BP 155/93; PULSE 86; RESP 20; TEMP 36; O2SAT 100; BMI 23.4
--- NOTE | 2025-10-17 16:10 | CRLHL7_ITS ---
For Patients: As a result of the Century Cures Act, medical imaging exams and procedure reports are released immediately into your electronic medical record. You may view this report before your referring provider. If you have questions, please contact your health care provider. INDICATION: Recent palpitations. Question-maurice possible PE TECHNIQUE: CT chest PE was acquired with Isovue 370, 95 mL IV contrast. 3D MIP series were generated by the technologist and also on the radiologist workstation. COMPARISON: None. FINDINGS: Pulmonary Arteries: Bilateral lower lobe pulmonary emboli both seen on series 4, image 128. Low emboli burden. Aorta: No aneurysm or ulcerating plaques. Heart: Heart size is normal. No pericardial effusion. Mild coronary artery calcifications. Normal RV/LV ratio. No right heart strain. Lungs: 1.4 centimeter triangular pleural-based perifissural nodule superior segment right lower lobe with a configuration suggesting atelectasis. 2 millimeter perifissural nodule right lower lobe series 5, image 98. Pleura: No pleural effusions, pleural thickening, or pneumothorax. Lymph nodes/mediastinum: No mediastinal, hilar, or axillary adenopathy. Chest wall: No masses. Upper abdomen: Internal double pigtail catheter cystogastrostomy drain of a pseudocyst. Bones: Unremarkable for age. IMPRESSION: : 1. Bilateral lower lobe pulmonary emboli with low clot burden. No right heart strain. 2. 1.4 centimeter subpleural atelectasis right lower lobe superior segment. 3. Internal double pigtail catheter cysto gastrostomy drain of a pseudocyst. Critical findings discussed with Dr. Ramos Hyatt at 16:51 [employer]. Please note that all CT scans at this facility use dose modulation, iterative reconstruction, and/or weight-based dosing when appropriate to reduce radiation dose to as low as reasonably achievable. Dictated by Austin Lopez MD @ 10/17/2025 4:57:01 PM (Electronically Signed)
--- NOTE | 2025-10-17 16:10 | ED.GENADULT ---
HPI - General Adult General Chief complaint: Unspecified Complaint, Adult Stated complaint: poss. pulmonary embolism, needs imaging, from [place] Time Seen by Provider: 10/17/25 16:00 History of Present Illness HPI narrative: This 55-year-old male was at an appointment at [place] facility earlier today where he had a CT scan of his abdomen to further evaluate a pseudocyst on his pancreas. On the way home he received a message from a provider there that the radiologist said that there was some questionable finding on his lung suspicious for pulmonary embolism. He was instructed to return or come to the nearest hospital so he came here as this is where he resides. He arrives here with normal vital signs. He does not report any shortness of breath or chest pain. He does not have any unilateral leg swelling or symptoms of deep venous thrombosis. Related Data Home Medications ?Medication ?Instructions ?Recorded ?Confirmed omeprazole 20 mg capsule,delayed 20 mg PO BID 10/17/25 10/17/25 release Previous Rx's ?Medication ?Instructions ?Recorded tramadol 50 mg tablet 50 mg PO Q6H PRN pain #15 tabs 01/09/25 cyclobenzaprine 10 mg tablet 10 mg PO TID #15 tabs 04/14/25 ketorolac 10 mg tablet 10 mg PO TID 5 days #15 tabs 04/14/25 tramadol 50 mg tablet 50 mg PO TID PRN pain #60 tabs 04/14/25 amoxicillin 875 mg-potassium 1 tab PO BID 10 days #20 tabs 09/11/25 clavulanate 125 mg tablet apixaban 5 mg (74 tabs) tablets in See Rx Instructions PO .COMPLEX 10/17/25 a dose pack (Eliquis DVT-PE Treat #74 ea 30D Start) Allergies Allergy/AdvReac Type Severity Reaction Status Date / Time [place] nut Allergy Intermediate swelling, Verified 10/17/25 15:40 itching morphine Allergy Intermediate nausea, Verified 10/17/25 15:40 hives Review of Systems Status of ROS: Reports: 10 or more systems reviewed and unremarkable except as noted in History and below Narrative: Constitutional: No fevers, no weight gain or loss. Eyes: No discharge. No vision changes. HENT: No congestion, no sore throat, no ear pain. Cardiovascular: No chest pain, no palpitations. Respiratory: No shortness of breath, no wheezes, no cough. Gastrointestinal: No abdominal pain, no vomiting, no diarrhea. Genitourinary: No dysuria, no hematuria. Musculoskeletal: Normal range of motion. Skin: No rashes, no pruritis. Neurological: No dizziness, weakness, sensory change, speech change. Endo/Heme/Allergies: No bruising or bleeding. No polydipsia. Pysch: no suicidality, no anxiety, no insomnia. All other systems reviewed and are negative. PFSH PFS Medical History Pancreatitis ?K85.90 - Acute pancreatitis without necrosis or infection, unspecified (ICD-10) Lung mass ?R91.8 - Other nonspecific abnormal finding of lung field (ICD-10) Pancreatic mass ?K86.89 - Other specified diseases of pancreas (ICD-10) Weight loss ?R63.4 - Abnormal weight loss (ICD-10) Hyperlipidemia ?E78.5 - Hyperlipidemia, unspecified (ICD-10) Lipoma of back ?D17.1 - Benign lipomatous neoplasm of skin and subcutaneous tissue of trunk (ICD-10) Dermatitis ?L30.9 - Dermatitis, unspecified (ICD-10) Surgical History S/P anterior Bankart repair of right shoulder (~1989) ?Z98.890 - Other specified postprocedural states (ICD-10) ?Z87.828 - Personal history of other (healed) physical injury and trauma (ICD-10) H/O knee surgery ?Z98.890 - Other specified postprocedural states (ICD-10) History of colonoscopy ?Z98.890 - Other specified postprocedural states (ICD-10) History of shoulder surgery (11/26/21) ?Z98.890 - Other specified postprocedural states (ICD-10) History of dental surgery ?Z92.89 - Personal history of other medical treatment (ICD-10) Previous back surgery ?Z98.890 - Other specified postprocedural states (ICD-10) Social History What is your current living situation?: I presently have a place to live Problems where you live: no known problems In the past 12 months, utilities in danger of being shut off: no In the past 12 mos, have been you worried that your food would run out before you had money to buy more?: never true In the past 12 mos, the food you bought just didn't last and you didn't have money to buy more?: never true Smoking Status: Current every day smoker How often do you have a drink containing alcohol: 2-4 times a month AUDIT-C Alcohol total score: 2 Non-prescribed substance use: denies use How often does anyone, including family, friends and others, physically hurt you: How often does anyone, including family, friends and others, insult or talk down to you: How often does anyone, including family, friends and others, threaten you with harm: How often does anyone, including family, friends and others, scream or curse at you: service: No Exam Narrative: Exam Narrative: Constitutional: Well-developed, well-nourished, no acute distress. HEENT: Normocephalic, atraumatic. Neck: Normal range of motion. Nontender. Supple. Heart: Intact distal pulses. Lungs: No chest discomfort. No wheezes, rhonchi, or rales. Abdomen: Nontender. Back: Normal range of motion. Extremities: Normal range of motion. No injury. Skin: Intact. No rash. Warm. No erythema or pallor. Neurologic: No altered sensation. No weakness. Alert and oriented. Psychiatric: No suicidality. No anxiety or depression. No insomnia. Nursing notes and vitals signs are reviewed. Const: Vital Signs, click to edit/add: Vital Signs - 24 hr 10/17/25 15:42 Temperature 96.8 F L Pulse Rate [Pulse Oximeter] 86 Respiratory Rate 20 Blood Pressure [Ri ght Upper Arm] 155/93 H Pulse Oximetry 100 Oxygen Delivery Me thod Room Air Course Vital Signs Vital signs: Initial Vital Signs Temperature 96.8 F L 10/17/25 15:42 Temperature Source Temporal Artery Scan 10/17/25 15:42 Pulse Rate 86 10/17/25 15:42 Respiratory Rate 20 10/17/25 15:42 Blood Pressure 155/93 H 10/17/25 15:42 Blood Pressure Mean 113 H 10/17/25 15:42 Pulse Oximetry 100 10/17/25 15:42 Oxygen Delivery Method Room Air 10/17/25 15:42 Vital Signs Temperature 96.8 F L 10/17/25 15:42 Pulse Rate 86 10/17/25 15:42 Respiratory Rate 20 10/17/25 15:42 Blood Pressure 155/93 H 10/17/25 15:42 Pulse Oximetry 100 10/17/25 15:42 Oxygen Delivery Method Room Air 10/17/25 15:42 Temperature 96.8 F L 10/17/25 15:42 Pulse Rate 86 10/17/25 15:42 Respiratory Rate 20 10/17/25 15:42 Blood Pressure 155/93 H 10/17/25 15:42 Pulse Oximetry 100 10/17/25 15:42 Oxygen Delivery Method Room Air 10/17/25 15:42 Medical Decision Making MDM Narrative Medical decision making narrative: this patient feels fine and has normal vital signs. That was an incidental finding of abdominal CT scan to note likelihood of pulmonary emboli. CT scan of the chest was done here with IV contrast and does show small bilateral pulmonary emboli. This is a low clot burden and there is no right heart strain. The patient is okay to be discharged home. He did receive a tablet of Eliquis and prescription for the same. I advised him to follow-up with his primary physician and to relay this information to his doctors at [facility] for ongoing management. Discharge Plan Discharge Clinical Impression: Pulmonary embolism Patient Disposition: Home, Self-Care Condition: Stable Additional Instructions: take medication as prescribed. Follow-up with primary physician and specialists at [place] for ongoing management. Return if worsening. Prescriptions: New Eliquis DVT-PE Treat 30D Start 5 mg (74 tabs) tablets,dose pack See Rx Instructions PO .COMPLEX Qty: 74 0RF Rx Instructions: orally per package directions No Action tramadol 50 mg tablet 50 mg PO Q6H PRN (Reason: pain) Qty: 15 0RF amoxicillin-pot clavulanate 875-125 mg tablet 1 tab PO BID 10 Days Qty: 20 0RF omeprazole 20 mg capsule,delayed release(DR/EC) 20 mg PO BID tramadol 50 mg tablet 50 mg PO TID PRN (Reason: pain) Qty: 60 0RF cyclobenzaprine 10 mg tablet 10 mg PO TID Qty: 15 0RF ketorolac 10 mg tablet 10 mg PO TID 5 Days Qty: 15 0RF Follow Up/Referrals: Eleno Vines MD [Primary Care Provider, Internal Medicine] Stand Alone Forms: [employer] Info Instructions
[2025-10-17 17:00] VITALS: BP 158/98; PULSE 71; RESP 16; O2SAT 97
[2025-10-17] MEDS: APIXABAN 5 MG TABLET 10 MG PO (17:15)
== END 2025-10-17 17:19 | disposition home or self-care (01) ==
PROVIDERS: Emergency Provider Emergency Medicine Emergency Medical Services; PCP Internal Medicine
DX: I26.99 Other pulmonary embolism without acute cor pulmonale (principal); F17.200 Nicotine dependence, unspecified, uncomplicated
CPT/HCPCS: 71275; 99284; 99285; A9270; Q9967